=== PATIENT | male | born 1960 | race Caucasian/White ===

== ENCOUNTER 2017-09-04 23:30 | Inpatient (IN) | payer MEDICAID ==
[~2017-09-04] VITALS: Ht 188 cm; Wt 76.7 kg
[2017-09-04 23:30] VITALS: BP 141/107
[2017-09-04 23:45] VITALS: BP 133/82
[2017-09-05] VITALS (42 sets, daily range): BP systolic 100–154; BP diastolic 35–119
[2017-09-05] MEDS ORDERED: ACET-2178 PO (00:55)
[2017-09-05] MEDS ORDERED: PHENYTOIN SODIUM 500 MG in SODIUM CHLORIDE 0.9% 50 ML IV SCH (01:30)
[2017-09-05] MEDS ORDERED: LEVETIRACETAM 500MG PREMIX 100 ML IV SCH (02:00)
[2017-09-05] MEDS: DEXT 5%/LACTATED RINGERS 1,000 ML IV SCH ×2 (03:14→17:51)
[2017-09-05] MEDS: PHENYTOIN SODIUM 100MG/2ML VIAL IV SCH ×3 (06:28→22:14)
[2017-09-05] MEDS ORDERED: GABA400C PO (07:33)
[2017-09-05] MEDS ORDERED: CALC-823 PO (07:33)
[2017-09-05] MEDS ORDERED: DOCU-138 PO (07:33)
[2017-09-05] MEDS ORDERED: FERR324T4 PO (07:33)
[2017-09-05] MEDS ORDERED: OMEG-118 PO (07:33)
[2017-09-05] MEDS: LEVETIRACETAM 500MG PREMIX 100 ML IV SCH ×2 (11:12→20:41)
[2017-09-05] MEDS ORDERED: LORAZEPAM 2MG/ML CPJ IV PRN (13:15)
[2017-09-05] MEDS ORDERED: HYDROXYZINE 25MG TABLET PO PRN (13:15)
[2017-09-05] MEDS: OLANZAPINE 5MG TABLET ODT PO SCH ×2 (13:15→17:12)
[2017-09-05] MEDS: LORAZEPAM 2MG/ML CPJ IV PRN ×2 (13:27→20:54)
[2017-09-05] MEDS: QUETIAPINE FUMARATE 100MG TABLET PO SCH ×2 (14:01→17:12)
[2017-09-05 15:06] LABS: BASOPHILS % 0.6 % (0.0-2.0); EOSINOPHILS % 2.3 % (0.0-5.0); HEMATOCRIT. 43.1 % (42.0-52.0); HEMOGLOBIN. 14.6 g/dL (14.0-18.0); LYMPHOCYTES % 15.8 % (20.0-50.0); MEAN CORPUSCULAR HEMOGLOBIN 30.9 pg (28.0-32.0); MEAN CORPUSCULAR VOLUME 91.1 fL (80.0-94.0); MEAN PLATELET VOLUME 7.7 fl (7.4-10.4); MONOCYTES % 10.6 % (2.0-8.0); NEUTROPHILS % 70.7 % (40.0-76.0); PLATELET 258 x1000/uL (130-400); RED BLOOD CELL COUNT 4.73 mill/uL (4.7-6.1); RED CELL DISTRIBUTION WIDTH 14.7 % (11.6-14.6)
[2017-09-05 15:12] LABS: INR 1.1; PARTIAL THROMBOPLASTIN TIME 31.7 sec (23.4-31.0); PROTHROMBIN TIME 11.4 sec (9.4-11.6)
[2017-09-05 15:28] LABS: CHLORIDE 106 mEq/L (98-107)
[2017-09-05 15:36] LABS: CREATINE KINASE 296 IU/L (39-308)
[2017-09-06] VITALS (58 sets, daily range): BP systolic 101–166; BP diastolic 48–101
[2017-09-06] MEDS: DEXT 5%/LACTATED RINGERS 1,000 ML IV SCH (03:00)
[2017-09-06] MEDS: PHENYTOIN SODIUM 100MG/2ML VIAL IV SCH ×3 (06:24→21:43)
[2017-09-06] MEDS ORDERED: GELATIN SPONGE,ABSORBABLE SZ 100 ONE (06:40)
[2017-09-06] MEDS ORDERED: BACITRACIN 50,000 UNITS/VIAL ONE (06:41)
[2017-09-06] MEDS ORDERED: THROMBIN (BOVINE) 5000 UNITS/VIAL TOP ONE (06:41)
[2017-09-06] MEDS ORDERED: NORMAL SALINE 0.9% 10 ML SYR ONE (06:41)
[2017-09-06] MEDS ORDERED: BACITRACIN 15GM TUBE TOP ONE (06:42)
[2017-09-06] MEDS ORDERED: POVIDONE-IODINE OINT 28.4GM TOP ONE (06:42)
[2017-09-06] MEDS ORDERED: FENTANYL CITRATE/PF 50MCG/ML 5ML VIAL ONE (08:04)
[2017-09-06] MEDS ORDERED: ROCURONIUM BROMIDE 10MG/ML VIAL 5ML IV ONE ×2 (08:04→09:26)
[2017-09-06] MEDS ORDERED: PROPOFOL 200MG/20ML VIAL IV ONE (08:04)
[2017-09-06] MEDS: LEVETIRACETAM 500MG PREMIX 100 ML IV SCH ×2 (08:10→21:06)
[2017-09-06] MEDS ORDERED: ESMOLOL HCL 10MG/ML 10ML VIAL IV ONE (08:10)
[2017-09-06] MEDS ORDERED: PHENYLEPHRINE HCL 10 MG/ML 1ML (IV VIAL) IV ONE (08:11)
[2017-09-06] MEDS ORDERED: MIDAZOLAM HCL 2 MG/2 ML VIAL ONE (08:58)
[2017-09-06] MEDS ORDERED: NITROGLYCERIN 50MG PREMIX 0 ML IV ONE (08:58)
[2017-09-06] MEDS: QUETIAPINE FUMARATE 100MG TABLET PO SCH ×3 (09:00→17:00)
[2017-09-06] MEDS ORDERED: NICARDIPINE 100 MG in SODIUM CHLORIDE 0.9% 60 ML IV PRN (09:00)
[2017-09-06] MEDS ORDERED: HYDROCODONE/APAP 7.5/325MG 1 TAB TABLET PO PRN (09:00)
[2017-09-06] MEDS ORDERED: DEXT 5%/LACTATED RINGERS 1,000 ML IV SCH ×2 (09:00→19:30)
[2017-09-06] MEDS: OLANZAPINE 5MG TABLET ODT PO SCH ×3 (09:00→17:00)
[2017-09-06] MEDS ORDERED: NEOSTIGMINE METHYLSULFATE 1MG/ML 10 ML VIAL ONE (10:05)
[2017-09-06] MEDS ORDERED: GLYCOPYRROLATE 0.2 MG/ML 2ML VIAL ONE (10:05)
[2017-09-06] MEDS ORDERED: MEPERIDINE HCL/PF 100MG/ML CPJ ONE (10:29)
[2017-09-06] MEDS ORDERED: CEFAZOLIN SODIUM 1000MG/VIAL IV SCH (14:00)
[2017-09-06] MEDS: CEFAZOLIN 1000MG PREMIX 50 ML IV SCH (16:44)
[2017-09-06] MEDS: MORPHINE SULFATE 4 MG/ML CPJ (NOT FOR IM USE) IV PRN (16:54)
[2017-09-06] MEDS: LORAZEPAM 2MG/ML CPJ IV PRN (21:43)
[2017-09-07] VITALS (50 sets, daily range): BP systolic 98–152; BP diastolic 61–107
[2017-09-07] MEDS: CEFAZOLIN 1000MG PREMIX 50 ML IV SCH ×3 (02:11→16:46)
[2017-09-07] MEDS: LORAZEPAM 2MG/ML CPJ IV PRN (05:16)
[2017-09-07 05:19] LABS: HEMATOCRIT. 39.8 % (42.0-52.0); HEMOGLOBIN. 13.5 g/dL (14.0-18.0); MEAN CORPUSCULAR HEMOGLOBIN 30.7 pg (28.0-32.0); MEAN CORPUSCULAR VOLUME 90.6 fL (80.0-94.0); MEAN PLATELET VOLUME 8.1 fl (7.4-10.4); PLATELET 250 x1000/uL (130-400); RED BLOOD CELL COUNT 4.39 mill/uL (4.7-6.1); RED CELL DISTRIBUTION WIDTH 14.3 % (11.6-14.6)
[2017-09-07 05:30] LABS: CHLORIDE 105 mEq/L (98-107)
[2017-09-07] MEDS: PHENYTOIN SODIUM 100MG/2ML VIAL IV SCH ×3 (05:54→21:18)
[2017-09-07] MEDS: LEVETIRACETAM 500MG PREMIX 100 ML IV SCH ×2 (08:22→20:32)
[2017-09-07] MEDS ORDERED: PHENYTOIN SODIUM 500 MG in SODIUM CHLORIDE 0.9% 50 ML IV NR (11:00)
[2017-09-07] MEDS: QUETIAPINE FUMARATE 100MG TABLET PO SCH ×3 (11:04→16:50)
[2017-09-07] MEDS: OLANZAPINE 5MG TABLET ODT PO SCH ×3 (11:05→16:50)
[2017-09-07] MEDS: MORPHINE SULFATE 4 MG/ML CPJ (NOT FOR IM USE) IV PRN (12:31)
[2017-09-07 12:48] LABS: PLATELET ESTIMATE NORMAL
[2017-09-08] VITALS (51 sets, daily range): BP systolic 101–165; BP diastolic 27–154
[2017-09-08] MEDS: CEFAZOLIN 1000MG PREMIX 50 ML IV SCH ×2 (01:41→08:20)
[2017-09-08] MEDS: PHENYTOIN SODIUM 100MG/2ML VIAL IV SCH ×3 (05:46→21:35)
[2017-09-08] MEDS: OLANZAPINE 5MG TABLET ODT PO SCH ×3 (08:20→17:07)
[2017-09-08] MEDS: QUETIAPINE FUMARATE 100MG TABLET PO SCH ×3 (08:20→17:07)
[2017-09-08] MEDS: LEVETIRACETAM 500MG PREMIX 100 ML IV SCH ×2 (09:05→20:50)
[2017-09-08] MEDS: MORPHINE SULFATE 4 MG/ML CPJ (NOT FOR IM USE) IV PRN (15:14)
[2017-09-09] VITALS (48 sets, daily range): BP systolic 73–152; BP diastolic 26–124
[2017-09-09] MEDS: PHENYTOIN SODIUM 100MG/2ML VIAL IV SCH (05:23)
[2017-09-09] MEDS: LORAZEPAM 2MG/ML CPJ IV PRN ×2 (05:24→20:41)
[2017-09-09 05:45] LABS: BASOPHILS % 0.7 % (0.0-2.0); EOSINOPHILS % 1.5 % (0.0-5.0); HEMATOCRIT. 40.9 % (42.0-52.0); LYMPHOCYTES % 14.1 % (20.0-50.0); MEAN CORPUSCULAR HEMOGLOBIN 31.2 pg (28.0-32.0); MEAN CORPUSCULAR VOLUME 91.2 fL (80.0-94.0); MONOCYTES % 9.7 % (2.0-8.0); PLATELET 277 x1000/uL (130-400); RED BLOOD CELL COUNT 4.48 mill/uL (4.7-6.1); RED CELL DISTRIBUTION WIDTH 14.4 % (11.6-14.6)
[2017-09-09 06:20] LABS: CHLORIDE 105 mEq/L (98-107)
[2017-09-09] MEDS: OLANZAPINE 5MG TABLET ODT PO SCH ×3 (08:59→17:17)
[2017-09-09] MEDS: QUETIAPINE FUMARATE 100MG TABLET PO SCH ×3 (08:59→17:17)
[2017-09-09] MEDS: LEVETIRACETAM 500MG PREMIX 100 ML IV SCH (09:01)
[2017-09-09] MEDS: PHENYTOIN SODIUM EXTENDED 100MG CAPSULE PO SCH ×2 (14:51→22:25)
[2017-09-09] MEDS: LEVOFLOXACIN 500MG TABLET PO SCH (16:52)
[2017-09-09] MEDS: LEVETIRACETAM 500MG TABLET PO SCH (20:46)
[2017-09-10] VITALS (47 sets, daily range): BP systolic 96–149; BP diastolic 53–103
[2017-09-10] MEDS: PHENYTOIN SODIUM EXTENDED 100MG CAPSULE PO SCH ×3 (05:32→21:13)
[2017-09-10] MEDS: OLANZAPINE 5MG TABLET ODT PO SCH ×3 (09:55→16:55)
[2017-09-10] MEDS: QUETIAPINE FUMARATE 100MG TABLET PO SCH ×3 (09:55→16:55)
[2017-09-10] MEDS: LEVETIRACETAM 500MG TABLET PO SCH ×2 (09:55→21:13)
[2017-09-10] MEDS: LEVOFLOXACIN 500MG TABLET PO SCH (13:15)
[2017-09-11] VITALS (31 sets, daily range): BP systolic 104–151; BP diastolic 49–98
[2017-09-11] MEDS: HALOPERIDOL LACTATE 5MG/ML VIAL IM PRN ×3 (02:04→21:49)
[2017-09-11] MEDS: PHENYTOIN SODIUM EXTENDED 100MG CAPSULE PO SCH ×3 (05:17→21:51)
[2017-09-11] MEDS: OLANZAPINE 5MG TABLET ODT PO SCH ×3 (08:45→18:09)
[2017-09-11] MEDS: QUETIAPINE FUMARATE 100MG TABLET PO SCH ×3 (08:45→18:09)
[2017-09-11] MEDS: LEVETIRACETAM 500MG TABLET PO SCH ×2 (08:46→21:51)
[2017-09-11] MEDS: LEVOFLOXACIN 500MG TABLET PO SCH (13:43)
[2017-09-12] VITALS: BP 123/80
[2017-09-12 04:00] VITALS: BP 112/76
[2017-09-12] MEDS: PHENYTOIN SODIUM EXTENDED 100MG CAPSULE PO SCH ×3 (06:00→22:42)
[2017-09-12 08:00] VITALS: BP 121/65
[2017-09-12] MEDS: QUETIAPINE FUMARATE 100MG TABLET PO SCH ×3 (08:35→17:52)
[2017-09-12] MEDS: LEVETIRACETAM 500MG TABLET PO SCH ×2 (08:36→20:36)
[2017-09-12 12:00] VITALS: BP 111/76
[2017-09-12] MEDS: LEVOFLOXACIN 500MG TABLET PO SCH (12:07)
[2017-09-12] MEDS: OLANZAPINE 5MG TABLET ODT PO SCH ×3 (12:07→17:52)
[2017-09-12] MEDS: HALOPERIDOL LACTATE 5MG/ML VIAL IM PRN ×2 (15:47→23:50)
[2017-09-12 16:00] VITALS: BP 123/88
[2017-09-12 20:00] VITALS: BP 121/78
[2017-09-13] VITALS: BP 121/79
[2017-09-13 04:00] VITALS: BP 113/85
[2017-09-13] MEDS: PHENYTOIN SODIUM EXTENDED 100MG CAPSULE PO SCH ×3 (06:44→21:50)
[2017-09-13 08:00] VITALS: BP 117/82
[2017-09-13] MEDS: LEVETIRACETAM 500MG TABLET PO SCH ×2 (08:43→21:50)
[2017-09-13] MEDS: QUETIAPINE FUMARATE 100MG TABLET PO SCH ×3 (08:43→16:45)
[2017-09-13] MEDS: OLANZAPINE 5MG TABLET ODT PO SCH ×3 (08:46→16:45)
[2017-09-13] MEDS: LEVOFLOXACIN 500MG TABLET PO SCH (11:51)
[2017-09-13 12:00] VITALS: BP 118/86
[2017-09-13 16:00] VITALS: BP 124/82
[2017-09-13] MEDS: HALOPERIDOL LACTATE 5MG/ML VIAL IM PRN ×2 (16:45→20:32)
[2017-09-13 20:00] VITALS: BP 124/84
[2017-09-14] VITALS: BP 122/80
[2017-09-14 04:00] VITALS: BP 118/78
[2017-09-14] MEDS: HALOPERIDOL LACTATE 5MG/ML VIAL IM PRN (04:40)
[2017-09-14] MEDS: PHENYTOIN SODIUM EXTENDED 100MG CAPSULE PO SCH ×3 (07:17→21:13)
[2017-09-14 07:29] VITALS: BP 104/76
[2017-09-14] MEDS: QUETIAPINE FUMARATE 100MG TABLET PO SCH ×2 (08:12→19:14)
[2017-09-14] MEDS: OLANZAPINE 5MG TABLET ODT PO SCH ×2 (08:12→19:14)
[2017-09-14] MEDS: LEVETIRACETAM 500MG TABLET PO SCH ×2 (08:12→21:13)
[2017-09-14] MEDS: LEVOFLOXACIN 500MG TABLET PO SCH (10:02)
[2017-09-14 10:56] VITALS: BP 120/64
[2017-09-14] MEDS: LORAZEPAM 2MG/ML CPJ IV PRN ×2 (15:25→21:13)
[2017-09-14 15:51] VITALS: BP 109/66
[2017-09-14 20:00] VITALS: BP 128/77
[2017-09-15] VITALS: BP 145/88
[2017-09-15] MEDS: LORAZEPAM 2MG/ML CPJ IV PRN ×3 (02:47→16:22)
[2017-09-15] MEDS: HALOPERIDOL LACTATE 5MG/ML VIAL IM PRN ×2 (03:10→17:41)
[2017-09-15 04:00] VITALS: BP 136/77
[2017-09-15] MEDS: PHENYTOIN SODIUM EXTENDED 100MG CAPSULE PO SCH ×3 (06:45→21:09)
[2017-09-15 08:00] VITALS: BP 120/81
[2017-09-15] MEDS: QUETIAPINE FUMARATE 100MG TABLET PO SCH ×2 (10:09→16:26)
[2017-09-15] MEDS: LEVOFLOXACIN 500MG TABLET PO SCH (10:09)
[2017-09-15] MEDS: LEVETIRACETAM 500MG TABLET PO SCH ×2 (10:09→21:09)
[2017-09-15] MEDS: OLANZAPINE 5MG TABLET ODT PO SCH ×2 (10:11→16:26)
[2017-09-15 12:00] VITALS: BP 119/74
[2017-09-15 16:00] VITALS: BP 102/67
[2017-09-16] MEDS: HALOPERIDOL LACTATE 5MG/ML VIAL IM PRN ×3 (01:44→18:02)
[2017-09-16] MEDS: PHENYTOIN SODIUM EXTENDED 100MG CAPSULE PO SCH ×3 (05:33→21:07)
[2017-09-16 07:36] LABS: BASOPHILS % 1.3 % (0.0-2.0); EOSINOPHILS % 2.8 % (0.0-5.0); HEMATOCRIT. 42.3 % (42.0-52.0); HEMOGLOBIN. 14.4 g/dL (14.0-18.0); LYMPHOCYTES % 22.7 % (20.0-50.0); MEAN CORPUSCULAR VOLUME 90.8 fL (80.0-94.0); MEAN PLATELET VOLUME 7.2 fl (7.4-10.4); MONOCYTES % 8.7 % (2.0-8.0); NEUTROPHILS % 64.5 % (40.0-76.0); PLATELET 400 x1000/uL (130-400); RED BLOOD CELL COUNT 4.65 mill/uL (4.7-6.1); RED CELL DISTRIBUTION WIDTH 14.1 % (11.6-14.6)
[2017-09-16 08:00] VITALS: BP 124/85
[2017-09-16 08:07] LABS: CHLORIDE 105 mEq/L (98-107)
[2017-09-16] MEDS: LEVETIRACETAM 500MG TABLET PO SCH ×2 (09:02→21:07)
[2017-09-16] MEDS: QUETIAPINE FUMARATE 100MG TABLET PO SCH ×2 (09:03→18:02)
[2017-09-16] MEDS: OLANZAPINE 5MG TABLET ODT PO SCH ×2 (09:03→18:00)
[2017-09-16] MEDS: LEVOFLOXACIN 500MG TABLET PO SCH (10:08)
[2017-09-16 12:00] VITALS: BP 126/83
[2017-09-16] MEDS: LORAZEPAM 2MG/ML CPJ IV PRN ×2 (15:05→21:07)
[2017-09-16 16:00] VITALS: BP 124/80
[2017-09-16 20:00] VITALS: BP 113/74
[2017-09-17] MEDS: LORAZEPAM 2MG/ML CPJ IV PRN ×2 (01:12→06:39)
[2017-09-17 04:00] VITALS: BP 137/80
[2017-09-17] MEDS: PHENYTOIN SODIUM EXTENDED 100MG CAPSULE PO SCH ×3 (06:39→22:14)
[2017-09-17 08:00] VITALS: BP 121/81
[2017-09-17] MEDS: LEVETIRACETAM 500MG TABLET PO SCH ×2 (09:27→22:14)
[2017-09-17] MEDS: QUETIAPINE FUMARATE 100MG TABLET PO SCH ×2 (09:27→16:29)
[2017-09-17] MEDS: OLANZAPINE 5MG TABLET ODT PO SCH ×2 (09:27→16:29)
[2017-09-17 12:00] VITALS: BP 146/89
[2017-09-17] MEDS: HALOPERIDOL LACTATE 5MG/ML VIAL IM PRN ×2 (12:51→22:22)
[2017-09-17 16:00] VITALS: BP 121/77
[2017-09-17 20:00] VITALS: BP 121/75
[2017-09-18] VITALS: BP 133/79
[2017-09-18] MEDS: LORAZEPAM 2MG/ML CPJ IV PRN ×3 (03:55→21:14)
[2017-09-18 04:00] VITALS: BP 130/71
[2017-09-18] MEDS: PHENYTOIN SODIUM EXTENDED 100MG CAPSULE PO SCH ×3 (06:10→21:42)
[2017-09-18 07:55] VITALS: BP 121/66
[2017-09-18] MEDS: LEVETIRACETAM 500MG TABLET PO SCH ×2 (08:34→21:42)
[2017-09-18] MEDS: QUETIAPINE FUMARATE 100MG TABLET PO SCH ×2 (08:34→17:00)
[2017-09-18] MEDS: OLANZAPINE 5MG TABLET ODT PO SCH ×2 (08:34→17:00)
[2017-09-18] MEDS: LORAZEPAM 2MG/ML CPJ IV NR ×2 (10:55→16:41)
[2017-09-18 12:02] VITALS: BP 119/81
[2017-09-18 16:00] VITALS: BP 106/78
[2017-09-18] MEDS: HALOPERIDOL LACTATE 5MG/ML VIAL IM PRN (16:04)
[2017-09-18 20:00] VITALS: BP 119/72
[2017-09-19] VITALS: BP 121/78
[2017-09-19] MEDS: HALOPERIDOL LACTATE 5MG/ML VIAL IM PRN ×3 (00:32→17:19)
[2017-09-19] MEDS: LORAZEPAM 2MG/ML CPJ IV PRN (01:55)
[2017-09-19 04:00] VITALS: BP 132/82
[2017-09-19] MEDS: PHENYTOIN SODIUM EXTENDED 100MG CAPSULE PO SCH ×3 (07:30→21:41)
[2017-09-19 08:00] VITALS: BP 128/88
[2017-09-19] MEDS: QUETIAPINE FUMARATE 100MG TABLET PO SCH ×2 (09:03→17:18)
[2017-09-19] MEDS: OLANZAPINE 5MG TABLET ODT PO SCH ×2 (09:03→17:00)
[2017-09-19] MEDS: LEVETIRACETAM 500MG TABLET PO SCH ×2 (09:04→21:41)
[2017-09-19 12:00] VITALS: BP 107/73
[2017-09-19] MEDS: LORAZEPAM 2MG/ML CPJ IM PRN (13:07)
[2017-09-19 16:00] VITALS: BP 117/81
[2017-09-19 20:00] VITALS: BP 136/79
[2017-09-19] MEDS: CLONAZEPAM 1MG TABLET PO SCH (21:41)
[2017-09-19] MEDS: RISPERIDONE 1MG TABLET PO SCH (21:48)
[2017-09-20] VITALS: BP 130/90
[2017-09-20] MEDS: HALOPERIDOL LACTATE 5MG/ML VIAL IM PRN ×3 (00:54→18:25)
[2017-09-20 04:00] VITALS: BP 123/91
[2017-09-20 08:00] VITALS: BP 102/77
[2017-09-20] MEDS: OLANZAPINE 5MG TABLET ODT PO SCH ×2 (08:42→18:25)
[2017-09-20] MEDS: RISPERIDONE 1MG TABLET PO SCH ×2 (08:42→21:13)
[2017-09-20] MEDS: LEVETIRACETAM 500MG TABLET PO SCH ×2 (08:42→21:12)
[2017-09-20] MEDS: PHENYTOIN SODIUM EXTENDED 100MG CAPSULE PO SCH ×3 (09:32→21:12)
[2017-09-20] MEDS: CLONAZEPAM 1MG TABLET PO SCH ×3 (09:32→21:12)
[2017-09-20 12:00] VITALS: BP 104/72
[2017-09-20 16:00] VITALS: BP 111/73
[2017-09-20 20:00] VITALS: BP 115/78
[2017-09-21] VITALS: BP 101/71
[2017-09-21 04:00] VITALS: BP 121/84
[2017-09-21] MEDS: PHENYTOIN SODIUM EXTENDED 100MG CAPSULE PO SCH ×3 (06:18→21:44)
[2017-09-21] MEDS: CLONAZEPAM 1MG TABLET PO SCH ×3 (06:18→21:44)
[2017-09-21 07:51] VITALS: BP 111/77
[2017-09-21] MEDS: LEVETIRACETAM 500MG TABLET PO SCH ×2 (08:31→20:34)
[2017-09-21] MEDS: RISPERIDONE 1MG TABLET PO SCH ×2 (08:32→20:34)
[2017-09-21] MEDS: OLANZAPINE 5MG TABLET ODT PO SCH ×2 (08:32→17:17)
[2017-09-21 12:00] VITALS: BP 109/78
[2017-09-21 16:00] VITALS: BP 106/74
[2017-09-21 20:00] VITALS: BP 123/79
[2017-09-21] MEDS: LORAZEPAM 2MG/ML CPJ IM PRN (20:34)
[2017-09-22] VITALS: BP 124/87
[2017-09-22 04:00] VITALS: BP 139/74
[2017-09-22] MEDS: CLONAZEPAM 1MG TABLET PO SCH ×3 (06:56→22:15)
[2017-09-22] MEDS: PHENYTOIN SODIUM EXTENDED 100MG CAPSULE PO SCH ×3 (06:56→22:13)
[2017-09-22 08:11] VITALS: BP 122/83
[2017-09-22 12:04] VITALS: BP 114/78
[2017-09-22] MEDS: LEVETIRACETAM 500MG TABLET PO SCH ×2 (14:15→22:14)
[2017-09-22] MEDS: RISPERIDONE 1MG TABLET PO SCH ×2 (14:15→22:14)
[2017-09-22] MEDS: OLANZAPINE 5MG TABLET ODT PO SCH ×2 (14:17→22:14)
[2017-09-22 16:00] VITALS: BP 95/72
[2017-09-22 20:00] VITALS: BP 101/65
[2017-09-23] VITALS (7 sets, daily range): BP systolic 106–127; BP diastolic 69–84
[2017-09-23] MEDS: RISPERIDONE 1MG TABLET PO SCH ×2 (10:37→22:31)
[2017-09-23] MEDS: PHENYTOIN SODIUM EXTENDED 100MG CAPSULE PO SCH ×2 (10:37→22:31)
[2017-09-23] MEDS: OLANZAPINE 5MG TABLET ODT PO SCH ×2 (10:37→17:24)
[2017-09-23] MEDS: CLONAZEPAM 1MG TABLET PO SCH ×2 (10:37→22:32)
[2017-09-23] MEDS: LEVETIRACETAM 500MG TABLET PO SCH ×2 (10:37→22:32)
[2017-09-24] VITALS: BP 118/74
[2017-09-24 04:00] VITALS: BP 130/86
[2017-09-24] MEDS: PHENYTOIN SODIUM EXTENDED 100MG CAPSULE PO SCH ×3 (06:55→21:22)
[2017-09-24] MEDS: CLONAZEPAM 1MG TABLET PO SCH ×3 (06:55→21:22)
[2017-09-24 08:12] VITALS: BP 121/81
[2017-09-24] MEDS: LEVETIRACETAM 500MG TABLET PO SCH ×2 (08:27→21:22)
[2017-09-24] MEDS: RISPERIDONE 1MG TABLET PO SCH ×2 (08:27→21:22)
[2017-09-24] MEDS: OLANZAPINE 5MG TABLET ODT PO SCH ×2 (08:27→18:21)
[2017-09-24 12:00] VITALS: BP 110/82
[2017-09-24 16:00] VITALS: BP 116/70
[2017-09-24 20:00] VITALS: BP 107/77
[2017-09-24] MEDS: HALOPERIDOL LACTATE 5MG/ML VIAL IM PRN (21:22)
[2017-09-25] VITALS: BP 122/80
[2017-09-25 04:00] VITALS: BP 110/76
[2017-09-25] MEDS: PHENYTOIN SODIUM EXTENDED 100MG CAPSULE PO SCH ×3 (06:20→22:18)
[2017-09-25 08:00] VITALS: BP 125/80
[2017-09-25] MEDS: LEVETIRACETAM 500MG TABLET PO SCH ×2 (09:56→22:19)
[2017-09-25] MEDS: RISPERIDONE 1MG TABLET PO SCH ×2 (09:56→22:18)
[2017-09-25] MEDS: OLANZAPINE 5MG TABLET ODT PO SCH ×2 (09:59→18:26)
[2017-09-25 12:00] VITALS: BP 103/80
[2017-09-25 15:56] VITALS: BP 109/64
[2017-09-25] MEDS: HALOPERIDOL LACTATE 5MG/ML VIAL IM PRN (16:56)
[2017-09-25 20:00] VITALS: BP 118/76
[2017-09-26] MEDS: HALOPERIDOL LACTATE 5MG/ML VIAL IM PRN (00:53)
[2017-09-26 04:00] VITALS: BP 106/66
[2017-09-26] MEDS: PHENYTOIN SODIUM EXTENDED 100MG CAPSULE PO SCH ×3 (06:18→21:56)
[2017-09-26 07:32] VITALS: BP 101/74
[2017-09-26] MEDS: LEVETIRACETAM 500MG TABLET PO SCH ×2 (10:01→21:56)
[2017-09-26] MEDS: RISPERIDONE 1MG TABLET PO SCH ×2 (10:01→21:57)
[2017-09-26] MEDS: OLANZAPINE 5MG TABLET ODT PO SCH ×2 (10:02→16:57)
[2017-09-26 11:21] VITALS: BP 107/84
[2017-09-26 16:06] VITALS: BP 107/76
[2017-09-26 20:00] VITALS: BP 106/72
[2017-09-27] VITALS: BP 114/80
[2017-09-27 04:00] VITALS: BP 125/82
[2017-09-27] MEDS: PHENYTOIN SODIUM EXTENDED 100MG CAPSULE PO SCH ×2 (05:52→13:27)
[2017-09-27 07:52] VITALS: BP 109/72
[2017-09-27] MEDS: RISPERIDONE 1MG TABLET PO SCH ×2 (09:33→20:17)
[2017-09-27] MEDS: LEVETIRACETAM 500MG TABLET PO SCH ×2 (09:34→20:16)
[2017-09-27] MEDS: OLANZAPINE 5MG TABLET ODT PO SCH ×2 (09:34→16:42)
[2017-09-27 11:21] VITALS: BP 120/80
[2017-09-27 15:52] VITALS: BP 113/68
[2017-09-27 20:00] VITALS: BP 117/72
[2017-09-28] VITALS: BP 115/74
[2017-09-28] MEDS: PHENYTOIN SODIUM EXTENDED 100MG CAPSULE PO SCH ×4 (00:42→21:09)
[2017-09-28 04:00] VITALS: BP 124/78
[2017-09-28 08:00] VITALS: BP 105/75
[2017-09-28] MEDS: OLANZAPINE 5MG TABLET ODT PO SCH ×2 (09:13→17:15)
[2017-09-28] MEDS: LEVETIRACETAM 500MG TABLET PO SCH ×2 (09:14→21:09)
[2017-09-28] MEDS: RISPERIDONE 1MG TABLET PO SCH ×2 (09:14→21:09)
[2017-09-28 12:00] VITALS: BP 99/72
[2017-09-28 16:00] VITALS: BP 111/79
[2017-09-29] VITALS: BP 126/78
[2017-09-29 04:00] VITALS: BP 117/62
[2017-09-29] MEDS: PHENYTOIN SODIUM EXTENDED 100MG CAPSULE PO SCH ×3 (05:55→21:45)
[2017-09-29 08:00] VITALS: BP 101/67
[2017-09-29] MEDS: OLANZAPINE 5MG TABLET ODT PO SCH ×2 (09:29→17:35)
[2017-09-29] MEDS: LEVETIRACETAM 500MG TABLET PO SCH ×2 (09:29→21:45)
[2017-09-29] MEDS: RISPERIDONE 1MG TABLET PO SCH ×2 (09:30→21:45)
[2017-09-29 12:00] VITALS: BP 106/74
[2017-09-29 16:00] VITALS: BP 102/66
[2017-09-29] MEDS: HALOPERIDOL LACTATE 5MG/ML VIAL IM PRN (18:03)
[2017-09-30] VITALS (7 sets, daily range): BP systolic 102–126; BP diastolic 63–79
[2017-09-30] MEDS: HALOPERIDOL LACTATE 5MG/ML VIAL IM PRN ×3 (02:09→22:49)
[2017-09-30] MEDS: PHENYTOIN SODIUM EXTENDED 100MG CAPSULE PO SCH ×3 (05:54→21:00)
[2017-09-30 07:11] LABS: BASOPHILS % 1.3 % (0.0-2.0); HEMATOCRIT. 39.9 % (42.0-52.0); HEMOGLOBIN. 13.3 g/dL (14.0-18.0); LYMPHOCYTES % 36.7 % (20.0-50.0); MEAN CORPUSCULAR HEMOGLOBIN 29.9 pg (28.0-32.0); MEAN CORPUSCULAR VOLUME 89.5 fL (80.0-94.0); MONOCYTES % 10.2 % (2.0-8.0); NEUTROPHILS % 48.8 % (40.0-76.0); PLATELET 278 x1000/uL (130-400); RED BLOOD CELL COUNT 4.46 mill/uL (4.7-6.1); RED CELL DISTRIBUTION WIDTH 13.8 % (11.6-14.6)
[2017-09-30 07:31] LABS: CHLORIDE 109 mEq/L (98-107)
[2017-09-30] MEDS: LEVETIRACETAM 500MG TABLET PO SCH ×2 (09:39→20:53)
[2017-09-30] MEDS: RISPERIDONE 1MG TABLET PO SCH ×2 (09:39→20:53)
[2017-09-30] MEDS: OLANZAPINE 5MG TABLET ODT PO SCH ×2 (09:39→16:41)
[2017-10-01 04:00] VITALS: BP 112/72
[2017-10-01] MEDS: PHENYTOIN SODIUM EXTENDED 100MG CAPSULE PO SCH ×3 (05:32→21:11)
[2017-10-01 07:28] VITALS: BP 114/79
[2017-10-01] MEDS: LEVETIRACETAM 500MG TABLET PO SCH ×2 (08:44→21:12)
[2017-10-01] MEDS: OLANZAPINE 5MG TABLET ODT PO SCH ×2 (08:44→16:33)
[2017-10-01] MEDS: RISPERIDONE 1MG TABLET PO SCH ×2 (08:44→21:16)
[2017-10-01 12:10] VITALS: BP 98/72
[2017-10-01 16:19] VITALS: BP 109/73
[2017-10-01 20:00] VITALS: BP 95/59
[2017-10-02] VITALS: BP 127/69
[2017-10-02 04:00] VITALS: BP 113/75
[2017-10-02] MEDS: PHENYTOIN SODIUM EXTENDED 100MG CAPSULE PO SCH ×3 (06:10→21:56)
[2017-10-02] MEDS: LEVETIRACETAM 500MG TABLET PO SCH ×2 (08:47→21:56)
[2017-10-02] MEDS: HALOPERIDOL LACTATE 5MG/ML VIAL IM PRN ×2 (08:47→17:39)
[2017-10-02] MEDS: RISPERIDONE 1MG TABLET PO SCH ×2 (08:47→21:56)
[2017-10-02] MEDS: OLANZAPINE 5MG TABLET ODT PO SCH ×2 (08:48→17:39)
[2017-10-02 20:00] VITALS: BP 114/70
[2017-10-03] VITALS: BP_SYST 122; BP_SYST 129; BP_DIAS 84; BP_DIAS 88
[2017-10-03] MEDS: HALOPERIDOL LACTATE 5MG/ML VIAL IM PRN ×2 (02:14→22:38)
[2017-10-03 04:00] VITALS: BP 131/76
[2017-10-03] MEDS: CLONAZEPAM 0.5MG TABLET PO SCH ×3 (05:49→21:02)
[2017-10-03 08:00] VITALS: BP 113/75
[2017-10-03] MEDS: PHENYTOIN SODIUM EXTENDED 100MG CAPSULE PO SCH ×2 (08:17→17:17)
[2017-10-03] MEDS: LEVETIRACETAM 250MG TABLET PO SCH ×2 (08:18→21:02)
[2017-10-03] MEDS: RISPERIDONE 1MG TABLET PO SCH ×2 (08:18→21:02)
[2017-10-03] MEDS: OLANZAPINE 5MG TABLET ODT PO SCH (08:21)
[2017-10-03 12:00] VITALS: BP 110/76
[2017-10-03 16:00] VITALS: BP 110/70
[2017-10-03 20:00] VITALS: BP 114/76
[2017-10-04 04:00] VITALS: BP 113/72
[2017-10-04] MEDS: CLONAZEPAM 0.5MG TABLET PO SCH ×3 (05:50→21:21)
[2017-10-04 07:56] VITALS: BP 103/67
[2017-10-04] MEDS: RISPERIDONE 1MG TABLET PO SCH ×2 (08:46→21:21)
[2017-10-04] MEDS: PHENYTOIN SODIUM EXTENDED 100MG CAPSULE PO SCH ×3 (08:46→16:38)
[2017-10-04] MEDS: LEVETIRACETAM 250MG TABLET PO SCH ×2 (08:46→21:21)
[2017-10-04 12:00] VITALS: BP 108/68
[2017-10-04] MEDS: HALOPERIDOL LACTATE 5MG/ML VIAL IM PRN (14:04)
[2017-10-04 16:00] VITALS: BP 100/65
[2017-10-04 20:00] VITALS: BP 151/81
[2017-10-04] MEDS: OLANZAPINE 5MG TABLET PO SCH (21:21)
[2017-10-05] VITALS: BP 145/79
[2017-10-05 04:00] VITALS: BP 117/71
[2017-10-05] MEDS: CLONAZEPAM 0.5MG TABLET PO SCH ×4 (05:18→21:15)
[2017-10-05 08:00] VITALS: BP 97/72
[2017-10-05] MEDS: PHENYTOIN SODIUM EXTENDED 100MG CAPSULE PO SCH ×2 (08:06→16:06)
[2017-10-05] MEDS: LEVETIRACETAM 250MG TABLET PO SCH ×2 (08:06→21:15)
[2017-10-05] MEDS: OLANZAPINE 5MG TABLET PO SCH (08:06)
[2017-10-05] MEDS: RISPERIDONE 1MG TABLET PO SCH ×2 (08:06→21:15)
[2017-10-05 12:00] VITALS: BP 109/80
[2017-10-05 16:00] VITALS: BP 114/76
[2017-10-05 19:56] LABS: EOSINOPHILS % 2.4 % (0.0-5.0); HEMATOCRIT. 39.6 % (42.0-52.0); HEMOGLOBIN. 13.4 g/dL (14.0-18.0); LYMPHOCYTES % 21.7 % (20.0-50.0); MEAN CORPUSCULAR HEMOGLOBIN 30.1 pg (28.0-32.0); MEAN CORPUSCULAR VOLUME 88.7 fL (80.0-94.0); MEAN PLATELET VOLUME 8.1 fl (7.4-10.4); MONOCYTES % 8.3 % (2.0-8.0); NEUTROPHILS % 66.6 % (40.0-76.0); PLATELET 245 x1000/uL (130-400); RED BLOOD CELL COUNT 4.46 mill/uL (4.7-6.1); RED CELL DISTRIBUTION WIDTH 13.9 % (11.6-14.6)
[2017-10-05 20:00] VITALS: BP 117/77
[2017-10-05 20:00] LABS: CHLORIDE 106 mEq/L (98-107)
[2017-10-05] MEDS: HALOPERIDOL LACTATE 5MG/ML VIAL IM PRN (21:15)
[2017-10-06] VITALS: BP 146/82
[2017-10-06 04:00] VITALS: BP 100/57
[2017-10-06] MEDS: CLONAZEPAM 0.5MG TABLET PO SCH ×3 (05:53→21:53)
[2017-10-06 08:00] VITALS: BP 96/70
[2017-10-06] MEDS: PHENYTOIN SODIUM EXTENDED 100MG CAPSULE PO SCH ×2 (09:55→18:14)
[2017-10-06] MEDS: RISPERIDONE 1MG TABLET PO SCH ×2 (09:55→21:53)
[2017-10-06] MEDS: LEVETIRACETAM 250MG TABLET PO SCH ×2 (09:55→21:53)
[2017-10-06] MEDS: OLANZAPINE 5MG TABLET PO SCH (09:56)
[2017-10-06 12:00] VITALS: BP 113/69
[2017-10-06 16:00] VITALS: BP 105/72
[2017-10-06] MEDS: HALOPERIDOL LACTATE 5MG/ML VIAL IM PRN (16:50)
[2017-10-06 20:00] VITALS: BP 117/89
[2017-10-07] VITALS (7 sets, daily range): BP systolic 101–139; BP diastolic 74–96
[2017-10-07] MEDS: CLONAZEPAM 0.5MG TABLET PO SCH ×3 (05:45→21:37)
[2017-10-07] MEDS: LEVETIRACETAM 250MG TABLET PO SCH ×2 (09:18→21:37)
[2017-10-07] MEDS: PHENYTOIN SODIUM EXTENDED 100MG CAPSULE PO SCH (09:18)
[2017-10-07] MEDS: OLANZAPINE 5MG TABLET PO SCH ×2 (09:18→21:37)
[2017-10-07] MEDS: RISPERIDONE 1MG TABLET PO SCH ×2 (09:19→21:37)
[2017-10-07] MEDS: HALOPERIDOL LACTATE 5MG/ML VIAL IM PRN (16:30)
[2017-10-08] VITALS: BP 116/81
[2017-10-08 04:00] VITALS: BP 113/82
[2017-10-08] MEDS: CLONAZEPAM 0.5MG TABLET PO SCH (07:45)
[2017-10-08 08:25] VITALS: BP 118/79
[2017-10-08] MEDS: RISPERIDONE 1MG TABLET PO SCH ×2 (09:00→22:33)
[2017-10-08] MEDS: OLANZAPINE 5MG TABLET PO SCH ×2 (09:00→18:29)
[2017-10-08 12:00] VITALS: BP 112/82
[2017-10-08] MEDS ORDERED: DEXT 5%/0.45% NACL KCL 10MEQ/L 1,000 ML IV SCH (14:00)
[2017-10-08 15:06] LABS: BASOPHILS % 1.2 % (0.0-2.0); EOSINOPHILS % 3.4 % (0.0-5.0); HEMATOCRIT. 42.4 % (42.0-52.0); HEMOGLOBIN. 14.1 g/dL (14.0-18.0); LYMPHOCYTES % 43.8 % (20.0-50.0); MEAN CORPUSCULAR HEMOGLOBIN 29.8 pg (28.0-32.0); MEAN CORPUSCULAR VOLUME 89.4 fL (80.0-94.0); MEAN PLATELET VOLUME 7.5 fl (7.4-10.4); MONOCYTES % 9.9 % (2.0-8.0); NEUTROPHILS % 41.7 % (40.0-76.0); PLATELET 242 x1000/uL (130-400); RED BLOOD CELL COUNT 4.74 mill/uL (4.7-6.1); RED CELL DISTRIBUTION WIDTH 14.1 % (11.6-14.6)
[2017-10-08 15:17] LABS: CHLORIDE 107 mEq/L (98-107)
[2017-10-08 16:00] VITALS: BP 115/80
[2017-10-08 20:00] VITALS: BP 115/76
[2017-10-09] VITALS: BP 126/82
[2017-10-09 04:00] VITALS: BP 131/81
[2017-10-09 08:00] VITALS: BP 117/87
[2017-10-09] MEDS: RISPERIDONE 1MG TABLET PO SCH ×2 (09:09→20:33)
[2017-10-09] MEDS: OLANZAPINE 5MG TABLET PO SCH ×2 (09:09→18:59)
[2017-10-09 12:00] VITALS: BP 137/83
[2017-10-09 16:00] VITALS: BP 131/81
[2017-10-09 19:00] VITALS: BP 111/79
[2017-10-10] VITALS: BP 124/86
[2017-10-10 04:00] VITALS: BP 120/80
[2017-10-10] MEDS: HALOPERIDOL LACTATE 5MG/ML VIAL IM PRN (04:34)
[2017-10-10 08:00] VITALS: BP 116/81
[2017-10-10] MEDS: OLANZAPINE 5MG TABLET PO SCH ×2 (08:35→17:23)
[2017-10-10] MEDS: RISPERIDONE 1MG TABLET PO SCH ×2 (08:36→20:22)
[2017-10-10 12:28] VITALS: BP 121/81
[2017-10-10] MEDS: CARBAMAZEPINE 200MG TABLET PO SCH ×2 (13:19→20:22)
[2017-10-10 16:00] VITALS: BP 109/75
[2017-10-10 20:00] VITALS: BP 117/76
[2017-10-11] VITALS: BP 117/62
[2017-10-11 04:00] VITALS: BP 126/72
[2017-10-11 08:00] VITALS: BP 119/81
[2017-10-11] MEDS: OLANZAPINE 5MG TABLET PO SCH ×2 (08:50→18:08)
[2017-10-11] MEDS: CARBAMAZEPINE 200MG TABLET PO SCH ×2 (08:50→21:49)
[2017-10-11] MEDS: RISPERIDONE 1MG TABLET PO SCH ×2 (08:50→21:50)
[2017-10-11 12:00] VITALS: BP 100/66
[2017-10-11 16:00] VITALS: BP 104/77
[2017-10-11 20:00] VITALS: BP 117/88
[2017-10-12] VITALS: BP 120/72
[2017-10-12 04:00] VITALS: BP 123/88
[2017-10-12 08:00] VITALS: BP 106/73
[2017-10-12] MEDS: OLANZAPINE 5MG TABLET PO SCH ×2 (09:25→17:36)
[2017-10-12] MEDS: CARBAMAZEPINE 200MG TABLET PO SCH ×2 (09:25→22:54)
[2017-10-12] MEDS: RISPERIDONE 1MG TABLET PO SCH ×2 (09:26→22:54)
[2017-10-12 12:00] VITALS: BP 123/84
[2017-10-12 16:00] VITALS: BP 110/75
[2017-10-12 20:00] VITALS: BP 113/70
[2017-10-13] VITALS: BP 119/76
[2017-10-13 04:00] VITALS: BP 116/71
[2017-10-13 08:00] VITALS: BP 106/66
[2017-10-13] MEDS: RISPERIDONE 1MG TABLET PO SCH ×2 (09:40→20:19)
[2017-10-13] MEDS: CARBAMAZEPINE 200MG TABLET PO SCH ×2 (09:40→20:19)
[2017-10-13] MEDS: OLANZAPINE 5MG TABLET PO SCH ×2 (09:40→16:49)
[2017-10-13 12:00] VITALS: BP 93/65
[2017-10-13 15:35] VITALS: BP 105/72
[2017-10-13 20:00] VITALS: BP 101/68
[2017-10-14] VITALS: BP 107/72
[2017-10-14 04:00] VITALS: BP 99/64
[2017-10-14 08:00] VITALS: BP 92/62
[2017-10-14] MEDS: CARBAMAZEPINE 200MG TABLET PO SCH ×2 (08:22→20:33)
[2017-10-14] MEDS: RISPERIDONE 1MG TABLET PO SCH ×2 (08:22→20:33)
[2017-10-14] MEDS: OLANZAPINE 5MG TABLET PO SCH ×2 (08:22→16:32)
[2017-10-14 12:00] VITALS: BP 96/62
[2017-10-14 16:00] VITALS: BP 112/73
[2017-10-14] MEDS: OLANZAPINE 2.5MG TABLET PO SCH (17:00)
[2017-10-14 20:00] VITALS: BP_SYST 87; BP_SYST 92; BP_DIAS 58; BP_DIAS 66
[2017-10-15] VITALS: BP 95/70
[2017-10-15] MEDS: HALOPERIDOL LACTATE 5MG/ML VIAL IM PRN ×2 (02:05→19:14)
[2017-10-15 04:00] VITALS: BP 96/57
[2017-10-15 06:33] LABS: BASOPHILS % 0.5 % (0.0-2.0); EOSINOPHILS % 0.6 % (0.0-5.0); HEMATOCRIT. 40.3 % (42.0-52.0); HEMOGLOBIN. 13.6 g/dL (14.0-18.0); LYMPHOCYTES % 10.3 % (20.0-50.0); MEAN CORPUSCULAR VOLUME 88.8 fL (80.0-94.0); MEAN PLATELET VOLUME 7.8 fl (7.4-10.4); MONOCYTES % 6.5 % (2.0-8.0); NEUTROPHILS % 82.1 % (40.0-76.0); PLATELET 221 x1000/uL (130-400); RED BLOOD CELL COUNT 4.53 mill/uL (4.7-6.1); RED CELL DISTRIBUTION WIDTH 14.5 % (11.6-14.6)
[2017-10-15 06:57] LABS: CHLORIDE 104 mEq/L (98-107)
[2017-10-15 08:00] VITALS: BP 98/60
[2017-10-15] MEDS: CARBAMAZEPINE 200MG TABLET PO SCH ×2 (09:27→20:48)
[2017-10-15] MEDS: OLANZAPINE 2.5MG TABLET PO SCH ×2 (09:27→17:49)
[2017-10-15] MEDS: RISPERIDONE 1MG TABLET PO SCH ×2 (09:27→20:48)
[2017-10-15 12:00] VITALS: BP 98/70
[2017-10-15 16:00] VITALS: BP 96/61
[2017-10-15 20:00] VITALS: BP 123/74
[2017-10-16] VITALS: BP 132/80
[2017-10-16] MEDS: HALOPERIDOL LACTATE 5MG/ML VIAL IM PRN ×2 (03:26→16:28)
[2017-10-16 04:00] VITALS: BP 129/70
[2017-10-16 08:00] VITALS: BP 110/71
[2017-10-16] MEDS: RISPERIDONE 1MG TABLET PO SCH ×2 (09:06→21:08)
[2017-10-16] MEDS: CARBAMAZEPINE 200MG TABLET PO SCH ×2 (09:06→21:08)
[2017-10-16] MEDS: OLANZAPINE 2.5MG TABLET PO SCH ×2 (09:06→16:28)
[2017-10-16 12:00] VITALS: BP 116/71
[2017-10-16 20:00] VITALS: BP 103/73
[2017-10-17 04:00] VITALS: BP 126/72
[2017-10-17 08:00] VITALS: BP 91/58
[2017-10-17] MEDS: OLANZAPINE 2.5MG TABLET PO SCH ×2 (11:11→17:03)
[2017-10-17] MEDS: RISPERIDONE 1MG TABLET PO SCH ×2 (11:12→21:10)
[2017-10-17] MEDS: CARBAMAZEPINE 200MG TABLET PO SCH ×2 (11:12→21:10)
[2017-10-17 12:00] VITALS: BP 102/74
[2017-10-17 16:00] VITALS: BP 100/64
[2017-10-17 20:00] VITALS: BP 115/76
[2017-10-18 04:00] VITALS: BP 126/84
[2017-10-18 08:00] VITALS: BP 109/76
[2017-10-18] MEDS: CARBAMAZEPINE 200MG TABLET PO SCH ×2 (08:27→20:59)
[2017-10-18] MEDS: OLANZAPINE 2.5MG TABLET PO SCH ×2 (08:27→16:57)
[2017-10-18 12:00] VITALS: BP 107/77
[2017-10-18 16:08] VITALS: BP 98/66
[2017-10-18 20:00] VITALS: BP 90/58
[2017-10-18] MEDS: HALOPERIDOL LACTATE 5MG/ML VIAL IM PRN (23:55)
[2017-10-19] VITALS: BP 100/62
[2017-10-19 04:00] VITALS: BP 126/72
[2017-10-19 08:00] VITALS: BP 102/71
[2017-10-19] MEDS: OLANZAPINE 2.5MG TABLET PO SCH ×2 (10:05→18:18)
[2017-10-19] MEDS: CARBAMAZEPINE 200MG TABLET PO SCH (10:05)
[2017-10-19 12:00] VITALS: BP 105/68
[2017-10-19 16:00] VITALS: BP 105/68
[2017-10-19] MEDS: HALOPERIDOL LACTATE 5MG/ML VIAL IM PRN (19:56)
[2017-10-19 20:00] VITALS: BP 110/70
[2017-10-20 00:35] VITALS: BP 126/70
[2017-10-20 04:13] VITALS: BP 108/74
[2017-10-20 08:24] VITALS: BP 109/64
[2017-10-20 12:00] VITALS: BP 118/73
[2017-10-20] MEDS: OLANZAPINE 2.5MG TABLET PO SCH ×2 (12:19→17:00)
[2017-10-20] MEDS: CARBAMAZEPINE 200MG TABLET PO SCH ×3 (12:19→20:50)
[2017-10-20 16:00] VITALS: BP 106/64
[2017-10-20 20:00] VITALS: BP 116/74
[2017-10-20] MEDS: HALOPERIDOL LACTATE 5MG/ML VIAL IM PRN (21:02)
[2017-10-21] VITALS (7 sets, daily range): BP systolic 97–126; BP diastolic 62–88
[2017-10-21] MEDS: CARBAMAZEPINE 200MG TABLET PO SCH ×2 (09:50→21:53)
[2017-10-21] MEDS: OLANZAPINE 2.5MG TABLET PO SCH ×2 (09:52→17:38)
[2017-10-22 04:00] VITALS: BP 112/56
[2017-10-22 08:00] VITALS: BP 114/69
[2017-10-22] MEDS: OLANZAPINE 2.5MG TABLET PO SCH ×2 (08:37→18:49)
[2017-10-22] MEDS: CARBAMAZEPINE 200MG TABLET PO SCH ×2 (08:37→21:22)
[2017-10-22 12:00] VITALS: BP 95/64
[2017-10-22 16:00] VITALS: BP 94/60
[2017-10-22 20:00] VITALS: BP 143/89
[2017-10-22] MEDS: HALOPERIDOL LACTATE 5MG/ML VIAL IM PRN (21:22)
[2017-10-23 00:07] VITALS: BP 145/85
[2017-10-23 04:00] VITALS: BP 138/85
[2017-10-23 08:00] VITALS: BP 132/85
[2017-10-23] MEDS: OLANZAPINE 2.5MG TABLET PO SCH ×2 (10:19→17:32)
[2017-10-23] MEDS: CARBAMAZEPINE 200MG TABLET PO SCH ×2 (10:20→22:56)
[2017-10-23 12:01] VITALS: BP 139/82
[2017-10-23] MEDS: HALOPERIDOL LACTATE 5MG/ML VIAL IM PRN (14:11)
[2017-10-23 16:00] VITALS: BP 136/88
[2017-10-23 20:00] VITALS: BP 105/70
[2017-10-24] VITALS: BP 135/72
[2017-10-24] MEDS: HALOPERIDOL LACTATE 5MG/ML VIAL IM PRN (00:11)
[2017-10-24 04:00] VITALS: BP 115/69
[2017-10-24 08:06] VITALS: BP 120/73
[2017-10-24] MEDS: CARBAMAZEPINE 200MG TABLET PO SCH ×2 (09:08→21:05)
[2017-10-24] MEDS: OLANZAPINE 2.5MG TABLET PO SCH ×2 (09:09→17:29)
[2017-10-24 12:05] VITALS: BP 93/59
[2017-10-24] MEDS: ENOXAPARIN 40MG/0.4ML SYR SUBCUT SCH (12:41)
[2017-10-24 20:00] VITALS: BP 123/79
[2017-10-25] VITALS: BP 131/72
[2017-10-25 04:00] VITALS: BP 126/78
[2017-10-25 08:00] VITALS: BP 118/74
[2017-10-25] MEDS: CARBAMAZEPINE 200MG TABLET PO SCH ×2 (08:52→23:33)
[2017-10-25] MEDS: OLANZAPINE 2.5MG TABLET PO SCH ×2 (08:52→17:39)
[2017-10-25] MEDS: ENOXAPARIN 40MG/0.4ML SYR SUBCUT SCH (11:51)
[2017-10-25 12:00] VITALS: BP 94/66
[2017-10-25 16:00] VITALS: BP 103/67
[2017-10-25] MEDS: HALOPERIDOL LACTATE 5MG/ML VIAL IM PRN (18:46)
[2017-10-25 20:00] VITALS: BP 116/60
[2017-10-25] MEDS ORDERED: HALOPERIDOL LACTATE 5MG/ML VIAL IM NR (20:56)
[2017-10-26] VITALS: BP 110/64
[2017-10-26 04:00] VITALS: BP 118/74
[2017-10-26 07:51] VITALS: BP 98/62
[2017-10-26] MEDS: OLANZAPINE 2.5MG TABLET PO SCH ×2 (08:22→17:24)
[2017-10-26] MEDS: CARBAMAZEPINE 200MG TABLET PO SCH ×2 (08:22→22:14)
[2017-10-26 12:06] VITALS: BP 104/60
[2017-10-26] MEDS: ENOXAPARIN 40MG/0.4ML SYR SUBCUT SCH (12:17)
[2017-10-26 15:58] VITALS: BP 129/78
[2017-10-26 20:00] VITALS: BP 125/76
[2017-10-27] VITALS: BP 119/80
[2017-10-27 04:00] VITALS: BP 124/80
[2017-10-27 08:00] VITALS: BP 107/75
[2017-10-27] MEDS: CARBAMAZEPINE 200MG TABLET PO SCH ×2 (10:08→20:45)
[2017-10-27] MEDS: OLANZAPINE 2.5MG TABLET PO SCH ×2 (10:08→21:57)
[2017-10-27 12:00] VITALS: BP 110/73
[2017-10-27] MEDS: ENOXAPARIN 40MG/0.4ML SYR SUBCUT SCH (14:34)
[2017-10-27 16:00] VITALS: BP 135/87
[2017-10-27 20:00] VITALS: BP 120/76
[2017-10-28] VITALS: BP 127/78
[2017-10-28 04:00] VITALS: BP 123/87
[2017-10-28 08:00] VITALS: BP 104/66
[2017-10-28] MEDS: OLANZAPINE 2.5MG TABLET PO SCH ×2 (08:54→17:57)
[2017-10-28] MEDS: CARBAMAZEPINE 200MG TABLET PO SCH ×2 (08:54→22:12)
[2017-10-28 12:00] VITALS: BP 123/80
[2017-10-28] MEDS: HALOPERIDOL LACTATE 5MG/ML VIAL IM PRN ×2 (12:24→23:39)
[2017-10-28 16:00] VITALS: BP 126/78
[2017-10-28] MEDS: ENOXAPARIN 40MG/0.4ML SYR SUBCUT SCH (17:57)
[2017-10-28 20:00] VITALS: BP 109/73
[2017-10-29] VITALS: BP 115/71
[2017-10-29 04:00] VITALS: BP 122/79
[2017-10-29 08:00] VITALS: BP 90/54
[2017-10-29] MEDS: CARBAMAZEPINE 200MG TABLET PO SCH ×2 (09:42→21:26)
[2017-10-29] MEDS: OLANZAPINE 2.5MG TABLET PO SCH ×2 (09:42→17:54)
[2017-10-29 12:00] VITALS: BP 119/82
[2017-10-29 16:00] VITALS: BP 105/73
[2017-10-29] MEDS: ENOXAPARIN 40MG/0.4ML SYR SUBCUT SCH (17:56)
[2017-10-29] MEDS: HALOPERIDOL LACTATE 5MG/ML VIAL IM PRN (18:14)
[2017-10-29 20:00] VITALS: BP 108/78
[2017-10-30] VITALS: BP 114/72
[2017-10-30 04:00] VITALS: BP 145/88
[2017-10-30 08:00] VITALS: BP 121/85
[2017-10-30] MEDS: OLANZAPINE 2.5MG TABLET PO SCH ×2 (09:18→16:59)
[2017-10-30] MEDS: CARBAMAZEPINE 200MG TABLET PO SCH ×2 (09:18→21:23)
[2017-10-30 12:00] VITALS: BP 149/95
[2017-10-30] MEDS: ENOXAPARIN 40MG/0.4ML SYR SUBCUT SCH (12:13)
[2017-10-30 16:00] VITALS: BP 118/78
[2017-10-30 20:00] VITALS: BP 117/80
[2017-10-31] VITALS: BP 119/74
[2017-10-31 04:00] VITALS: BP 129/86
[2017-10-31 08:00] VITALS: BP 113/79
[2017-10-31] MEDS: CARBAMAZEPINE 200MG TABLET PO SCH (09:54)
[2017-10-31] MEDS: OLANZAPINE 2.5MG TABLET PO SCH ×2 (09:54→16:39)
[2017-10-31] MEDS: ENOXAPARIN 40MG/0.4ML SYR SUBCUT SCH (11:31)
[2017-10-31 11:59] VITALS: BP 99/65
[2017-10-31] MEDS: HALOPERIDOL LACTATE 5MG/ML VIAL IM PRN (15:18)
[2017-10-31 16:00] VITALS: BP 120/70
[2017-10-31 20:00] VITALS: BP 112/76
[2017-11-01] VITALS: BP 128/75
[2017-11-01] MEDS: CARBAMAZEPINE 200MG TABLET PO SCH ×3 (00:06→22:34)
[2017-11-01 04:00] VITALS: BP 115/77
[2017-11-01 08:00] VITALS: BP 119/80
[2017-11-01] MEDS: OLANZAPINE 2.5MG TABLET PO SCH ×2 (08:15→17:11)
[2017-11-01 12:00] VITALS: BP 92/52
[2017-11-01] MEDS: ENOXAPARIN 40MG/0.4ML SYR SUBCUT SCH (12:38)
[2017-11-01 16:00] VITALS: BP 114/78
[2017-11-01 20:00] VITALS: BP 109/79
[2017-11-02] VITALS: BP 114/73
[2017-11-02] MEDS: HALOPERIDOL LACTATE 5MG/ML VIAL IM PRN ×3 (00:46→21:36)
[2017-11-02 04:00] VITALS: BP 112/65
[2017-11-02 08:00] VITALS: BP 125/71
[2017-11-02] MEDS: CARBAMAZEPINE 200MG TABLET PO SCH ×2 (08:05→21:35)
[2017-11-02] MEDS: OLANZAPINE 2.5MG TABLET PO SCH ×2 (08:05→16:58)
[2017-11-02] MEDS: ENOXAPARIN 40MG/0.4ML SYR SUBCUT SCH (11:53)
[2017-11-02 12:00] VITALS: BP 116/72
[2017-11-02 16:05] VITALS: BP 118/67
[2017-11-02 20:00] VITALS: BP 104/81
[2017-11-03] VITALS (7 sets, daily range): BP systolic 102–135; BP diastolic 59–83
[2017-11-03] MEDS: CARBAMAZEPINE 200MG TABLET PO SCH ×2 (09:08→21:10)
[2017-11-03] MEDS: OLANZAPINE 2.5MG TABLET PO SCH ×2 (09:09→16:54)
[2017-11-03] MEDS: HALOPERIDOL LACTATE 5MG/ML VIAL IM PRN ×2 (12:21→22:54)
[2017-11-03] MEDS: ENOXAPARIN 40MG/0.4ML SYR SUBCUT SCH (12:21)
[2017-11-04 04:00] VITALS: BP 117/79
[2017-11-04 08:00] VITALS: BP 93/62
[2017-11-04] MEDS: CARBAMAZEPINE 200MG TABLET PO SCH ×2 (08:16→21:58)
[2017-11-04] MEDS: OLANZAPINE 2.5MG TABLET PO SCH ×2 (08:16→16:34)
[2017-11-04] MEDS: HALOPERIDOL LACTATE 5MG/ML VIAL IM PRN ×2 (08:17→19:40)
[2017-11-04 12:00] VITALS: BP 114/74
[2017-11-04] MEDS: ENOXAPARIN 40MG/0.4ML SYR SUBCUT SCH (12:12)
[2017-11-04 16:00] VITALS: BP 123/79
[2017-11-04 20:00] VITALS: BP 140/87
[2017-11-05 04:00] VITALS: BP 121/79
[2017-11-05 07:42] LABS: CHLORIDE 106 mEq/L (98-107)
[2017-11-05 07:45] LABS: HEMOGLOBIN 12.9 g/dL (14.0-18.0); MEAN CORPUSCULAR HEMOGLOBIN 29.8 pg (28.0-32.0); MEAN CORPUSCULAR VOLUME 88.2 fL (80.0-94.0); PLATELET 271 x1000/uL (130-400); RED BLOOD CELL COUNT 4.31 mill/uL (4.7-6.1)
[2017-11-05 08:00] VITALS: BP 90/62
[2017-11-05] MEDS: CARBAMAZEPINE 200MG TABLET PO SCH ×2 (08:35→20:53)
[2017-11-05] MEDS: OLANZAPINE 2.5MG TABLET PO SCH ×2 (08:35→16:59)
[2017-11-05] MEDS: HALOPERIDOL LACTATE 5MG/ML VIAL IM PRN ×2 (09:08→17:44)
[2017-11-05 11:00] VITALS: BP 126/76
[2017-11-05] MEDS: ENOXAPARIN 40MG/0.4ML SYR SUBCUT SCH (11:51)
[2017-11-05 16:00] VITALS: BP 122/61
[2017-11-05 20:00] VITALS: BP 121/76
[2017-11-06] VITALS: BP 136/72
[2017-11-06] MEDS: HALOPERIDOL LACTATE 5MG/ML VIAL IM PRN ×3 (01:55→16:20)
[2017-11-06 04:00] VITALS: BP 126/71
[2017-11-06 08:00] VITALS: BP 122/80
[2017-11-06] MEDS: OLANZAPINE 2.5MG TABLET PO SCH ×2 (08:18→16:05)
[2017-11-06] MEDS: CARBAMAZEPINE 200MG TABLET PO SCH ×2 (08:18→20:32)
[2017-11-06] MEDS: ENOXAPARIN 40MG/0.4ML SYR SUBCUT SCH (11:35)
[2017-11-06 12:00] VITALS: BP 112/79
[2017-11-06 16:00] VITALS: BP 113/72
[2017-11-06 20:00] VITALS: BP 110/78
[2017-11-07] VITALS: BP 138/90
[2017-11-07] MEDS: HALOPERIDOL LACTATE 5MG/ML VIAL IM PRN ×3 (00:23→19:06)
[2017-11-07 08:00] VITALS: BP 105/74
[2017-11-07] MEDS: CARBAMAZEPINE 200MG TABLET PO SCH (09:17)
[2017-11-07] MEDS: OLANZAPINE 2.5MG TABLET PO SCH ×2 (09:17→19:06)
[2017-11-07] MEDS: ENOXAPARIN 40MG/0.4ML SYR SUBCUT SCH (12:56)
[2017-11-07 20:00] VITALS: BP 134/76
[2017-11-08] VITALS: BP 138/84
[2017-11-08 04:00] VITALS: BP 126/76
[2017-11-08 08:00] VITALS: BP 105/77
[2017-11-08] MEDS: HALOPERIDOL LACTATE 5MG/ML VIAL IM PRN ×2 (08:34→17:09)
[2017-11-08] MEDS: OLANZAPINE 2.5MG TABLET PO SCH ×2 (08:34→17:09)
[2017-11-08 12:00] VITALS: BP 117/60
[2017-11-08] MEDS: CARBAMAZEPINE 200MG TABLET PO SCH ×2 (12:32→23:55)
[2017-11-08] MEDS: ENOXAPARIN 40MG/0.4ML SYR SUBCUT SCH (12:32)
[2017-11-08 16:00] VITALS: BP 118/70
[2017-11-08 20:00] VITALS: BP 121/73
[2017-11-09] VITALS: BP 126/81
[2017-11-09 04:00] VITALS: BP 126/62
[2017-11-09 08:00] VITALS: BP 119/82
[2017-11-09] MEDS: OLANZAPINE 2.5MG TABLET PO SCH ×2 (09:39→17:48)
[2017-11-09] MEDS: HALOPERIDOL LACTATE 5MG/ML VIAL IM PRN ×2 (09:39→17:48)
[2017-11-09] MEDS: CARBAMAZEPINE 200MG TABLET PO SCH ×2 (09:39→22:08)
[2017-11-09 12:00] VITALS: BP 102/64
[2017-11-09] MEDS: ENOXAPARIN 40MG/0.4ML SYR SUBCUT SCH (12:58)
[2017-11-09 16:00] VITALS: BP 115/73
[2017-11-09 20:00] VITALS: BP 113/80
[2017-11-10] VITALS: BP 118/77
[2017-11-10] MEDS: HALOPERIDOL LACTATE 5MG/ML VIAL IM PRN ×3 (02:29→21:56)
[2017-11-10 04:00] VITALS: BP 120/72
[2017-11-10 08:00] VITALS: BP 143/80
[2017-11-10] MEDS: CARBAMAZEPINE 200MG TABLET PO SCH ×2 (08:13→21:56)
[2017-11-10] MEDS: OLANZAPINE 2.5MG TABLET PO SCH ×2 (08:13→18:20)
[2017-11-10 12:00] VITALS: BP 109/62
[2017-11-10] MEDS: ENOXAPARIN 40MG/0.4ML SYR SUBCUT SCH (13:00)
[2017-11-10 16:00] VITALS: BP 135/85
[2017-11-10 20:00] VITALS: BP 123/91
[2017-11-11] VITALS: BP_SYST 121; BP_SYST 128; BP_DIAS 60; BP_DIAS 72
[2017-11-11 04:00] VITALS: BP 110/83
[2017-11-11] MEDS: HALOPERIDOL LACTATE 5MG/ML VIAL IM PRN ×2 (07:48→16:06)
[2017-11-11 08:00] VITALS: BP 130/82
[2017-11-11] MEDS: OLANZAPINE 2.5MG TABLET PO SCH ×2 (08:26→16:06)
[2017-11-11] MEDS: CARBAMAZEPINE 200MG TABLET PO SCH ×2 (08:26→20:29)
[2017-11-11 11:39] VITALS: BP 98/66
[2017-11-11] MEDS: ENOXAPARIN 40MG/0.4ML SYR SUBCUT SCH (12:01)
[2017-11-11 15:31] VITALS: BP 95/64
[2017-11-12] VITALS: BP 125/62
[2017-11-12 08:00] VITALS: BP 113/78
[2017-11-12] MEDS: CARBAMAZEPINE 200MG TABLET PO SCH ×2 (08:06→23:33)
[2017-11-12 11:23] VITALS: BP 110/79
[2017-11-12] MEDS: ENOXAPARIN 40MG/0.4ML SYR SUBCUT SCH (12:16)
[2017-11-12 20:00] VITALS: BP 126/79
[2017-11-13] VITALS: BP 111/88
[2017-11-13 08:00] VITALS: BP 110/68
[2017-11-13] MEDS: CARBAMAZEPINE 200MG TABLET PO SCH ×2 (10:17→22:07)
[2017-11-13] MEDS: HALOPERIDOL LACTATE 5MG/ML VIAL IM PRN (11:45)
[2017-11-13 12:00] VITALS: BP 128/83
[2017-11-13] MEDS: ENOXAPARIN 40MG/0.4ML SYR SUBCUT SCH (12:00)
[2017-11-13 16:00] VITALS: BP 127/79
[2017-11-13 16:03] LABS: HEMATOCRIT 38.3 % (42.0-52.0); HEMOGLOBIN 12.7 g/dL (14.0-18.0); MEAN CORPUSCULAR HEMOGLOBIN 29.7 pg (28.0-32.0); MEAN CORPUSCULAR VOLUME 89.7 fL (80.0-94.0); PLATELET 287 x1000/uL (130-400); RED BLOOD CELL COUNT 4.27 mill/uL (4.7-6.1); RED CELL DISTRIBUTION WIDTH 15.2 % (11.6-14.6)
[2017-11-13 16:20] LABS: CHLORIDE 105 mEq/L (98-107)
[2017-11-14 08:00] VITALS: BP_SYST 118; BP_SYST 148; BP_DIAS 80
[2017-11-14] MEDS: CARBAMAZEPINE 200MG TABLET PO SCH ×2 (10:33→22:27)
[2017-11-14 12:00] VITALS: BP 121/75
[2017-11-14] MEDS: HALOPERIDOL LACTATE 5MG/ML VIAL IM PRN (13:27)
[2017-11-14] MEDS: ENOXAPARIN 40MG/0.4ML SYR SUBCUT SCH (13:29)
[2017-11-14 16:00] VITALS: BP 116/60
[2017-11-14 19:00] VITALS: BP 121/79
[2017-11-15] VITALS: BP 118/77
[2017-11-15 08:00] VITALS: BP 96/60
[2017-11-15] MEDS: CARBAMAZEPINE 200MG TABLET PO SCH ×2 (08:28→20:05)
[2017-11-15] MEDS: HALOPERIDOL LACTATE 5MG/ML VIAL IM PRN ×2 (08:56→20:05)
[2017-11-15] MEDS: ENOXAPARIN 40MG/0.4ML SYR SUBCUT SCH (11:18)
[2017-11-15 12:00] VITALS: BP 120/86
[2017-11-15 16:00] VITALS: BP 105/74
[2017-11-15 20:00] VITALS: BP 117/71
[2017-11-16] VITALS: BP 135/86
[2017-11-16 04:00] VITALS: BP 138/83
[2017-11-16] MEDS: HALOPERIDOL LACTATE 5MG/ML VIAL IM PRN ×3 (06:04→23:25)
[2017-11-16 08:00] VITALS: BP 121/82
[2017-11-16] MEDS: CARBAMAZEPINE 200MG TABLET PO SCH ×2 (08:36→23:25)
[2017-11-16 12:00] VITALS: BP 123/64
[2017-11-16] MEDS: ENOXAPARIN 40MG/0.4ML SYR SUBCUT SCH (13:10)
[2017-11-16 16:00] VITALS: BP 131/87
[2017-11-16 20:00] VITALS: BP 123/78
[2017-11-17] VITALS: BP 111/77
[2017-11-17 04:00] VITALS: BP 109/64
[2017-11-17 08:00] VITALS: BP 121/82
[2017-11-17] MEDS: CARBAMAZEPINE 200MG TABLET PO SCH ×2 (09:22→20:34)
[2017-11-17] MEDS: HALOPERIDOL LACTATE 5MG/ML VIAL IM PRN ×2 (09:22→20:34)
[2017-11-17 12:00] VITALS: BP 140/89
[2017-11-17] MEDS: ENOXAPARIN 40MG/0.4ML SYR SUBCUT SCH (12:19)
[2017-11-17 16:00] VITALS: BP 131/83
[2017-11-17 20:00] VITALS: BP 129/79
[2017-11-18] VITALS: BP 135/77
[2017-11-18 04:00] VITALS: BP 117/70
[2017-11-18 08:00] VITALS: BP 134/74
[2017-11-18] MEDS: HALOPERIDOL LACTATE 5MG/ML VIAL IM PRN ×2 (08:20→18:46)
[2017-11-18] MEDS: CARBAMAZEPINE 200MG TABLET PO SCH ×2 (08:20→21:11)
[2017-11-18 12:00] VITALS: BP 127/82
[2017-11-18] MEDS: ENOXAPARIN 40MG/0.4ML SYR SUBCUT SCH (12:08)
[2017-11-18 16:00] VITALS: BP 128/88
[2017-11-18 20:00] VITALS: BP 129/80
[2017-11-19] VITALS: BP 141/73
[2017-11-19 04:00] VITALS: BP 133/74
[2017-11-19 08:00] VITALS: BP 132/58
[2017-11-19] MEDS: CARBAMAZEPINE 200MG TABLET PO SCH ×2 (09:04→21:16)
[2017-11-19 12:00] VITALS: BP 118/86
[2017-11-19] MEDS: ENOXAPARIN 40MG/0.4ML SYR SUBCUT SCH (13:09)
[2017-11-19 16:00] VITALS: BP 99/59
[2017-11-19 20:00] VITALS: BP 137/78
[2017-11-20] VITALS: BP 112/88
[2017-11-20 04:00] VITALS: BP 123/88
[2017-11-20 08:24] VITALS: BP 130/91
[2017-11-20] MEDS: CARBAMAZEPINE 200MG TABLET PO SCH ×2 (11:09→21:24)
[2017-11-20 12:00] VITALS: BP 137/86
[2017-11-20] MEDS: ENOXAPARIN 40MG/0.4ML SYR SUBCUT SCH (15:08)
[2017-11-20 16:00] VITALS: BP 138/78
[2017-11-20 20:00] VITALS: BP 126/89
[2017-11-21] VITALS: BP 116/73
[2017-11-21 04:00] VITALS: BP 111/62
[2017-11-21 08:00] VITALS: BP 108/75
[2017-11-21] MEDS: CARBAMAZEPINE 200MG TABLET PO SCH ×2 (09:02→23:25)
[2017-11-21 12:00] VITALS: BP 121/78
[2017-11-21] MEDS: ENOXAPARIN 40MG/0.4ML SYR SUBCUT SCH (13:01)
[2017-11-21] MEDS: HALOPERIDOL LACTATE 5MG/ML VIAL IM PRN (14:53)
[2017-11-21 16:00] VITALS: BP 97/61
[2017-11-21 20:00] VITALS: BP 107/61
[2017-11-22] VITALS: BP 126/61
[2017-11-22 04:00] VITALS: BP 111/65
[2017-11-22 08:00] VITALS: BP 119/81
[2017-11-22] MEDS: CARBAMAZEPINE 200MG TABLET PO SCH ×2 (08:39→21:42)
[2017-11-22] MEDS: ENOXAPARIN 40MG/0.4ML SYR SUBCUT SCH (11:34)
[2017-11-22 12:00] VITALS: BP 108/79
[2017-11-22 16:00] VITALS: BP 109/73
[2017-11-22 20:00] VITALS: BP 129/76
[2017-11-23] VITALS: BP_SYST 130; BP_SYST 135; BP_DIAS 72; BP_DIAS 80
[2017-11-23 04:00] VITALS: BP 118/71
[2017-11-23 08:00] VITALS: BP 130/89
[2017-11-23] MEDS: CARBAMAZEPINE 200MG TABLET PO SCH ×2 (08:14→21:07)
[2017-11-23] MEDS: ENOXAPARIN 40MG/0.4ML SYR SUBCUT SCH (11:42)
[2017-11-23 12:00] VITALS: BP 120/82
[2017-11-23] MEDS: HALOPERIDOL LACTATE 5MG/ML VIAL IM PRN (14:19)
[2017-11-23 16:00] VITALS: BP 107/62
[2017-11-23 20:00] VITALS: BP 111/74
[2017-11-24] VITALS: BP 126/79
[2017-11-24 04:00] VITALS: BP 136/75
[2017-11-24 08:00] VITALS: BP 122/84
[2017-11-24] MEDS: CARBAMAZEPINE 200MG TABLET PO SCH ×2 (08:31→20:50)
[2017-11-24 12:00] VITALS: BP 92/60
[2017-11-24] MEDS: ENOXAPARIN 40MG/0.4ML SYR SUBCUT SCH ×2 (12:00→12:34)
[2017-11-24] MEDS: HALOPERIDOL LACTATE 5MG/ML VIAL IM PRN (12:50)
[2017-11-24 16:00] VITALS: BP 104/76
[2017-11-24 20:00] VITALS: BP 124/76
[2017-11-25] VITALS: BP 116/82
[2017-11-25 04:00] VITALS: BP 132/72
[2017-11-25] MEDS: HALOPERIDOL LACTATE 5MG/ML VIAL IM PRN ×2 (04:40→12:31)
[2017-11-25] MEDS: CARBAMAZEPINE 200MG TABLET PO SCH ×2 (08:42→22:22)
[2017-11-25 12:00] VITALS: BP 116/88
[2017-11-25] MEDS: ENOXAPARIN 40MG/0.4ML SYR SUBCUT SCH (13:06)
[2017-11-25 16:49] VITALS: BP 114/95
[2017-11-25 20:21] VITALS: BP 126/84
[2017-11-26] VITALS: BP 107/67
[2017-11-26 04:00] VITALS: BP 121/71
[2017-11-26 08:00] VITALS: BP 124/88
[2017-11-26] MEDS: CARBAMAZEPINE 200MG TABLET PO SCH ×2 (09:36→22:18)
[2017-11-26] MEDS: HALOPERIDOL LACTATE 5MG/ML VIAL IM PRN (09:55)
[2017-11-26 12:00] VITALS: BP 134/89
[2017-11-26] MEDS: ENOXAPARIN 40MG/0.4ML SYR SUBCUT SCH (13:22)
[2017-11-26 16:00] VITALS: BP 119/63
[2017-11-26 20:00] VITALS: BP 129/85
[2017-11-27] VITALS: BP 129/77
[2017-11-27 04:00] VITALS: BP_SYST 118; BP_SYST 130; BP_DIAS 71; BP_DIAS 80
[2017-11-27 06:39] LABS: BASOPHILS % 1.1 % (0.0-2.0); EOSINOPHILS % 1.4 % (0.0-5.0); HEMATOCRIT. 37.9 % (42.0-52.0); HEMOGLOBIN. 12.9 g/dL (14.0-18.0); LYMPHOCYTES % 33.6 % (20.0-50.0); MEAN CORPUSCULAR HEMOGLOBIN 30.2 pg (28.0-32.0); MEAN CORPUSCULAR VOLUME 88.7 fL (80.0-94.0); MEAN PLATELET VOLUME 7.5 fl (7.4-10.4); MONOCYTES % 8.7 % (2.0-8.0); NEUTROPHILS % 55.2 % (40.0-76.0); PLATELET 331 x1000/uL (130-400); RED BLOOD CELL COUNT 4.28 mill/uL (4.7-6.1); RED CELL DISTRIBUTION WIDTH 15.6 % (11.6-14.6)
[2017-11-27 07:13] LABS: CHLORIDE 103 mEq/L (98-107)
[2017-11-27 08:23] VITALS: BP 121/67
[2017-11-27] MEDS: CARBAMAZEPINE 200MG TABLET PO SCH ×2 (09:42→22:12)
[2017-11-27] MEDS: HALOPERIDOL LACTATE 5MG/ML VIAL IM PRN ×2 (09:42→18:00)
[2017-11-27 12:00] VITALS: BP 123/79
[2017-11-27] MEDS: ENOXAPARIN 40MG/0.4ML SYR SUBCUT SCH (13:21)
[2017-11-27 16:00] VITALS: BP 130/76
[2017-11-27 20:00] VITALS: BP 115/77
[2017-11-28 04:00] VITALS: BP 128/69
[2017-11-28 06:39] VITALS: BP 120/80
[2017-11-28 08:00] VITALS: BP 118/78
[2017-11-28] MEDS: CARBAMAZEPINE 200MG TABLET PO SCH ×2 (08:35→20:25)
[2017-11-28] MEDS: HALOPERIDOL LACTATE 5MG/ML VIAL IM PRN ×2 (10:11→19:00)
[2017-11-28 12:00] VITALS: BP 117/82
[2017-11-28] MEDS: ENOXAPARIN 40MG/0.4ML SYR SUBCUT SCH (12:37)
[2017-11-28 16:00] VITALS: BP 128/89
[2017-11-28 20:00] VITALS: BP 116/72
[2017-11-29] VITALS: BP 121/68
[2017-11-29 04:00] VITALS: BP 126/76
[2017-11-29 08:00] VITALS: BP 129/83
[2017-11-29] MEDS: CARBAMAZEPINE 200MG TABLET PO SCH ×2 (08:00→20:14)
[2017-11-29] MEDS: HALOPERIDOL LACTATE 5MG/ML VIAL IM PRN ×2 (08:00→20:13)
[2017-11-29] MEDS: ENOXAPARIN 40MG/0.4ML SYR SUBCUT SCH (11:21)
[2017-11-29 12:00] VITALS: BP 127/81
[2017-11-29 16:00] VITALS: BP 102/70
[2017-11-29 20:00] VITALS: BP 134/72
[2017-11-30] VITALS: BP 126/62
[2017-11-30 04:00] VITALS: BP 118/74
[2017-11-30 08:00] VITALS: BP 95/69
[2017-11-30] MEDS: CARBAMAZEPINE 200MG TABLET PO SCH ×2 (08:22→20:45)
[2017-11-30] MEDS: ENOXAPARIN 40MG/0.4ML SYR SUBCUT SCH (11:55)
[2017-11-30 12:00] VITALS: BP 99/60
[2017-11-30] MEDS: HALOPERIDOL LACTATE 5MG/ML VIAL IM PRN (19:31)
[2017-11-30 20:00] VITALS: BP 104/70
[2017-12-01] VITALS: BP 111/68
[2017-12-01 04:00] VITALS: BP 119/85
[2017-12-01] MEDS: HALOPERIDOL LACTATE 5MG/ML VIAL IM PRN ×2 (04:23→13:28)
[2017-12-01 08:00] VITALS: BP 94/50
[2017-12-01] MEDS: CARBAMAZEPINE 200MG TABLET PO SCH ×2 (10:46→21:39)
[2017-12-01 12:00] VITALS: BP 97/74
[2017-12-01] MEDS: ENOXAPARIN 40MG/0.4ML SYR SUBCUT SCH (13:28)
[2017-12-01 16:00] VITALS: BP 92/65
[2017-12-01 20:00] VITALS: BP 104/62
[2017-12-02] VITALS: BP 112/66
[2017-12-02 04:00] VITALS: BP 98/64
[2017-12-02 08:00] VITALS: BP 133/89
[2017-12-02] MEDS: HALOPERIDOL LACTATE 5MG/ML VIAL IM PRN ×2 (09:34→17:02)
[2017-12-02] MEDS: CARBAMAZEPINE 200MG TABLET PO SCH ×2 (09:34→20:46)
[2017-12-02 12:00] VITALS: BP 97/59
[2017-12-02] MEDS: ENOXAPARIN 40MG/0.4ML SYR SUBCUT SCH (12:55)
[2017-12-02 16:00] VITALS: BP 116/68
[2017-12-02 20:00] VITALS: BP 123/80
[2017-12-03] VITALS: BP 118/72
[2017-12-03 04:00] VITALS: BP 130/72
[2017-12-03 08:00] VITALS: BP 133/89
[2017-12-03] MEDS: CARBAMAZEPINE 200MG TABLET PO SCH ×2 (08:36→20:17)
[2017-12-03 12:00] VITALS: BP 103/78
[2017-12-03] MEDS: ENOXAPARIN 40MG/0.4ML SYR SUBCUT SCH (12:02)
[2017-12-03 16:00] VITALS: BP 109/69
[2017-12-03 20:00] VITALS: BP 116/74
[2017-12-03] MEDS: HALOPERIDOL LACTATE 5MG/ML VIAL IM PRN (20:17)
[2017-12-04] VITALS: BP 136/76
[2017-12-04 04:00] VITALS: BP 118/76
[2017-12-04] MEDS: HALOPERIDOL LACTATE 5MG/ML VIAL IM PRN ×2 (07:31→16:56)
[2017-12-04 08:00] VITALS: BP 121/83
[2017-12-04 12:00] VITALS: BP 122/79
[2017-12-04] MEDS: ENOXAPARIN 40MG/0.4ML SYR SUBCUT SCH (12:35)
[2017-12-04] MEDS: CARBAMAZEPINE 200MG TABLET PO SCH ×2 (12:36→21:53)
[2017-12-04 16:00] VITALS: BP 118/77
[2017-12-04 20:00] VITALS: BP 117/75
[2017-12-05] VITALS: BP 113/76
[2017-12-05 04:00] VITALS: BP 131/93
[2017-12-05 08:00] VITALS: BP 118/79
[2017-12-05] MEDS: CARBAMAZEPINE 200MG TABLET PO SCH ×2 (10:02→21:20)
[2017-12-05] MEDS: HALOPERIDOL LACTATE 5MG/ML VIAL IM PRN ×2 (10:02→18:59)
[2017-12-05 12:00] VITALS: BP 111/72
[2017-12-05] MEDS: ENOXAPARIN 40MG/0.4ML SYR SUBCUT SCH (12:43)
[2017-12-05 16:00] VITALS: BP 128/90
[2017-12-05 20:00] VITALS: BP 128/62
[2017-12-06] VITALS: BP 131/78
[2017-12-06 04:00] VITALS: BP 116/65
[2017-12-06 08:00] VITALS: BP 110/62
[2017-12-06 08:10] LABS: BASOPHILS % 1.2 % (0.0-2.0); EOSINOPHILS % 2.4 % (0.0-5.0); HEMATOCRIT. 39.3 % (42.0-52.0); HEMOGLOBIN. 13.2 g/dL (14.0-18.0); MEAN CORPUSCULAR HEMOGLOBIN 30.6 pg (28.0-32.0); MEAN CORPUSCULAR VOLUME 90.8 fL (80.0-94.0); MEAN PLATELET VOLUME 7.5 fl (7.4-10.4); MONOCYTES % 10.1 % (2.0-8.0); NEUTROPHILS % 51.3 % (40.0-76.0); PLATELET 266 x1000/uL (130-400); RED BLOOD CELL COUNT 4.33 mill/uL (4.7-6.1); RED CELL DISTRIBUTION WIDTH 16.4 % (11.6-14.6)
[2017-12-06] MEDS: CARBAMAZEPINE 200MG TABLET PO SCH (08:47)
[2017-12-06] MEDS: HALOPERIDOL LACTATE 5MG/ML VIAL IM PRN (10:56)
[2017-12-06 11:26] LABS: CHLORIDE 105 mEq/L (98-107)
[2017-12-06] MEDS: ENOXAPARIN 40MG/0.4ML SYR SUBCUT SCH (12:00)
[2017-12-06 16:00] VITALS: BP 91/57
[2017-12-06 20:00] VITALS: BP 136/75
[2017-12-07] VITALS: BP 130/72
[2017-12-07 04:00] VITALS: BP 118/78
[2017-12-07 08:00] VITALS: BP 129/85
[2017-12-07 12:00] VITALS: BP 99/64
[2017-12-07] MEDS: ENOXAPARIN 40MG/0.4ML SYR SUBCUT SCH (12:10)
[2017-12-07 16:00] VITALS: BP 114/75
[2017-12-07 20:00] VITALS: BP 129/77
[2017-12-08] VITALS: BP 117/70
[2017-12-08 04:00] VITALS: BP 125/80
[2017-12-08 08:00] VITALS: BP 104/71
[2017-12-08] MEDS: CARBAMAZEPINE 200MG TABLET PO SCH ×2 (10:39→21:08)
[2017-12-08 12:00] VITALS: BP 107/71
[2017-12-08] MEDS: ENOXAPARIN 40MG/0.4ML SYR SUBCUT SCH (12:16)
[2017-12-08 16:00] VITALS: BP 99/60
[2017-12-08 20:00] VITALS: BP_SYST 121
[2017-12-09] VITALS: BP 137/91
[2017-12-09 04:00] VITALS: BP 121/67
[2017-12-09 08:00] VITALS: BP 120/73
[2017-12-09] MEDS: CARBAMAZEPINE 200MG TABLET PO SCH ×2 (08:02→21:39)
[2017-12-09] MEDS: HALOPERIDOL LACTATE 5MG/ML VIAL IM PRN ×2 (08:02→22:02)
[2017-12-09 12:00] VITALS: BP 122/79
[2017-12-09] MEDS: ENOXAPARIN 40MG/0.4ML SYR SUBCUT SCH (12:08)
[2017-12-09 16:00] VITALS: BP 119/72
[2017-12-09 20:00] VITALS: BP 121/80
[2017-12-10] VITALS: BP 128/76
[2017-12-10 04:00] VITALS: BP 121/72
[2017-12-10 08:00] VITALS: BP 106/61
[2017-12-10] MEDS: CARBAMAZEPINE 200MG TABLET PO SCH ×2 (09:33→20:30)
[2017-12-10 12:00] VITALS: BP 110/69
[2017-12-10] MEDS: ENOXAPARIN 40MG/0.4ML SYR SUBCUT SCH (12:21)
[2017-12-10 16:00] VITALS: BP 115/75
[2017-12-10] MEDS: HALOPERIDOL LACTATE 5MG/ML VIAL IM PRN ×2 (16:11→21:59)
[2017-12-10 20:00] VITALS: BP 129/80
[2017-12-11] VITALS: BP 125/77
[2017-12-11 04:00] VITALS: BP 117/80
[2017-12-11] MEDS: HALOPERIDOL LACTATE 5MG/ML VIAL IM PRN (05:01)
[2017-12-11 08:00] VITALS: BP 125/98
[2017-12-11] MEDS: CARBAMAZEPINE 200MG TABLET PO SCH ×2 (09:54→20:45)
[2017-12-11 12:00] VITALS: BP 110/90
[2017-12-11 16:00] VITALS: BP 113/79
[2017-12-11 20:00] VITALS: BP 119/74
[2017-12-12] VITALS: BP 132/80
[2017-12-12 04:00] VITALS: BP 129/70
[2017-12-12 08:00] VITALS: BP 122/86
[2017-12-12] MEDS: CARBAMAZEPINE 200MG TABLET PO SCH ×2 (08:46→21:30)
[2017-12-12 12:00] VITALS: BP 122/71
[2017-12-12 16:00] VITALS: BP 104/71
[2017-12-13 08:00] VITALS: BP 115/82
[2017-12-13] MEDS: CARBAMAZEPINE 200MG TABLET PO SCH ×2 (08:15→20:46)
[2017-12-13 12:00] VITALS: BP 115/85
[2017-12-13 16:00] VITALS: BP 106/74
[2017-12-13 20:00] VITALS: BP 106/76
[2017-12-13] MEDS: HALOPERIDOL LACTATE 5MG/ML VIAL IM PRN (20:47)
[2017-12-14] VITALS: BP 118/68
[2017-12-14 04:00] VITALS: BP 127/78
[2017-12-14] MEDS: CARBAMAZEPINE 200MG TABLET PO SCH ×2 (08:01→22:27)
[2017-12-14 16:00] VITALS: BP 112/84
[2017-12-14 20:00] VITALS: BP 114/84
[2017-12-14] MEDS: HALOPERIDOL LACTATE 5MG/ML VIAL IM PRN (22:27)
[2017-12-15] VITALS: BP 117/82
[2017-12-15 04:00] VITALS: BP 136/94
[2017-12-15 08:00] VITALS: BP 115/85
[2017-12-15] MEDS: CARBAMAZEPINE 200MG TABLET PO SCH ×2 (10:36→20:41)
[2017-12-15 12:00] VITALS: BP 104/61
[2017-12-15 16:00] VITALS: BP 110/72
[2017-12-15 20:00] VITALS: BP 120/76
[2017-12-15] MEDS: HALOPERIDOL LACTATE 5MG/ML VIAL IM PRN (20:41)
[2017-12-16] VITALS: BP 122/75
[2017-12-16 04:00] VITALS: BP 122/74
[2017-12-16 08:00] VITALS: BP 106/80
[2017-12-16] MEDS: CARBAMAZEPINE 200MG TABLET PO SCH ×2 (10:14→22:05)
[2017-12-16 12:00] VITALS: BP 112/74
[2017-12-16 16:00] VITALS: BP 103/67
[2017-12-16 20:00] VITALS: BP 131/79
[2017-12-17] VITALS: BP 111/72
[2017-12-17 04:00] VITALS: BP 123/72
[2017-12-17 08:00] VITALS: BP 127/73
[2017-12-17] MEDS: CARBAMAZEPINE 200MG TABLET PO SCH ×2 (08:25→20:32)
[2017-12-17] MEDS: HALOPERIDOL LACTATE 5MG/ML VIAL IM PRN ×2 (11:06→19:34)
[2017-12-17 12:00] VITALS: BP 109/72
[2017-12-17 16:00] VITALS: BP 116/76
[2017-12-17 20:00] VITALS: BP 118/87
[2017-12-18] VITALS: BP 117/80
[2017-12-18 04:00] VITALS: BP 121/85
[2017-12-18 08:00] VITALS: BP 128/89
[2017-12-18] MEDS: CARBAMAZEPINE 200MG TABLET PO SCH ×2 (09:06→23:32)
[2017-12-18] MEDS: HALOPERIDOL LACTATE 5MG/ML VIAL IM PRN ×2 (10:29→23:37)
[2017-12-18 12:00] VITALS: BP 103/74
[2017-12-18 16:00] VITALS: BP 111/78
[2017-12-18 20:00] VITALS: BP 105/65
[2017-12-19] VITALS: BP 110/77
[2017-12-19 04:00] VITALS: BP 125/81
[2017-12-19 08:00] VITALS: BP 125/84
[2017-12-19 12:00] VITALS: BP 105/68
[2017-12-19] MEDS: HALOPERIDOL LACTATE 5MG/ML VIAL IM PRN ×2 (12:12→22:06)
[2017-12-19] MEDS: CARBAMAZEPINE 200MG TABLET PO SCH ×2 (12:13→22:06)
[2017-12-19 16:00] VITALS: BP 110/73
[2017-12-19 20:00] VITALS: BP 112/81
[2017-12-20] VITALS: BP 107/72
[2017-12-20 04:00] VITALS: BP 100/69
[2017-12-20 08:00] VITALS: BP 129/85
[2017-12-20] MEDS: CARBAMAZEPINE 200MG TABLET PO SCH ×2 (09:05→21:39)
[2017-12-20] MEDS: HALOPERIDOL LACTATE 5MG/ML VIAL IM PRN ×2 (09:06→16:11)
[2017-12-20 12:00] VITALS: BP 110/66
[2017-12-20 16:00] VITALS: BP 112/76
[2017-12-20 20:00] VITALS: BP 102/63
[2017-12-21] VITALS: BP 145/109
[2017-12-21 04:00] VITALS: BP 119/85
[2017-12-21 08:00] VITALS: BP 138/86
[2017-12-21] MEDS: CARBAMAZEPINE 200MG TABLET PO SCH ×2 (08:09→21:46)
[2017-12-21 12:00] VITALS: BP 119/69
[2017-12-21 16:00] VITALS: BP 120/79
[2017-12-21 20:00] VITALS: BP 103/76
[2017-12-22] VITALS: BP 117/88
[2017-12-22 04:00] VITALS: BP 131/80
[2017-12-22 08:00] VITALS: BP 130/65
[2017-12-22] MEDS: CARBAMAZEPINE 200MG TABLET PO SCH ×2 (08:18→20:25)
[2017-12-22 12:00] VITALS: BP 111/80
[2017-12-22] MEDS: HALOPERIDOL LACTATE 5MG/ML VIAL IM PRN ×2 (13:42→20:24)
[2017-12-22 16:00] VITALS: BP 108/72
[2017-12-23] VITALS: BP 126/74
[2017-12-23 05:10] VITALS: BP 118/87
[2017-12-23 08:00] VITALS: BP 138/84
[2017-12-23] MEDS: CARBAMAZEPINE 200MG TABLET PO SCH ×2 (09:08→21:27)
[2017-12-23 12:00] VITALS: BP 123/74
[2017-12-23] MEDS: HALOPERIDOL LACTATE 5MG/ML VIAL IM PRN ×2 (15:45→22:20)
[2017-12-23 16:00] VITALS: BP 116/77
[2017-12-23 20:00] VITALS: BP 121/79
[2017-12-24] VITALS: BP 113/76
[2017-12-24 04:00] VITALS: BP 138/84
[2017-12-24 08:00] VITALS: BP 121/89
[2017-12-24] MEDS: CARBAMAZEPINE 200MG TABLET PO SCH ×2 (08:37→22:32)
[2017-12-24 12:20] VITALS: BP 132/85
[2017-12-24 16:00] VITALS: BP 125/58
[2017-12-24 20:00] VITALS: BP 128/79
[2017-12-25] VITALS: BP 131/79
[2017-12-25 04:00] VITALS: BP 125/70
[2017-12-25 08:00] VITALS: BP 124/92
[2017-12-25] MEDS: CARBAMAZEPINE 200MG TABLET PO SCH ×2 (09:06→21:41)
[2017-12-25 12:00] VITALS: BP 108/80
[2017-12-25] MEDS: HALOPERIDOL LACTATE 5MG/ML VIAL IM PRN (14:43)
[2017-12-25 16:00] VITALS: BP 105/76
[2017-12-25 20:00] VITALS: BP 126/72
[2017-12-26] VITALS: BP 131/73
[2017-12-26 04:00] VITALS: BP 118/62
[2017-12-26 08:00] VITALS: BP 119/81
[2017-12-26] MEDS: CARBAMAZEPINE 200MG TABLET PO SCH ×2 (08:01→21:36)
[2017-12-26 12:00] VITALS: BP 108/67
[2017-12-26] MEDS: HALOPERIDOL LACTATE 5MG/ML VIAL IM PRN ×2 (15:42→21:51)
[2017-12-26 16:00] VITALS: BP 99/64
[2017-12-26 20:00] VITALS: BP 118/72
[2017-12-27] VITALS: BP 126/68
[2017-12-27 04:00] VITALS: BP 120/68
[2017-12-27] MEDS: HALOPERIDOL LACTATE 5MG/ML VIAL IM PRN ×3 (06:30→22:20)
[2017-12-27 08:00] VITALS: BP 112/73
[2017-12-27] MEDS: CARBAMAZEPINE 200MG TABLET PO SCH ×2 (08:20→22:23)
[2017-12-27 11:32] VITALS: BP 131/82
[2017-12-27 16:00] VITALS: BP 117/57
[2017-12-27 20:00] VITALS: BP 130/67
[2017-12-28] VITALS: BP 121/55
[2017-12-28 04:00] VITALS: BP 148/58
[2017-12-28 08:00] VITALS: BP 132/86
[2017-12-28] MEDS: CARBAMAZEPINE 200MG TABLET PO SCH ×2 (09:00→23:05)
[2017-12-28 12:00] VITALS: BP 102/73
[2017-12-28 16:00] VITALS: BP 120/84
[2017-12-28 20:00] VITALS: BP 121/81
[2017-12-29] VITALS: BP 128/88
[2017-12-29 04:00] VITALS: BP 108/82
[2017-12-29] MEDS: HALOPERIDOL LACTATE 5MG/ML VIAL IM PRN ×2 (06:00→13:20)
[2017-12-29 08:00] VITALS: BP 123/89
[2017-12-29] MEDS: CARBAMAZEPINE 200MG TABLET PO SCH ×2 (10:11→21:14)
[2017-12-29 12:00] VITALS: BP 106/68
[2017-12-29 16:00] VITALS: BP 101/72
[2017-12-29 20:00] VITALS: BP 129/78
[2017-12-30] VITALS: BP_SYST 110; BP_SYST 117; BP_DIAS 49; BP_DIAS 70
[2017-12-30 04:00] VITALS: BP 128/69
[2017-12-30] MEDS: CARBAMAZEPINE 200MG TABLET PO SCH ×2 (08:06→22:00)
[2017-12-30] MEDS: HALOPERIDOL LACTATE 5MG/ML VIAL IM PRN ×3 (08:07→22:00)
[2017-12-30 12:00] VITALS: BP 102/66
[2017-12-30 15:42] LABS: BASOPHILS % 1.4 % (0.0-2.0); EOSINOPHILS % 2.5 % (0.0-5.0); HEMATOCRIT. 36.6 % (42.0-52.0); HEMOGLOBIN. 12.4 g/dL (14.0-18.0); MEAN CORPUSCULAR HEMOGLOBIN 31.1 pg (28.0-32.0); MEAN PLATELET VOLUME 7.7 fl (7.4-10.4); MONOCYTES % 11.3 % (2.0-8.0); NEUTROPHILS % 53.8 % (40.0-76.0); PLATELET 247 x1000/uL (130-400); RED BLOOD CELL COUNT 3.98 mill/uL (4.7-6.1)
[2017-12-30 16:25] LABS: CHLORIDE 107 mEq/L (98-107)
[2017-12-30 20:00] VITALS: BP 119/51
[2017-12-31] VITALS: BP 110/47
[2017-12-31 04:00] VITALS: BP 120/58
[2017-12-31] MEDS: HALOPERIDOL LACTATE 5MG/ML VIAL IM PRN ×2 (06:43→20:41)
[2017-12-31 08:00] VITALS: BP 136/88
[2017-12-31] MEDS: CARBAMAZEPINE 200MG TABLET PO SCH ×2 (09:13→20:41)
[2017-12-31 12:00] VITALS: BP 107/67
[2017-12-31 16:00] VITALS: BP 106/81
[2017-12-31 20:00] VITALS: BP 128/72
[2018-01-01] VITALS: BP 118/76
[2018-01-01 04:00] VITALS: BP 127/72
[2018-01-01] MEDS: HALOPERIDOL LACTATE 5MG/ML VIAL IM PRN ×3 (07:59→21:49)
[2018-01-01 08:00] VITALS: BP 120/76
[2018-01-01] MEDS: CARBAMAZEPINE 200MG TABLET PO SCH ×2 (08:01→21:49)
[2018-01-01 12:28] VITALS: BP 97/69
[2018-01-01 16:09] VITALS: BP 100/59
[2018-01-01 20:00] VITALS: BP 128/72
[2018-01-02] VITALS: BP 110/68
[2018-01-02 04:00] VITALS: BP 121/76
[2018-01-02] MEDS: HALOPERIDOL LACTATE 5MG/ML VIAL IM PRN ×3 (07:57→23:18)
[2018-01-02 08:00] VITALS: BP 103/68
[2018-01-02] MEDS: CARBAMAZEPINE 200MG TABLET PO SCH ×2 (08:14→23:16)
[2018-01-02 12:00] VITALS: BP 117/79
[2018-01-02] MEDS: DIVALPROEX SODIUM 250MG DR TABLET PO SCH ×2 (12:54→23:16)
[2018-01-02 16:00] VITALS: BP 105/72
[2018-01-02 20:00] VITALS: BP 102/66
[2018-01-03] VITALS: BP 120/77
[2018-01-03 04:00] VITALS: BP 126/88
[2018-01-03] MEDS: HALOPERIDOL LACTATE 5MG/ML VIAL IM PRN ×2 (07:25→18:04)
[2018-01-03 08:00] VITALS: BP 120/71
[2018-01-03] MEDS: CARBAMAZEPINE 200MG TABLET PO SCH ×2 (08:56→22:05)
[2018-01-03] MEDS: DIVALPROEX SODIUM 250MG DR TABLET PO SCH ×2 (08:56→22:05)
[2018-01-03 12:00] VITALS: BP 106/68
[2018-01-03 16:00] VITALS: BP 112/73
[2018-01-03 20:00] VITALS: BP 103/79
[2018-01-04] VITALS: BP 138/54
[2018-01-04] MEDS: HALOPERIDOL LACTATE 5MG/ML VIAL IM PRN ×3 (02:07→14:59)
[2018-01-04 04:00] VITALS: BP 134/59
[2018-01-04 08:00] VITALS: BP 101/69
[2018-01-04] MEDS: DIVALPROEX SODIUM 250MG DR TABLET PO SCH (08:44)
[2018-01-04] MEDS: CARBAMAZEPINE 200MG TABLET PO SCH ×2 (08:44→21:27)
[2018-01-04 12:00] VITALS: BP 122/79
[2018-01-04 16:00] VITALS: BP 101/60
[2018-01-04 20:00] VITALS: BP 117/74
[2018-01-04] MEDS: DIVALPROEX SODIUM 500MG DR TABLET PO SCH (21:27)
[2018-01-05] VITALS: BP 125/69
[2018-01-05 04:00] VITALS: BP 130/77
[2018-01-05] MEDS: HALOPERIDOL LACTATE 5MG/ML VIAL IM PRN ×2 (06:18→20:38)
[2018-01-05 08:00] VITALS: BP 129/73
[2018-01-05] MEDS: DIVALPROEX SODIUM 500MG DR TABLET PO SCH ×2 (08:17→20:38)
[2018-01-05] MEDS: CARBAMAZEPINE 200MG TABLET PO SCH (08:17)
[2018-01-05 12:00] VITALS: BP 118/73
[2018-01-05 16:00] VITALS: BP 107/69
[2018-01-05 20:00] VITALS: BP 143/59
[2018-01-06] VITALS: BP 135/74
[2018-01-06 04:00] VITALS: BP 138/63
[2018-01-06] MEDS: HALOPERIDOL LACTATE 5MG/ML VIAL IM PRN ×2 (05:16→15:10)
[2018-01-06 08:00] VITALS: BP 107/69
[2018-01-06] MEDS: DIVALPROEX SODIUM 500MG DR TABLET PO SCH ×2 (11:47→22:07)
[2018-01-06 12:00] VITALS: BP 104/73
[2018-01-06 16:00] VITALS: BP 101/71
[2018-01-06 20:00] VITALS: BP 110/76
[2018-01-07] VITALS: BP 128/76
[2018-01-07 04:00] VITALS: BP 116/74
[2018-01-07 08:00] VITALS: BP 123/80
[2018-01-07] MEDS: DIVALPROEX SODIUM 500MG DR TABLET PO SCH ×2 (09:29→21:21)
[2018-01-07 12:00] VITALS: BP 123/74
[2018-01-07 16:00] VITALS: BP 129/76
[2018-01-07 20:00] VITALS: BP 117/80
[2018-01-08] VITALS: BP 111/66
[2018-01-08 04:00] VITALS: BP 123/71
[2018-01-08] MEDS: HALOPERIDOL LACTATE 5MG/ML VIAL IM PRN ×2 (07:32→18:39)
[2018-01-08 08:00] VITALS: BP 131/100
[2018-01-08] MEDS: DIVALPROEX SODIUM 500MG DR TABLET PO SCH ×2 (08:36→22:28)
[2018-01-08 12:00] VITALS: BP 111/76
[2018-01-08 16:00] VITALS: BP 120/80
[2018-01-08 20:00] VITALS: BP 118/77
[2018-01-09] VITALS: BP 120/71
[2018-01-09 04:00] VITALS: BP 120/69
[2018-01-09] MEDS: HALOPERIDOL LACTATE 5MG/ML VIAL IM PRN ×2 (06:58→17:19)
[2018-01-09 08:00] VITALS: BP 111/69
[2018-01-09] MEDS: DIVALPROEX SODIUM 500MG DR TABLET PO SCH ×2 (09:00→20:58)
[2018-01-09 12:00] VITALS: BP 92/56
[2018-01-09 16:00] VITALS: BP 104/74
[2018-01-09 20:00] VITALS: BP 120/64
[2018-01-10 01:00] VITALS: BP 143/51
[2018-01-10] MEDS: HALOPERIDOL LACTATE 5MG/ML VIAL IM PRN ×2 (07:07→20:32)
[2018-01-10 08:00] VITALS: BP 106/78
[2018-01-10] MEDS: DIVALPROEX SODIUM 500MG DR TABLET PO SCH ×2 (08:12→20:32)
[2018-01-10 12:00] VITALS: BP 115/66
[2018-01-10 16:00] VITALS: BP 113/85
[2018-01-10 20:00] VITALS: BP 113/78
[2018-01-11] VITALS: BP 127/90
[2018-01-11 04:00] VITALS: BP 128/87
[2018-01-11] MEDS: HALOPERIDOL LACTATE 5MG/ML VIAL IM PRN ×3 (06:45→22:22)
[2018-01-11 08:00] VITALS: BP 124/92
[2018-01-11] MEDS: DIVALPROEX SODIUM 500MG DR TABLET PO SCH ×2 (09:29→22:22)
[2018-01-11 12:00] VITALS: BP 125/74
[2018-01-11 16:00] VITALS: BP 128/83
[2018-01-11 20:00] VITALS: BP 117/56
[2018-01-12] VITALS: BP 124/59
[2018-01-12 04:00] VITALS: BP 118/55
[2018-01-12] MEDS: HALOPERIDOL LACTATE 5MG/ML VIAL IM PRN (07:09)
[2018-01-12 08:00] VITALS: BP 107/74
[2018-01-12] MEDS: DIVALPROEX SODIUM 500MG DR TABLET PO SCH ×2 (09:05→21:55)
[2018-01-12 12:00] VITALS: BP 131/92
[2018-01-12 16:00] VITALS: BP 130/88
[2018-01-12 20:00] VITALS: BP 136/74
[2018-01-13] VITALS: BP_SYST 111; BP_SYST 129; BP_DIAS 69; BP_DIAS 71
[2018-01-13 04:00] VITALS: BP 117/70
[2018-01-13 08:00] VITALS: BP 109/67
[2018-01-13] MEDS: DIVALPROEX SODIUM 500MG DR TABLET PO SCH ×2 (08:34→21:31)
[2018-01-13] MEDS: HALOPERIDOL LACTATE 5MG/ML VIAL IM PRN (11:11)
[2018-01-13 12:00] VITALS: BP 106/69
[2018-01-13 16:00] VITALS: BP 93/68
[2018-01-13 20:00] VITALS: BP 124/82
[2018-01-14] VITALS: BP 122/75
[2018-01-14 04:00] VITALS: BP 119/77
[2018-01-14 08:00] VITALS: BP 116/79
[2018-01-14] MEDS: DIVALPROEX SODIUM 500MG DR TABLET PO SCH ×2 (08:28→20:51)
[2018-01-14 12:00] VITALS: BP 113/71
[2018-01-14 16:00] VITALS: BP 115/75
[2018-01-14 20:00] VITALS: BP 126/70
[2018-01-15] VITALS: BP 132/78
[2018-01-15 04:00] VITALS: BP 139/86
[2018-01-15 08:00] VITALS: BP 94/55
[2018-01-15] MEDS: DIVALPROEX SODIUM 500MG DR TABLET PO SCH ×2 (09:02→21:30)
[2018-01-15 12:00] VITALS: BP 100/60
[2018-01-15 16:00] VITALS: BP 114/84
[2018-01-15 20:00] VITALS: BP 121/85
[2018-01-15] MEDS: HALOPERIDOL LACTATE 5MG/ML VIAL IM PRN (21:08)
[2018-01-16] VITALS: BP 121/72
[2018-01-16 04:00] VITALS: BP 118/66
[2018-01-16 08:00] VITALS: BP 126/70
[2018-01-16] MEDS: DIVALPROEX SODIUM 500MG DR TABLET PO SCH ×2 (08:12→21:54)
[2018-01-16 12:00] VITALS: BP 115/85
[2018-01-16] MEDS: HALOPERIDOL LACTATE 5MG/ML VIAL IM PRN ×2 (15:41→21:54)
[2018-01-16 16:00] VITALS: BP 120/81
[2018-01-16 20:00] VITALS: BP 143/51
[2018-01-17] VITALS: BP 136/54
[2018-01-17 04:00] VITALS: BP 142/51
[2018-01-17 08:00] VITALS: BP 117/81
[2018-01-17] MEDS: HALOPERIDOL LACTATE 5MG/ML VIAL IM PRN ×2 (09:16→21:44)
[2018-01-17] MEDS: DIVALPROEX SODIUM 500MG DR TABLET PO SCH ×2 (09:26→21:44)
[2018-01-17 12:00] VITALS: BP 122/85
[2018-01-17 16:00] VITALS: BP 147/63
[2018-01-17 20:00] VITALS: BP 84/39
[2018-01-18] VITALS: BP 117/36
[2018-01-18 04:00] VITALS: BP 123/85
[2018-01-18] MEDS: HALOPERIDOL LACTATE 5MG/ML VIAL IM PRN ×2 (06:44→21:59)
[2018-01-18 08:00] VITALS: BP 118/87
[2018-01-18] MEDS: DIVALPROEX SODIUM 500MG DR TABLET PO SCH ×2 (08:45→21:59)
[2018-01-18 12:00] VITALS: BP 118/88
[2018-01-18 16:00] VITALS: BP 124/79
[2018-01-18 20:00] VITALS: BP 114/85
[2018-01-19 04:00] VITALS: BP 116/79
[2018-01-19 04:55] VITALS: BP 116/83
[2018-01-19] MEDS: HALOPERIDOL LACTATE 5MG/ML VIAL IM PRN ×3 (06:59→21:29)
[2018-01-19 08:00] VITALS: BP 115/83
[2018-01-19] MEDS: DIVALPROEX SODIUM 500MG DR TABLET PO SCH (08:25)
[2018-01-19 12:00] VITALS: BP 120/80
[2018-01-19] MEDS: OLANZAPINE 5MG TABLET PO SCH (14:58)
[2018-01-19 20:00] VITALS: BP 127/79
[2018-01-19] MEDS: DIVALPROEX SODIUM 250MG DR TABLET PO SCH (21:29)
[2018-01-20] VITALS: BP 139/87
[2018-01-20 04:20] VITALS: BP 122/82
[2018-01-20] MEDS: HALOPERIDOL LACTATE 5MG/ML VIAL IM PRN ×3 (05:32→21:30)
[2018-01-20] MEDS: OLANZAPINE 5MG TABLET PO SCH (08:25)
[2018-01-20] MEDS: DIVALPROEX SODIUM 250MG DR TABLET PO SCH ×2 (08:25→21:30)
[2018-01-20 12:00] VITALS: BP 102/58
[2018-01-20 20:00] VITALS: BP 127/82
[2018-01-21] VITALS: BP 119/77
[2018-01-21 04:00] VITALS: BP 133/76
[2018-01-21] MEDS: HALOPERIDOL LACTATE 5MG/ML VIAL IM PRN ×2 (06:10→21:23)
[2018-01-21 08:00] VITALS: BP 88/52
[2018-01-21] MEDS: OLANZAPINE 5MG TABLET PO SCH (09:16)
[2018-01-21] MEDS: DIVALPROEX SODIUM 250MG DR TABLET PO SCH ×2 (09:16→21:23)
[2018-01-21 12:00] VITALS: BP 135/90
[2018-01-21 16:00] VITALS: BP 127/83
[2018-01-21 20:00] VITALS: BP 132/85
[2018-01-22] VITALS: BP 125/76
[2018-01-22 04:00] VITALS: BP 144/79
[2018-01-22] MEDS: HALOPERIDOL LACTATE 5MG/ML VIAL IM PRN ×2 (07:16→18:23)
[2018-01-22 08:00] VITALS: BP 117/76
[2018-01-22] MEDS: DIVALPROEX SODIUM 250MG DR TABLET PO SCH ×2 (08:31→21:57)
[2018-01-22] MEDS: OLANZAPINE 5MG TABLET PO SCH (08:31)
[2018-01-22 20:00] VITALS: BP 136/51
[2018-01-23] VITALS: BP 128/58
[2018-01-23 04:00] VITALS: BP 128/56
[2018-01-23] MEDS: HALOPERIDOL LACTATE 5MG/ML VIAL IM PRN ×3 (06:51→22:01)
[2018-01-23 08:00] VITALS: BP 94/67
[2018-01-23] MEDS: OLANZAPINE 5MG TABLET PO SCH (09:03)
[2018-01-23] MEDS: DIVALPROEX SODIUM 250MG DR TABLET PO SCH ×2 (09:03→22:01)
[2018-01-23 12:00] VITALS: BP 95/70
[2018-01-23 16:00] VITALS: BP 97/68
[2018-01-23 20:00] VITALS: BP 121/74
[2018-01-24] VITALS: BP 122/64
[2018-01-24 04:00] VITALS: BP 131/72
[2018-01-24] MEDS: HALOPERIDOL LACTATE 5MG/ML VIAL IM PRN (04:38)
[2018-01-24 08:00] VITALS: BP 130/86
[2018-01-24] MEDS: OLANZAPINE 5MG TABLET PO SCH (09:17)
[2018-01-24] MEDS: DIVALPROEX SODIUM 250MG DR TABLET PO SCH ×2 (09:17→21:11)
[2018-01-24 12:00] VITALS: BP 113/70
[2018-01-24 16:00] VITALS: BP 111/76
[2018-01-24 20:00] VITALS: BP 122/78
[2018-01-25] VITALS: BP 119/64
[2018-01-25] MEDS: HALOPERIDOL LACTATE 5MG/ML VIAL IM PRN ×2 (01:19→09:18)
[2018-01-25 04:00] VITALS: BP 131/73
[2018-01-25 08:00] VITALS: BP 129/82
[2018-01-25] MEDS: OLANZAPINE 5MG TABLET PO SCH (08:02)
[2018-01-25] MEDS: DIVALPROEX SODIUM 250MG DR TABLET PO SCH ×2 (08:02→22:39)
[2018-01-25 20:00] VITALS: BP 138/56
[2018-01-26] VITALS: BP 132/54
[2018-01-26 04:00] VITALS: BP 143/56
[2018-01-26] MEDS: HALOPERIDOL LACTATE 5MG/ML VIAL IM PRN ×2 (08:16→14:02)
[2018-01-26] MEDS: DIVALPROEX SODIUM 250MG DR TABLET PO SCH ×2 (10:50→21:48)
[2018-01-26] MEDS: OLANZAPINE 5MG TABLET PO SCH (10:50)
[2018-01-26 12:00] VITALS: BP 134/80
[2018-01-26 16:00] VITALS: BP 132/56
[2018-01-26 20:00] VITALS: BP 135/76
[2018-01-27] VITALS: BP 115/73
[2018-01-27] MEDS: HALOPERIDOL LACTATE 5MG/ML VIAL IM PRN ×2 (01:18→16:03)
[2018-01-27 04:00] VITALS: BP 125/75
[2018-01-27] MEDS: OLANZAPINE 5MG TABLET PO SCH (08:21)
[2018-01-27] MEDS: DIVALPROEX SODIUM 250MG DR TABLET PO SCH ×2 (08:21→21:44)
[2018-01-27 08:38] VITALS: BP 99/62
[2018-01-27 12:00] VITALS: BP 119/80
[2018-01-27 16:00] VITALS: BP 119/80
[2018-01-27] MEDS ORDERED: OLANZAPINE 10 MG/VIAL IM NR (17:00)
[2018-01-27 20:00] VITALS: BP 120/68
[2018-01-28] VITALS: BP 112/81
[2018-01-28 04:00] VITALS: BP 119/67
[2018-01-28] MEDS: HALOPERIDOL LACTATE 5MG/ML VIAL IM PRN ×3 (04:20→19:04)
[2018-01-28 08:00] VITALS: BP 91/61
[2018-01-28] MEDS: DIVALPROEX SODIUM 250MG DR TABLET PO SCH ×2 (08:30→21:47)
[2018-01-28] MEDS: OLANZAPINE 10MG TABLET PO SCH (08:31)
[2018-01-28 12:00] VITALS: BP 92/65
[2018-01-28 16:00] VITALS: BP 95/68
[2018-01-28 20:00] VITALS: BP 116/76
[2018-01-29] VITALS: BP 126/66
[2018-01-29 04:00] VITALS: BP 122/70
[2018-01-29] MEDS: HALOPERIDOL LACTATE 5MG/ML VIAL IM PRN ×2 (04:27→11:22)
[2018-01-29 08:00] VITALS: BP 105/69
[2018-01-29] MEDS: OLANZAPINE 10MG TABLET PO SCH (08:32)
[2018-01-29] MEDS: DIVALPROEX SODIUM 250MG DR TABLET PO SCH ×2 (08:33→20:54)
[2018-01-29 12:00] VITALS: BP 98/65
[2018-01-29 16:00] VITALS: BP 121/69
[2018-01-30 04:00] VITALS: BP 117/84
[2018-01-30] MEDS: HALOPERIDOL LACTATE 5MG/ML VIAL IM PRN ×3 (06:11→22:02)
[2018-01-30 08:00] VITALS: BP 121/70
[2018-01-30] MEDS: DIVALPROEX SODIUM 250MG DR TABLET PO SCH ×2 (08:36→22:02)
[2018-01-30] MEDS: OLANZAPINE 10MG TABLET PO SCH (08:36)
[2018-01-30 10:19] VITALS: BP 121/70
[2018-01-30] MEDS ORDERED: OLANZAPINE 10 MG/VIAL IM NR (15:00)
[2018-01-30 20:00] VITALS: BP 122/75
[2018-01-31] VITALS: BP 118/76
[2018-01-31 04:00] VITALS: BP 131/77
[2018-01-31] MEDS: HALOPERIDOL LACTATE 5MG/ML VIAL IM PRN ×3 (05:01→22:05)
[2018-01-31 08:00] VITALS: BP 124/96
[2018-01-31] MEDS: DIVALPROEX SODIUM 250MG DR TABLET PO SCH ×2 (09:19→22:05)
[2018-01-31] MEDS: OLANZAPINE 10MG TABLET PO SCH (09:19)
[2018-01-31 12:00] VITALS: BP 119/86
[2018-01-31 16:00] VITALS: BP 98/57
[2018-01-31 20:00] VITALS: BP 135/76
[2018-02-01] VITALS: BP 123/80
[2018-02-01 04:00] VITALS: BP 130/86
[2018-02-01] MEDS: HALOPERIDOL LACTATE 5MG/ML VIAL IM PRN ×3 (05:27→21:55)
[2018-02-01 08:00] VITALS: BP 106/88
[2018-02-01] MEDS: DIVALPROEX SODIUM 250MG DR TABLET PO SCH ×2 (08:04→21:55)
[2018-02-01] MEDS: OLANZAPINE 10MG TABLET PO SCH (08:04)
[2018-02-01 12:00] VITALS: BP 106/67
[2018-02-01 16:00] VITALS: BP 128/78
[2018-02-01 20:00] VITALS: BP 96/60
[2018-02-02] VITALS: BP 124/72
[2018-02-02 04:00] VITALS: BP 120/72
[2018-02-02] MEDS: HALOPERIDOL LACTATE 5MG/ML VIAL IM PRN ×2 (05:52→11:56)
[2018-02-02 08:00] VITALS: BP 142/86
[2018-02-02] MEDS: OLANZAPINE 10MG TABLET PO SCH (08:20)
[2018-02-02] MEDS: DIVALPROEX SODIUM 250MG DR TABLET PO SCH ×2 (08:20→20:40)
[2018-02-02 20:00] VITALS: BP 116/82
[2018-02-03] VITALS: BP 123/78
[2018-02-03 04:00] VITALS: BP 103/71
[2018-02-03] MEDS: OLANZAPINE 10MG TABLET PO SCH (09:50)
[2018-02-03] MEDS: DIVALPROEX SODIUM 250MG DR TABLET PO SCH ×2 (09:50→20:46)
[2018-02-03 16:00] VITALS: BP 114/82
[2018-02-03 20:00] VITALS: BP 118/71
[2018-02-04] VITALS: BP 121/77
[2018-02-04 04:00] VITALS: BP 123/69
[2018-02-04 08:00] VITALS: BP 102/72
[2018-02-04] MEDS: OLANZAPINE 10MG TABLET PO SCH (08:25)
[2018-02-04] MEDS: DIVALPROEX SODIUM 250MG DR TABLET PO SCH ×2 (08:25→21:59)
[2018-02-04 12:00] VITALS: BP 118/70
[2018-02-04 16:00] VITALS: BP 107/71
[2018-02-05] VITALS: BP 122/75
[2018-02-05 04:00] VITALS: BP 117/70
[2018-02-05 08:00] VITALS: BP 127/74
[2018-02-05] MEDS: DIVALPROEX SODIUM 250MG DR TABLET PO SCH ×2 (08:39→21:42)
[2018-02-05] MEDS: OLANZAPINE 10MG TABLET PO SCH (08:40)
[2018-02-05 20:00] VITALS: BP 129/74
[2018-02-06] VITALS: BP 117/72
[2018-02-06] MEDS: HALOPERIDOL LACTATE 5MG/ML VIAL IM PRN ×2 (00:26→21:54)
[2018-02-06 04:00] VITALS: BP 117/71
[2018-02-06 08:00] VITALS: BP 107/72
[2018-02-06] MEDS: OLANZAPINE 10MG TABLET PO SCH (08:37)
[2018-02-06] MEDS: DIVALPROEX SODIUM 250MG DR TABLET PO SCH ×2 (08:37→21:49)
[2018-02-06 20:00] VITALS: BP 102/60
[2018-02-07] VITALS: BP 119/84
[2018-02-07 04:00] VITALS: BP 128/89
[2018-02-07 08:00] VITALS: BP 98/65
[2018-02-07] MEDS: DIVALPROEX SODIUM 250MG DR TABLET PO SCH ×2 (08:37→22:44)
[2018-02-07] MEDS: OLANZAPINE 10MG TABLET PO SCH (08:37)
[2018-02-07] MEDS: HALOPERIDOL LACTATE 5MG/ML VIAL IM PRN (08:52)
[2018-02-07 12:00] VITALS: BP 102/68
[2018-02-07 16:00] VITALS: BP 123/80
[2018-02-08] VITALS: BP 144/85
[2018-02-08 04:00] VITALS: BP 127/84
[2018-02-08 08:00] VITALS: BP 83/49
[2018-02-08] MEDS: DIVALPROEX SODIUM 250MG DR TABLET PO SCH ×2 (09:04→21:07)
[2018-02-08] MEDS: OLANZAPINE 10MG TABLET PO SCH (09:04)
[2018-02-08] MEDS: HALOPERIDOL LACTATE 5MG/ML VIAL IM PRN (10:58)
[2018-02-08] MEDS: DIPHENHYDRAMINE 50MG/ML VIAL IM PRN (15:39)
[2018-02-08] MEDS: LORAZEPAM 2MG/ML CPJ IM PRN (17:22)
[2018-02-08 19:30] VITALS: BP 142/71
[2018-02-09 00:02] VITALS: BP 120/76
[2018-02-09 05:16] VITALS: BP 127/69
[2018-02-09] MEDS: DIPHENHYDRAMINE 50MG/ML VIAL IM PRN (07:45)
[2018-02-09] MEDS: LORAZEPAM 2MG/ML CPJ IM PRN (07:45)
[2018-02-09] MEDS: DIVALPROEX SODIUM 250MG DR TABLET PO SCH ×2 (08:12→20:30)
[2018-02-09 08:21] VITALS: BP 124/82
[2018-02-09 12:00] VITALS: BP 116/76
[2018-02-09] MEDS: HALOPERIDOL LACTATE 5MG/ML VIAL IM PRN ×2 (12:26→20:30)
[2018-02-09] MEDS: OLANZAPINE 10MG TABLET PO SCH (12:31)
[2018-02-09 16:00] VITALS: BP 118/70
[2018-02-09 20:00] VITALS: BP 132/77
[2018-02-10] VITALS: BP 128/69
[2018-02-10 04:00] VITALS: BP 119/72
[2018-02-10 08:00] VITALS: BP 113/85
[2018-02-10] MEDS: OLANZAPINE 10MG TABLET PO SCH (08:24)
[2018-02-10] MEDS: DIVALPROEX SODIUM 250MG DR TABLET PO SCH ×2 (08:24→21:43)
[2018-02-10 12:00] VITALS: BP 113/88
[2018-02-10 16:00] VITALS: BP 112/87
[2018-02-10] MEDS: HALOPERIDOL LACTATE 5MG/ML VIAL IM PRN (16:11)
[2018-02-10 20:00] VITALS: BP 125/76
[2018-02-11] VITALS: BP 130/69
[2018-02-11] MEDS: HALOPERIDOL LACTATE 5MG/ML VIAL IM PRN ×3 (01:00→22:21)
[2018-02-11 04:00] VITALS: BP 130/72
[2018-02-11 08:00] VITALS: BP 123/81
[2018-02-11] MEDS: DIVALPROEX SODIUM 250MG DR TABLET PO SCH ×2 (08:36→22:20)
[2018-02-11] MEDS: OLANZAPINE 10MG TABLET PO SCH (08:36)
[2018-02-11 12:00] VITALS: BP 125/86
[2018-02-11 16:00] VITALS: BP 119/88
[2018-02-11 20:00] VITALS: BP 134/98
[2018-02-12] VITALS: BP 139/85
[2018-02-12 04:00] VITALS: BP 140/89
[2018-02-12 08:30] VITALS: BP 119/75
[2018-02-12] MEDS: OLANZAPINE 10MG TABLET PO SCH (08:41)
[2018-02-12] MEDS: DIVALPROEX SODIUM 250MG DR TABLET PO SCH ×2 (08:41→22:25)
[2018-02-12] MEDS: HALOPERIDOL LACTATE 5MG/ML VIAL IM PRN ×3 (09:32→22:25)
[2018-02-12 12:00] VITALS: BP 115/78
[2018-02-12 16:00] VITALS: BP 113/79
[2018-02-12 20:00] VITALS: BP 112/80
[2018-02-13] VITALS: BP 102/77
[2018-02-13 04:00] VITALS: BP 127/85
[2018-02-13 07:28] VITALS: BP 125/82
[2018-02-13] MEDS: OLANZAPINE 10MG TABLET PO SCH (08:37)
[2018-02-13] MEDS: DIVALPROEX SODIUM 250MG DR TABLET PO SCH ×2 (08:37→21:16)
[2018-02-13 11:36] VITALS: BP 121/69
[2018-02-13] MEDS: LORAZEPAM 2MG/ML CPJ IM PRN (14:18)
[2018-02-13 15:32] VITALS: BP 127/79
[2018-02-13 20:00] VITALS: BP 139/80
[2018-02-13] MEDS: HALOPERIDOL LACTATE 5MG/ML VIAL IM PRN (21:17)
[2018-02-14] VITALS: BP 135/81
[2018-02-14 04:00] VITALS: BP 117/73
[2018-02-14] MEDS: HALOPERIDOL LACTATE 5MG/ML VIAL IM PRN ×3 (06:32→20:51)
[2018-02-14 08:00] VITALS: BP 101/66
[2018-02-14] MEDS: DIVALPROEX SODIUM 250MG DR TABLET PO SCH ×2 (09:46→20:51)
[2018-02-14] MEDS: OLANZAPINE 10MG TABLET PO SCH (09:46)
[2018-02-14 12:00] VITALS: BP 108/80
[2018-02-14 16:00] VITALS: BP 98/61
[2018-02-14 20:00] VITALS: BP 129/77
[2018-02-15] VITALS: BP 130/75
[2018-02-15 04:00] VITALS: BP 129/80
[2018-02-15] MEDS: HALOPERIDOL LACTATE 5MG/ML VIAL IM PRN ×4 (07:11→22:07)
[2018-02-15 08:00] VITALS: BP 118/95
[2018-02-15] MEDS: OLANZAPINE 10MG TABLET PO SCH (09:05)
[2018-02-15] MEDS: DIVALPROEX SODIUM 250MG DR TABLET PO SCH ×2 (09:05→22:07)
[2018-02-15 12:00] VITALS: BP 97/54
[2018-02-15 16:00] VITALS: BP 98/66
[2018-02-15 20:00] VITALS: BP 136/80
[2018-02-16] VITALS: BP 125/69
[2018-02-16 04:00] VITALS: BP 129/70
[2018-02-16] MEDS: HALOPERIDOL LACTATE 5MG/ML VIAL IM PRN ×2 (06:41→20:41)
[2018-02-16] MEDS: OLANZAPINE 10MG TABLET PO SCH (08:28)
[2018-02-16] MEDS: DIVALPROEX SODIUM 250MG DR TABLET PO SCH (08:28)
[2018-02-16 20:00] VITALS: BP 125/68
[2018-02-16] MEDS ORDERED: DIVALPROEX SODIUM 250MG DR TABLET PO SCH (21:00)
[2018-02-16] MEDS: DIPHENHYDRAMINE 50MG/ML VIAL IM PRN (21:30)
[2018-02-17] VITALS: BP 133/72
[2018-02-17 04:00] VITALS: BP 118/76
[2018-02-17] MEDS: HALOPERIDOL LACTATE 5MG/ML VIAL IM PRN (09:37)
[2018-02-17] MEDS: OLANZAPINE 10MG TABLET PO SCH (09:53)
[2018-02-17 15:30] VITALS: BP 110/75
[2018-02-17 20:00] VITALS: BP 109/62
[2018-02-18] VITALS: BP 95/62
[2018-02-18 04:00] VITALS: BP 102/77
[2018-02-18 09:00] VITALS: BP 126/87
[2018-02-18] MEDS: OLANZAPINE 10MG TABLET PO SCH (09:56)
[2018-02-18 12:00] VITALS: BP 106/70
[2018-02-18 16:00] VITALS: BP 110/72
[2018-02-18 20:00] VITALS: BP 119/78
[2018-02-19 00:06] VITALS: BP 122/81
[2018-02-19 04:00] VITALS: BP 124/77
[2018-02-19 08:10] VITALS: BP 112/77
[2018-02-19] MEDS: OLANZAPINE 10MG TABLET PO SCH (08:19)
[2018-02-19 12:00] VITALS: BP 100/67
[2018-02-19 16:00] VITALS: BP 108/61
[2018-02-19 20:00] VITALS: BP 129/75
[2018-02-20] VITALS (24 sets, daily range): BP systolic 96–224; BP diastolic 31–96
[2018-02-20] MEDS: OLANZAPINE 10MG TABLET PO SCH (08:28)
[2018-02-20] MEDS ORDERED: SUCCINYLCHOLINE CHLORIDE 200MG/10ML IV ONE (14:01)
[2018-02-20] MEDS ORDERED: ETOMIDATE 2MG/ML 10ML VIAL IV ONE (14:01)
[2018-02-20] MEDS ORDERED: PROPOFOL 10MG/ML 100ML 100 ML IV PRN (14:15)
[2018-02-20 14:33] LABS: BG BASE EXCESS -5.1 mmol/L (-2.0-2.0); BG CARBOXYHEMOGLOBIN 0.4 % (0.5-1.5); BG DEOXYHEMOGLOBIN 0.9 % (0.0-5.0); BG HCO3 ACT 21.2 mmol/L (22.0-26.0); BG METHEMOGLOBIN 0.3 % (0.0-1.5); BG OXYGEN SATURATION 99.1 % (92.0-98.5); BG OXYHEMOGLOBIN 98.4 % (94.0-97.0); BG PCO2 43.9 mmHg (35.0-45.0); BG PH 7.301 (7.350-7.450); BG SAMPLE SITE RIGHT BRACHIAL; BG TIDAL VOLUME(mL) 500 mL; BG TOTAL HEMOGLOBIN 13.4 g/dL (12.0-18.0); BG VENT MODE VENT - A/C; BG VENT RATE 14 set
[2018-02-20] MEDS: HALOPERIDOL LACTATE 5MG/ML VIAL IM PRN ×2 (15:29→23:18)
[2018-02-20 16:31] LABS: BASOPHILS % 0.4 % (0.0-2.0); EOSINOPHILS % 0.6 % (0.0-5.0); HEMATOCRIT. 37.6 % (42.0-52.0); HEMOGLOBIN. 12.6 g/dL (14.0-18.0); LYMPHOCYTES % 9.6 % (20.0-50.0); MEAN CORPUSCULAR HEMOGLOBIN 31.5 pg (28.0-32.0); MEAN CORPUSCULAR VOLUME 93.7 fL (80.0-94.0); MONOCYTES % 6.7 % (2.0-8.0); NEUTROPHILS % 82.7 % (40.0-76.0); PLATELET 179 x1000/uL (130-400); RED BLOOD CELL COUNT 4.01 mill/uL (4.7-6.1); RED CELL DISTRIBUTION WIDTH 13.4 % (11.6-14.6)
[2018-02-20 16:34] LABS: CHLORIDE 108 mEq/L (98-107); INR 1.1
[2018-02-20] MEDS: DIVALPROEX SODIUM 250MG DR TABLET PO SCH (20:22)
[2018-02-21] VITALS (10 sets, daily range): BP systolic 100–147; BP diastolic 60–124
[2018-02-21] MEDS: DIPHENHYDRAMINE 50MG/ML VIAL IM PRN ×3 (01:48→18:33)
[2018-02-21] MEDS: DIVALPROEX SODIUM 250MG DR TABLET PO SCH ×2 (08:01→20:31)
[2018-02-21] MEDS: OLANZAPINE 10MG TABLET PO SCH (08:02)
[2018-02-21] MEDS ORDERED: PANTOPRAZOLE SODIUM 40 MG/VIAL IV SCH (09:00)
[2018-02-21] MEDS: HALOPERIDOL LACTATE 5MG/ML VIAL IM PRN ×2 (09:11→18:32)
[2018-02-21 16:59] LABS: EOSINOPHILS % 2.3 % (0.0-5.0); HEMATOCRIT. 37.7 % (42.0-52.0); HEMOGLOBIN. 12.7 g/dL (14.0-18.0); LYMPHOCYTES % 28.3 % (20.0-50.0); MEAN CORPUSCULAR HEMOGLOBIN 31.4 pg (28.0-32.0); MEAN CORPUSCULAR VOLUME 93.2 fL (80.0-94.0); MEAN PLATELET VOLUME 8.9 fl (7.4-10.4); NEUTROPHILS % 57.4 % (40.0-76.0); PLATELET 187 x1000/uL (130-400); RED BLOOD CELL COUNT 4.05 mill/uL (4.7-6.1); RED CELL DISTRIBUTION WIDTH 13.6 % (11.6-14.6)
[2018-02-21 17:14] LABS: CHLORIDE 111 mEq/L (98-107)
[2018-02-22] VITALS: BP 98/67
[2018-02-22 04:00] VITALS: BP 108/64
[2018-02-22 05:35] LABS: BASOPHILS % 0.9 % (0.0-2.0); EOSINOPHILS % 2.2 % (0.0-5.0); HEMATOCRIT. 40.4 % (42.0-52.0); HEMOGLOBIN. 13.7 g/dL (14.0-18.0); LYMPHOCYTES % 26.5 % (20.0-50.0); MEAN CORPUSCULAR HEMOGLOBIN 31.7 pg (28.0-32.0); MEAN PLATELET VOLUME 8.7 fl (7.4-10.4); MONOCYTES % 9.4 % (2.0-8.0); PLATELET 211 x1000/uL (130-400); RED BLOOD CELL COUNT 4.34 mill/uL (4.7-6.1); RED CELL DISTRIBUTION WIDTH 13.3 % (11.6-14.6)
[2018-02-22 05:48] LABS: CHLORIDE 108 mEq/L (98-107)
[2018-02-22] MEDS: PANTOPRAZOLE 40MG DR TABLET PO SCH (06:20)
[2018-02-22] MEDS: DIVALPROEX SODIUM 250MG DR TABLET PO SCH ×2 (08:42→20:14)
[2018-02-22] MEDS: OLANZAPINE 10MG TABLET PO SCH (08:43)
[2018-02-22 20:00] VITALS: BP 104/70
[2018-02-22] MEDS: DIPHENHYDRAMINE 50MG/ML VIAL IM PRN (20:14)
[2018-02-23] VITALS (24 sets, daily range): BP systolic 100–173; BP diastolic 28–111
[2018-02-23] MEDS: PANTOPRAZOLE 40MG DR TABLET PO SCH (06:57)
[2018-02-23 09:41] LABS: BG BASE EXCESS 1.9 mmol/L (-2.0-2.0); BG CARBOXYHEMOGLOBIN 0.6 % (0.5-1.5); BG DEOXYHEMOGLOBIN 2.3 % (0.0-5.0); BG FRACTION INSPIRED OXYGEN 28; BG HCO3 ACT 28.8 mmol/L (22.0-26.0); BG METHEMOGLOBIN 0.3 % (0.0-1.5); BG OXYGEN SATURATION 97.7 % (92.0-98.5); BG OXYHEMOGLOBIN 96.8 % (94.0-97.0); BG PCO2 54.6 mmHg (35.0-45.0); BG PO2 114.7 mmHg (75.0-100.0); BG SAMPLE SITE RIGHT RADIAL; BG TOTAL HEMOGLOBIN 13.5 g/dL (12.0-18.0); BG VENT MODE NASAL CANNULA
[2018-02-23 12:13] LABS: BASOPHILS % 1.1 % (0.0-2.0); EOSINOPHILS % 3.5 % (0.0-5.0); HEMOGLOBIN. 13.8 g/dL (14.0-18.0); LYMPHOCYTES % 38.2 % (20.0-50.0); MEAN CORPUSCULAR HEMOGLOBIN 30.9 pg (28.0-32.0); MEAN CORPUSCULAR VOLUME 94.2 fL (80.0-94.0); MEAN PLATELET VOLUME 8.9 fl (7.4-10.4); MONOCYTES % 7.9 % (2.0-8.0); NEUTROPHILS % 49.3 % (40.0-76.0); PLATELET 211 x1000/uL (130-400); RED BLOOD CELL COUNT 4.45 mill/uL (4.7-6.1); RED CELL DISTRIBUTION WIDTH 13.5 % (11.6-14.6)
[2018-02-23 12:17] LABS: CHLORIDE 108 mEq/L (98-107)
[2018-02-23] MEDS: OLANZAPINE 10MG TABLET PO SCH (13:54)
[2018-02-23] MEDS: DIVALPROEX SODIUM 250MG DR TABLET PO SCH ×2 (13:54→22:01)
[2018-02-23] MEDS: HALOPERIDOL LACTATE 5MG/ML VIAL IM PRN ×2 (15:26→17:20)
[2018-02-23] MEDS: LORAZEPAM 2MG/ML CPJ IM PRN ×2 (17:20→22:10)
[2018-02-24] VITALS: BP 131/92
[2018-02-24 04:00] VITALS: BP 128/89
[2018-02-24] MEDS: PANTOPRAZOLE 40MG DR TABLET PO SCH (06:41)
[2018-02-24 08:00] VITALS: BP 131/83
[2018-02-24] MEDS: DIVALPROEX SODIUM 250MG DR TABLET PO SCH ×2 (09:00→20:05)
[2018-02-24] MEDS: OLANZAPINE 10MG TABLET PO SCH (09:00)
[2018-02-24] MEDS: HALOPERIDOL LACTATE 5MG/ML VIAL IM PRN ×2 (10:11→17:14)
[2018-02-24 12:00] VITALS: BP 129/84
[2018-02-24] MEDS: LORAZEPAM 2MG/ML CPJ IM PRN (14:39)
[2018-02-24 16:10] VITALS: BP 130/87
[2018-02-24 20:00] VITALS: BP 141/75
[2018-02-25 04:00] VITALS: BP 106/69
[2018-02-25] MEDS: PANTOPRAZOLE 40MG DR TABLET PO SCH (07:19)
[2018-02-25 08:00] VITALS: BP 98/62
[2018-02-25] MEDS: DIVALPROEX SODIUM 250MG DR TABLET PO SCH ×2 (08:04→20:16)
[2018-02-25] MEDS: OLANZAPINE 10MG TABLET PO SCH (08:05)
[2018-02-25 12:00] VITALS: BP 117/70
[2018-02-25 16:00] VITALS: BP 106/86
[2018-02-25 20:00] VITALS: BP 98/60
[2018-02-25] MEDS: LORAZEPAM 2MG/ML CPJ IM PRN (23:19)
[2018-02-26] VITALS: BP 102/61
[2018-02-26 04:00] VITALS: BP 94/69
[2018-02-26] MEDS: PANTOPRAZOLE 40MG DR TABLET PO SCH (06:11)
[2018-02-26 07:52] VITALS: BP 97/49
[2018-02-26] MEDS: OLANZAPINE 10MG TABLET PO SCH (09:12)
[2018-02-26] MEDS: DIVALPROEX SODIUM 250MG DR TABLET PO SCH ×2 (09:12→21:00)
[2018-02-26 12:00] VITALS: BP 105/60
[2018-02-26] MEDS: LORAZEPAM 2MG/ML CPJ IM PRN ×2 (14:06→19:14)
[2018-02-26 16:00] VITALS: BP 100/56
[2018-02-26] MEDS: DIPHENHYDRAMINE 50MG/ML VIAL IM PRN (19:53)
[2018-02-26 20:00] VITALS: BP 104/74
[2018-02-27] VITALS: BP 115/72
[2018-02-27] MEDS: LORAZEPAM 2MG/ML CPJ IM PRN ×4 (01:05→21:19)
[2018-02-27] MEDS: DIPHENHYDRAMINE 50MG/ML VIAL IM PRN ×2 (02:55→20:06)
[2018-02-27 04:00] VITALS: BP 106/69
[2018-02-27] MEDS: PANTOPRAZOLE 40MG DR TABLET PO SCH (06:10)
[2018-02-27 08:00] VITALS: BP 97/62
[2018-02-27] MEDS: DIVALPROEX SODIUM 250MG DR TABLET PO SCH ×2 (10:21→20:21)
[2018-02-27 12:00] VITALS: BP 115/70
[2018-02-27 16:00] VITALS: BP 120/70
[2018-02-27 20:00] VITALS: BP 110/75
[2018-02-28] VITALS: BP 106/66
[2018-02-28 04:00] VITALS: BP 120/77
[2018-02-28] MEDS: LORAZEPAM 2MG/ML CPJ IM PRN ×4 (04:20→22:27)
[2018-02-28 08:00] VITALS: BP 114/70
[2018-02-28] MEDS: DIPHENHYDRAMINE 50MG/ML VIAL IM PRN ×3 (09:49→23:19)
[2018-02-28] MEDS: PANTOPRAZOLE 40MG DR TABLET PO SCH (09:49)
[2018-02-28] MEDS: DIVALPROEX SODIUM 250MG DR TABLET PO SCH ×2 (09:49→21:17)
[2018-02-28 12:00] VITALS: BP 120/70
[2018-02-28 16:00] VITALS: BP 124/81
[2018-02-28 20:00] VITALS: BP 120/72
[2018-03-01] VITALS: BP 125/82
[2018-03-01] MEDS: LORAZEPAM 2MG/ML CPJ IM PRN ×3 (03:28→22:30)
[2018-03-01 04:00] VITALS: BP 125/78
[2018-03-01] MEDS: DIPHENHYDRAMINE 50MG/ML VIAL IM PRN ×2 (06:59→21:52)
[2018-03-01 08:00] VITALS: BP 112/80
[2018-03-01] MEDS: PANTOPRAZOLE 40MG DR TABLET PO SCH (08:02)
[2018-03-01] MEDS: DIVALPROEX SODIUM 250MG DR TABLET PO SCH ×2 (08:03→21:03)
[2018-03-01 12:00] VITALS: BP 116/74
[2018-03-01 16:00] VITALS: BP 124/70
[2018-03-01 20:00] VITALS: BP 116/76
[2018-03-02] VITALS (7 sets, daily range): BP systolic 103–131; BP diastolic 72–88
[2018-03-02] MEDS: PANTOPRAZOLE 40MG DR TABLET PO SCH (06:32)
[2018-03-02] MEDS: DIVALPROEX SODIUM 250MG DR TABLET PO SCH ×2 (13:58→21:12)
[2018-03-02] MEDS: LORAZEPAM 2MG/ML CPJ IM PRN ×2 (17:16→21:39)
[2018-03-02] MEDS: NEOMY SULF/BACITRAC ZN/POLY OINT 28GM TOP SCH (21:12)
[2018-03-02] MEDS: DIPHENHYDRAMINE 50MG/ML VIAL IM PRN (21:12)
[2018-03-03] VITALS: BP 115/76
[2018-03-03 04:00] VITALS: BP 113/68
[2018-03-03] MEDS: PANTOPRAZOLE 40MG DR TABLET PO SCH (06:34)
[2018-03-03] MEDS: NEOMY SULF/BACITRAC ZN/POLY OINT 28GM TOP SCH ×2 (08:00→22:11)
[2018-03-03] MEDS: DIVALPROEX SODIUM 250MG DR TABLET PO SCH ×2 (08:00→22:11)
[2018-03-03] MEDS: LORAZEPAM 2MG/ML CPJ IM PRN ×2 (08:00→14:31)
[2018-03-03] MEDS: DIPHENHYDRAMINE 50MG/ML VIAL IM PRN ×2 (09:04→15:34)
[2018-03-03 10:48] VITALS: BP 115/68
[2018-03-03 12:00] VITALS: BP 111/65
[2018-03-03 16:00] VITALS: BP 104/63
[2018-03-03 20:00] VITALS: BP 115/97
[2018-03-03] MEDS: LORAZEPAM 2MG/ML CPJ IV PRN (21:35)
[2018-03-04] VITALS (7 sets, daily range): BP systolic 101–113; BP diastolic 53–68
[2018-03-04] MEDS: DIPHENHYDRAMINE 50MG/ML VIAL IM PRN ×3 (00:11→21:56)
[2018-03-04] MEDS: PANTOPRAZOLE 40MG DR TABLET PO SCH (06:26)
[2018-03-04] MEDS: NEOMY SULF/BACITRAC ZN/POLY OINT 28GM TOP SCH ×2 (09:22→20:07)
[2018-03-04] MEDS: DIVALPROEX SODIUM 250MG DR TABLET PO SCH ×2 (11:10→20:07)
[2018-03-04] MEDS: LORAZEPAM 2MG/ML CPJ IV PRN ×2 (15:04→20:07)
[2018-03-05 04:00] VITALS: BP 112/80
[2018-03-05] MEDS: LORAZEPAM 2MG/ML CPJ IV PRN ×3 (05:05→21:00)
[2018-03-05] MEDS: DIPHENHYDRAMINE 50MG/ML VIAL IM PRN ×4 (05:54→23:28)
[2018-03-05] MEDS: PANTOPRAZOLE 40MG DR TABLET PO SCH (06:09)
[2018-03-05 08:30] VITALS: BP 116/59
[2018-03-05] MEDS: DIVALPROEX SODIUM 250MG DR TABLET PO SCH ×2 (09:46→20:04)
[2018-03-05] MEDS: OLANZAPINE 10MG TABLET PO SCH (09:46)
[2018-03-05] MEDS: NEOMY SULF/BACITRAC ZN/POLY OINT 28GM TOP SCH ×2 (09:49→20:04)
[2018-03-05] MEDS ORDERED: LORAZEPAM 2MG/ML CPJ IM SCH (10:45)
[2018-03-05 12:00] VITALS: BP 109/63
[2018-03-05 16:00] VITALS: BP 117/70
[2018-03-05 20:00] VITALS: BP 114/57
[2018-03-06] VITALS: BP 104/52
[2018-03-06 04:00] VITALS: BP 110/59
[2018-03-06] MEDS: PANTOPRAZOLE 40MG DR TABLET PO SCH ×2 (06:14→11:40)
[2018-03-06 08:00] VITALS: BP 134/92
[2018-03-06] MEDS: DIVALPROEX SODIUM 250MG DR TABLET PO SCH ×2 (11:40→20:49)
[2018-03-06] MEDS: NEOMY SULF/BACITRAC ZN/POLY OINT 28GM TOP SCH ×2 (11:41→21:00)
[2018-03-06] MEDS: OLANZAPINE 10MG TABLET PO SCH (11:41)
[2018-03-06] MEDS: DIPHENHYDRAMINE 50MG/ML VIAL IM PRN ×2 (11:43→20:48)
[2018-03-06 12:00] VITALS: BP 105/76
[2018-03-06 16:00] VITALS: BP 104/84
[2018-03-06 20:00] VITALS: BP 124/103
[2018-03-06] MEDS: LORAZEPAM 2MG/ML CPJ IV PRN (20:48)
[2018-03-07] VITALS: BP 130/91
[2018-03-07 04:00] VITALS: BP 109/73
[2018-03-07 08:00] VITALS: BP 116/81
[2018-03-07] MEDS: OLANZAPINE 10MG TABLET PO SCH (10:00)
[2018-03-07] MEDS: DIVALPROEX SODIUM 250MG DR TABLET PO SCH ×2 (10:00→22:43)
[2018-03-07 12:00] VITALS: BP 93/66
[2018-03-07] MEDS: NEOMY SULF/BACITRAC ZN/POLY OINT 28GM TOP SCH ×2 (12:32→22:41)
[2018-03-07] MEDS: LORAZEPAM 2MG/ML CPJ IV PRN ×2 (14:36→22:01)
[2018-03-07] MEDS: DIPHENHYDRAMINE 50MG/ML VIAL IM PRN ×2 (16:22→22:05)
[2018-03-07 20:00] VITALS: BP 115/74
[2018-03-08] VITALS: BP 99/66
[2018-03-08 04:00] VITALS: BP 115/59
[2018-03-08] MEDS: PANTOPRAZOLE 40MG DR TABLET PO SCH (05:18)
[2018-03-08 08:00] VITALS: BP 112/67
[2018-03-08] MEDS: OLANZAPINE 10MG TABLET PO SCH (08:30)
[2018-03-08] MEDS: DIPHENHYDRAMINE 50MG/ML VIAL IM PRN (08:30)
[2018-03-08] MEDS: DIVALPROEX SODIUM 250MG DR TABLET PO SCH ×2 (08:31→20:20)
[2018-03-08] MEDS ORDERED: LORAZEPAM 2MG/ML CPJ IM PRN (09:15)
[2018-03-08] MEDS ORDERED: HALOPERIDOL LACTATE 5MG/ML VIAL IM NR (18:30)
[2018-03-08] MEDS: NEOMY SULF/BACITRAC ZN/POLY OINT 28GM TOP SCH ×2 (20:21→20:22)
[2018-03-09] MEDS: PANTOPRAZOLE 40MG DR TABLET PO SCH (06:07)
[2018-03-09 10:35] VITALS: BP 126/87
[2018-03-09] MEDS: OLANZAPINE 10MG TABLET PO SCH ×2 (10:54→20:27)
[2018-03-09] MEDS: DIVALPROEX SODIUM 250MG DR TABLET PO SCH ×2 (10:57→20:27)
[2018-03-09] MEDS: NEOMY SULF/BACITRAC ZN/POLY OINT 28GM TOP SCH ×2 (10:57→20:28)
[2018-03-09] MEDS: LORAZEPAM 2MG/ML CPJ IM PRN ×2 (10:57→21:03)
[2018-03-09 12:30] VITALS: BP 126/72
[2018-03-09 15:52] VITALS: BP 129/87
[2018-03-09 20:00] VITALS: BP 122/80
[2018-03-09] MEDS ORDERED: HALOPERIDOL LACTATE 5MG/ML VIAL IM NR (22:45)
[2018-03-10] VITALS: BP 115/77
[2018-03-10 04:00] VITALS: BP 105/75
[2018-03-10] MEDS: OLANZAPINE 10MG TABLET PO SCH ×2 (08:26→17:41)
[2018-03-10] MEDS: DIVALPROEX SODIUM 250MG DR TABLET PO SCH ×2 (08:26→20:04)
[2018-03-10] MEDS: PANTOPRAZOLE 40MG DR TABLET PO SCH (08:26)
[2018-03-10] MEDS: NEOMY SULF/BACITRAC ZN/POLY OINT 28GM TOP SCH ×2 (08:27→20:04)
[2018-03-10 20:00] VITALS: BP 101/81
[2018-03-10] MEDS: LORAZEPAM 2MG/ML CPJ IM PRN (22:02)
[2018-03-11] VITALS: BP 111/88
[2018-03-11 04:00] VITALS: BP 105/78
[2018-03-11] MEDS: PANTOPRAZOLE 40MG DR TABLET PO SCH (06:56)
[2018-03-11 07:39] VITALS: BP 106/82
[2018-03-11] MEDS: DIVALPROEX SODIUM 250MG DR TABLET PO SCH ×2 (08:53→20:29)
[2018-03-11] MEDS: OLANZAPINE 10MG TABLET PO SCH ×2 (08:54→18:01)
[2018-03-11] MEDS: NEOMY SULF/BACITRAC ZN/POLY OINT 28GM TOP SCH ×2 (08:55→20:29)
[2018-03-11] MEDS: LORAZEPAM 2MG/ML CPJ IM PRN ×2 (08:55→20:29)
[2018-03-11 12:10] VITALS: BP 107/84
[2018-03-11 16:00] VITALS: BP 139/82
[2018-03-11 20:00] VITALS: BP 112/79
[2018-03-11] MEDS ORDERED: HALOPERIDOL 5MG TABLET PO PRN (22:00)
[2018-03-11] MEDS: HALOPERIDOL LACTATE 5MG/ML VIAL IM PRN (23:10)
[2018-03-12] VITALS: BP 109/82
[2018-03-12 04:00] VITALS: BP 122/80
[2018-03-12] MEDS: PANTOPRAZOLE 40MG DR TABLET PO SCH (06:30)
[2018-03-12] MEDS: DIVALPROEX SODIUM 250MG DR TABLET PO SCH ×2 (09:00→20:48)
[2018-03-12] MEDS: OLANZAPINE 10MG TABLET PO SCH ×2 (09:00→17:37)
[2018-03-12] MEDS: NEOMY SULF/BACITRAC ZN/POLY OINT 28GM TOP SCH ×3 (11:20→21:04)
[2018-03-12] MEDS: TRIAMCINOLONE ACETONIDE 0.1% CREAM 15GM TOP SCH ×2 (11:22→20:54)
[2018-03-12 13:30] VITALS: BP 123/67
[2018-03-12] MEDS: PREDNISONE 20MG TABLET PO SCH (14:24)
[2018-03-12 16:00] VITALS: BP 128/77
[2018-03-12 20:00] VITALS: BP 128/75
[2018-03-13] VITALS: BP 122/74
[2018-03-13 04:00] VITALS: BP 133/82
[2018-03-13] MEDS: PANTOPRAZOLE 40MG DR TABLET PO SCH (06:17)
[2018-03-13 08:00] VITALS: BP 113/82
[2018-03-13] MEDS: HALOPERIDOL LACTATE 5MG/ML VIAL IM PRN ×2 (08:27→20:36)
[2018-03-13] MEDS: OLANZAPINE 10MG TABLET PO SCH ×2 (09:49→16:26)
[2018-03-13] MEDS: TRIAMCINOLONE ACETONIDE 0.1% CREAM 15GM TOP SCH ×2 (09:49→20:38)
[2018-03-13] MEDS: NEOMY SULF/BACITRAC ZN/POLY OINT 28GM TOP SCH ×2 (09:49→20:39)
[2018-03-13] MEDS: DIVALPROEX SODIUM 250MG DR TABLET PO SCH ×2 (09:50→20:36)
[2018-03-13] MEDS: PREDNISONE 20MG TABLET PO SCH (09:50)
[2018-03-13 11:36] VITALS: BP 95/63
[2018-03-13 16:00] VITALS: BP 93/55
[2018-03-13 20:00] VITALS: BP 102/81
[2018-03-14] VITALS: BP 98/76
[2018-03-14 04:00] VITALS: BP 116/80
[2018-03-14] MEDS: PANTOPRAZOLE 40MG DR TABLET PO SCH ×2 (07:08→09:54)
[2018-03-14] MEDS: NEOMY SULF/BACITRAC ZN/POLY OINT 28GM TOP SCH ×2 (09:00→20:21)
[2018-03-14] MEDS: TRIAMCINOLONE ACETONIDE 0.1% CREAM 15GM TOP SCH ×2 (09:00→20:21)
[2018-03-14] MEDS: DIVALPROEX SODIUM 250MG DR TABLET PO SCH ×2 (09:53→20:20)
[2018-03-14] MEDS: PREDNISONE 20MG TABLET PO SCH (09:54)
[2018-03-14] MEDS: OLANZAPINE 10MG TABLET PO SCH ×2 (09:54→18:38)
[2018-03-14 19:57] VITALS: BP 120/80
[2018-03-14 23:54] VITALS: BP 118/60
[2018-03-15 04:00] VITALS: BP 110/88
[2018-03-15] MEDS: PANTOPRAZOLE 40MG DR TABLET PO SCH (06:12)
[2018-03-15] MEDS: NEOMY SULF/BACITRAC ZN/POLY OINT 28GM TOP SCH ×2 (08:30→20:29)
[2018-03-15] MEDS: DIVALPROEX SODIUM 250MG DR TABLET PO SCH ×2 (08:30→20:22)
[2018-03-15] MEDS: OLANZAPINE 10MG TABLET PO SCH ×2 (08:30→17:31)
[2018-03-15] MEDS: TRIAMCINOLONE ACETONIDE 0.1% CREAM 15GM TOP SCH ×2 (08:31→20:30)
[2018-03-15 16:00] VITALS: BP 101/67
[2018-03-15 20:00] VITALS: BP 144/86
[2018-03-16] VITALS (7 sets, daily range): BP systolic 96–147; BP diastolic 63–88
[2018-03-16] MEDS: PANTOPRAZOLE 40MG DR TABLET PO SCH (07:10)
[2018-03-16] MEDS: OLANZAPINE 10MG TABLET PO SCH ×2 (09:00→17:23)
[2018-03-16] MEDS: DIVALPROEX SODIUM 250MG DR TABLET PO SCH ×2 (09:00→20:18)
[2018-03-16] MEDS: NEOMY SULF/BACITRAC ZN/POLY OINT 28GM TOP SCH ×2 (09:00→20:21)
[2018-03-16] MEDS: TRIAMCINOLONE ACETONIDE 0.1% CREAM 15GM TOP SCH ×2 (09:00→20:19)
[2018-03-17 04:00] VITALS: BP 119/80
[2018-03-17] MEDS: PANTOPRAZOLE 40MG DR TABLET PO SCH (06:10)
[2018-03-17 08:00] VITALS: BP 112/72
[2018-03-17] MEDS: DIVALPROEX SODIUM 250MG DR TABLET PO SCH ×2 (08:57→21:00)
[2018-03-17] MEDS: NEOMY SULF/BACITRAC ZN/POLY OINT 28GM TOP SCH ×2 (08:57→21:00)
[2018-03-17] MEDS: OLANZAPINE 10MG TABLET PO SCH ×2 (08:57→17:00)
[2018-03-17] MEDS: TRIAMCINOLONE ACETONIDE 0.1% CREAM 15GM TOP SCH ×2 (08:59→21:00)
[2018-03-17 12:00] VITALS: BP 110/66
[2018-03-17 16:00] VITALS: BP 116/70
[2018-03-17 20:00] VITALS: BP 112/85
[2018-03-17] MEDS: LORAZEPAM 2MG/ML CPJ IM PRN (21:28)
[2018-03-17] MEDS: HALOPERIDOL LACTATE 5MG/ML VIAL IM PRN (22:40)
[2018-03-18] VITALS: BP 101/79
[2018-03-18 04:00] VITALS: BP 107/72
[2018-03-18 08:00] VITALS: BP 104/63
[2018-03-18] MEDS: FAMOTIDINE 20MG TABLET PO SCH ×2 (10:17→20:32)
[2018-03-18] MEDS: OLANZAPINE 10MG TABLET PO SCH ×2 (10:17→17:00)
[2018-03-18] MEDS: DIVALPROEX SODIUM 250MG DR TABLET PO SCH ×2 (10:17→20:32)
[2018-03-18] MEDS: LORAZEPAM 2MG/ML CPJ IM PRN ×2 (10:19→20:56)
[2018-03-18] MEDS: NEOMY SULF/BACITRAC ZN/POLY OINT 28GM TOP SCH ×2 (10:33→20:36)
[2018-03-18 12:00] VITALS: BP 133/76
[2018-03-18] MEDS: TRIAMCINOLONE ACETONIDE 0.1% CREAM 15GM TOP SCH ×2 (12:00→20:36)
[2018-03-18 16:12] VITALS: BP 129/86
[2018-03-18 20:00] VITALS: BP 110/65
[2018-03-19] VITALS: BP 108/63
[2018-03-19] MEDS: HALOPERIDOL LACTATE 5MG/ML VIAL IM PRN ×3 (01:47→23:50)
[2018-03-19 04:00] VITALS: BP 115/70
[2018-03-19 08:00] VITALS: BP 133/83
[2018-03-19] MEDS: DIVALPROEX SODIUM 250MG DR TABLET PO SCH ×3 (09:00→20:03)
[2018-03-19] MEDS: FAMOTIDINE 20MG TABLET PO SCH ×3 (09:00→20:03)
[2018-03-19] MEDS: TRIAMCINOLONE ACETONIDE 0.1% CREAM 15GM TOP SCH ×2 (09:00→20:03)
[2018-03-19] MEDS: NEOMY SULF/BACITRAC ZN/POLY OINT 28GM TOP SCH ×2 (09:00→20:05)
[2018-03-19] MEDS: OLANZAPINE 10MG TABLET PO SCH ×3 (09:00→16:43)
[2018-03-19 12:00] VITALS: BP 104/68
[2018-03-19 16:00] VITALS: BP 128/75
[2018-03-19] MEDS ORDERED: LORAZEPAM 2MG/ML CPJ IM PRN (19:30)
[2018-03-19 19:50] VITALS: BP 114/77
[2018-03-20] VITALS: BP 109/79
[2018-03-20 04:00] VITALS: BP 129/93
[2018-03-20 08:00] VITALS: BP 100/70
[2018-03-20] MEDS: DIVALPROEX SODIUM 250MG DR TABLET PO SCH ×2 (11:39→20:25)
[2018-03-20] MEDS: OLANZAPINE 10MG TABLET PO SCH ×2 (11:39→17:00)
[2018-03-20] MEDS: FAMOTIDINE 20MG TABLET PO SCH ×2 (11:39→20:25)
[2018-03-20] MEDS: NEOMY SULF/BACITRAC ZN/POLY OINT 28GM TOP SCH ×2 (11:40→20:52)
[2018-03-20] MEDS: TRIAMCINOLONE ACETONIDE 0.1% CREAM 15GM TOP SCH ×2 (11:40→20:25)
[2018-03-20 12:00] VITALS: BP 116/74
[2018-03-20 16:00] VITALS: BP 125/89
[2018-03-20 19:43] VITALS: BP 115/88
[2018-03-21] MEDS: HALOPERIDOL LACTATE 5MG/ML VIAL IM PRN ×2 (00:03→18:02)
[2018-03-21 00:08] VITALS: BP 119/77
[2018-03-21 04:00] VITALS: BP 110/80
[2018-03-21 08:00] VITALS: BP 99/60
[2018-03-21] MEDS: FAMOTIDINE 20MG TABLET PO SCH ×2 (08:45→21:45)
[2018-03-21] MEDS: OLANZAPINE 10MG TABLET PO SCH ×2 (08:45→18:05)
[2018-03-21] MEDS: NEOMY SULF/BACITRAC ZN/POLY OINT 28GM TOP SCH ×2 (09:00→21:46)
[2018-03-21] MEDS: TRIAMCINOLONE ACETONIDE 0.1% CREAM 15GM TOP SCH ×2 (09:00→21:45)
[2018-03-21 12:00] VITALS: BP 104/56
[2018-03-21 16:00] VITALS: BP 126/80
[2018-03-21 20:00] VITALS: BP 118/78
[2018-03-22] VITALS: BP 112/80
[2018-03-22] MEDS: HALOPERIDOL LACTATE 5MG/ML VIAL IM PRN ×2 (00:06→20:00)
[2018-03-22 04:00] VITALS: BP 108/72
[2018-03-22 08:00] VITALS: BP 99/58
[2018-03-22] MEDS: TRIAMCINOLONE ACETONIDE 0.1% CREAM 15GM TOP SCH ×2 (10:21→20:01)
[2018-03-22] MEDS: FAMOTIDINE 20MG TABLET PO SCH ×2 (10:21→20:00)
[2018-03-22] MEDS: OLANZAPINE 10MG TABLET PO SCH ×2 (10:21→18:00)
[2018-03-22] MEDS: NEOMY SULF/BACITRAC ZN/POLY OINT 28GM TOP SCH ×2 (10:21→20:00)
[2018-03-22 16:00] VITALS: BP 92/67
[2018-03-22 20:00] VITALS: BP 103/79
[2018-03-23] VITALS: BP 102/62
[2018-03-23 04:00] VITALS: BP 121/82
[2018-03-23 08:00] VITALS: BP 107/67
[2018-03-23] MEDS: NEOMY SULF/BACITRAC ZN/POLY OINT 28GM TOP SCH ×2 (09:15→20:28)
[2018-03-23] MEDS: FAMOTIDINE 20MG TABLET PO SCH ×2 (09:15→20:28)
[2018-03-23] MEDS: OLANZAPINE 10MG TABLET PO SCH ×2 (09:15→17:05)
[2018-03-23] MEDS: TRIAMCINOLONE ACETONIDE 0.1% CREAM 15GM TOP SCH ×2 (09:17→20:26)
[2018-03-23 12:00] VITALS: BP 121/68
[2018-03-23 16:00] VITALS: BP 126/75
[2018-03-23 20:00] VITALS: BP 103/74
[2018-03-23] MEDS: HALOPERIDOL LACTATE 5MG/ML VIAL IM PRN (20:26)
[2018-03-24] VITALS (7 sets, daily range): BP systolic 93–132; BP diastolic 59–86
[2018-03-24] MEDS: FAMOTIDINE 20MG TABLET PO SCH ×2 (09:22→21:21)
[2018-03-24] MEDS: OLANZAPINE 10MG TABLET PO SCH ×2 (09:22→16:29)
[2018-03-24] MEDS: NEOMY SULF/BACITRAC ZN/POLY OINT 28GM TOP SCH ×2 (09:23→21:22)
[2018-03-24] MEDS: TRIAMCINOLONE ACETONIDE 0.1% CREAM 15GM TOP SCH ×2 (09:23→21:22)
[2018-03-24] MEDS: HALOPERIDOL LACTATE 5MG/ML VIAL IM PRN (21:21)
[2018-03-25 04:00] VITALS: BP 105/66
[2018-03-25 07:46] VITALS: BP 138/82
[2018-03-25] MEDS: OLANZAPINE 10MG TABLET PO SCH ×2 (09:00→17:02)
[2018-03-25] MEDS: FAMOTIDINE 20MG TABLET PO SCH ×2 (09:00→20:06)
[2018-03-25] MEDS: HALOPERIDOL LACTATE 5MG/ML VIAL IM PRN ×2 (10:24→20:06)
[2018-03-25 11:45] VITALS: BP 105/65
[2018-03-25 16:00] VITALS: BP 140/83
[2018-03-25 20:00] VITALS: BP 120/68
[2018-03-25] MEDS: NEOMY SULF/BACITRAC ZN/POLY OINT 28GM TOP SCH ×2 (20:07→20:19)
[2018-03-25] MEDS: TRIAMCINOLONE ACETONIDE 0.1% CREAM 15GM TOP SCH ×2 (20:08→20:19)
[2018-03-26] VITALS: BP_SYST 102; BP_SYST 114; BP_DIAS 65; BP_DIAS 71
[2018-03-26] MEDS: HALOPERIDOL LACTATE 5MG/ML VIAL IM PRN ×2 (02:39→22:33)
[2018-03-26 04:00] VITALS: BP 107/70
[2018-03-26 08:30] VITALS: BP 111/57
[2018-03-26] MEDS: FAMOTIDINE 20MG TABLET PO SCH ×2 (11:10→22:14)
[2018-03-26] MEDS: OLANZAPINE 10MG TABLET PO SCH ×3 (11:10→22:14)
[2018-03-26] MEDS: TRIAMCINOLONE ACETONIDE 0.1% CREAM 15GM TOP SCH ×2 (11:11→21:00)
[2018-03-26] MEDS: NEOMY SULF/BACITRAC ZN/POLY OINT 28GM TOP SCH ×2 (11:11→21:00)
[2018-03-26 12:00] VITALS: BP 106/56
[2018-03-26 16:00] VITALS: BP 109/68
[2018-03-26 20:00] VITALS: BP 115/76
[2018-03-27] VITALS: BP 102/65
[2018-03-27] MEDS: FAMOTIDINE 20MG TABLET PO SCH ×2 (09:02→21:33)
[2018-03-27] MEDS: TRIAMCINOLONE ACETONIDE 0.1% CREAM 15GM TOP SCH ×2 (11:05→21:34)
[2018-03-27] MEDS: NEOMY SULF/BACITRAC ZN/POLY OINT 28GM TOP SCH ×2 (11:05→21:34)
[2018-03-27 12:00] VITALS: BP 80/48
[2018-03-27] MEDS: HALOPERIDOL LACTATE 5MG/ML VIAL IM PRN ×2 (13:57→22:53)
[2018-03-27] MEDS ORDERED: LEVETIRACETAM 500 MG in SODIUM CHLORIDE 0.9% 100 ML IV SCH (14:00)
[2018-03-27] MEDS ORDERED: LORAZEPAM 2MG/ML CPJ IM SCH (14:30)
[2018-03-27 16:00] VITALS: BP 103/68
[2018-03-27] MEDS: OLANZAPINE 10MG TABLET PO SCH (18:43)
[2018-03-27 20:00] VITALS: BP 109/74
[2018-03-28] VITALS: BP 118/59
[2018-03-28 04:00] VITALS: BP 124/91
[2018-03-28 08:00] VITALS: BP 101/72
[2018-03-28] MEDS: TRIAMCINOLONE ACETONIDE 0.1% CREAM 15GM TOP SCH ×2 (08:54→21:16)
[2018-03-28] MEDS: LEVETIRACETAM 500 MG in SODIUM CHLORIDE 0.9% 100 ML IV SCH ×2 (08:54→21:16)
[2018-03-28] MEDS: FAMOTIDINE 20MG TABLET PO SCH ×2 (08:55→21:16)
[2018-03-28] MEDS: NEOMY SULF/BACITRAC ZN/POLY OINT 28GM TOP SCH ×2 (08:55→21:16)
[2018-03-28] MEDS: OLANZAPINE 10MG TABLET PO SCH ×2 (08:55→16:38)
[2018-03-28] MEDS ORDERED: INFLUENZA VIRUS VACCINE(AFLURIA) 0.5ML SYR IM ONE (09:00)
[2018-03-28] MEDS ORDERED: PNEUMOCOCCAL 23-VAL P-SAC VAC 0.5 ML IM ONE (09:00)
[2018-03-28 12:00] VITALS: BP 90/55
[2018-03-28 16:00] VITALS: BP 106/67
[2018-03-28 20:00] VITALS: BP 107/68
[2018-03-28] MEDS: HALOPERIDOL LACTATE 5MG/ML VIAL IM PRN (23:14)
[2018-03-29 00:08] VITALS: BP 103/84
[2018-03-29 04:00] VITALS: BP 100/68
[2018-03-29] MEDS: FAMOTIDINE 20MG TABLET PO SCH ×2 (08:01→21:08)
[2018-03-29] MEDS: OLANZAPINE 10MG TABLET PO SCH ×2 (08:01→17:28)
[2018-03-29] MEDS: LEVETIRACETAM 500 MG in SODIUM CHLORIDE 0.9% 100 ML IV SCH (08:02)
[2018-03-29] MEDS: NEOMY SULF/BACITRAC ZN/POLY OINT 28GM TOP SCH ×2 (08:03→21:11)
[2018-03-29] MEDS: TRIAMCINOLONE ACETONIDE 0.1% CREAM 15GM TOP SCH ×2 (08:03→21:09)
[2018-03-29 12:00] VITALS: BP 110/70
[2018-03-29 16:00] VITALS: BP 120/70
[2018-03-29 20:00] VITALS: BP 101/66
[2018-03-29] MEDS: LEVETIRACETAM 500MG/5ML CUP PO SCH (21:08)
[2018-03-30] VITALS: BP 100/77
[2018-03-30 04:00] VITALS: BP 108/66
[2018-03-30] MEDS: FAMOTIDINE 20MG TABLET PO SCH ×2 (08:14→21:42)
[2018-03-30] MEDS: LEVETIRACETAM 500MG/5ML CUP PO SCH ×2 (08:14→21:42)
[2018-03-30] MEDS: OLANZAPINE 10MG TABLET PO SCH ×2 (08:14→17:23)
[2018-03-30] MEDS: NEOMY SULF/BACITRAC ZN/POLY OINT 28GM TOP SCH ×2 (08:17→21:43)
[2018-03-30] MEDS: TRIAMCINOLONE ACETONIDE 0.1% CREAM 15GM TOP SCH ×2 (08:18→21:44)
[2018-03-30 08:30] VITALS: BP 106/56
[2018-03-30 12:56] VITALS: BP 101/56
[2018-03-30 16:00] VITALS: BP 106/55
[2018-03-30 20:00] VITALS: BP 103/60
[2018-03-31] VITALS (7 sets, daily range): BP systolic 113–126; BP diastolic 60–95
[2018-03-31 07:11] LABS: BASOPHILS % 1.4 % (0.0-2.0); EOSINOPHILS % 2.8 % (0.0-5.0); HEMATOCRIT. 39.1 % (42.0-52.0); HEMOGLOBIN. 13.4 g/dL (14.0-18.0); LYMPHOCYTES % 33.4 % (20.0-50.0); MEAN CORPUSCULAR HEMOGLOBIN 31.3 pg (28.0-32.0); MEAN CORPUSCULAR VOLUME 91.7 fL (80.0-94.0); MEAN PLATELET VOLUME 8.6 fl (7.4-10.4); MONOCYTES % 7.4 % (2.0-8.0); PLATELET 234 x1000/uL (130-400); RED BLOOD CELL COUNT 4.27 mill/uL (4.7-6.1); RED CELL DISTRIBUTION WIDTH 13.5 % (11.6-14.6)
[2018-03-31 07:41] LABS: CHLORIDE 106 mEq/L (98-107)
[2018-03-31] MEDS: OLANZAPINE 10MG TABLET PO SCH ×2 (08:10→17:54)
[2018-03-31] MEDS: FAMOTIDINE 20MG TABLET PO SCH ×2 (08:10→20:09)
[2018-03-31] MEDS: TRIAMCINOLONE ACETONIDE 0.1% CREAM 15GM TOP SCH ×2 (08:11→20:10)
[2018-03-31] MEDS: LEVETIRACETAM 500MG/5ML CUP PO SCH ×2 (08:12→20:09)
[2018-03-31] MEDS: HALOPERIDOL LACTATE 5MG/ML VIAL IM PRN ×2 (22:50)
[2018-04-01] VITALS: BP 120/79
[2018-04-01 04:00] VITALS: BP 123/68
[2018-04-01 08:00] VITALS: BP 101/56
[2018-04-01] MEDS: OLANZAPINE 10MG TABLET PO SCH ×2 (08:52→18:57)
[2018-04-01] MEDS: LEVETIRACETAM 500MG/5ML CUP PO SCH ×2 (08:52→20:14)
[2018-04-01] MEDS: TRIAMCINOLONE ACETONIDE 0.1% CREAM 15GM TOP SCH ×2 (08:52→20:13)
[2018-04-01] MEDS: FAMOTIDINE 20MG TABLET PO SCH ×2 (08:52→20:14)
[2018-04-01 12:24] VITALS: BP 98/70
[2018-04-01 16:36] VITALS: BP 94/64
[2018-04-01 20:00] VITALS: BP 100/66
[2018-04-02] MEDS: HALOPERIDOL LACTATE 5MG/ML VIAL IM PRN (01:05)
[2018-04-02 04:00] VITALS: BP 113/58
[2018-04-02 08:00] VITALS: BP 108/56
[2018-04-02] MEDS: OLANZAPINE 10MG TABLET PO SCH (09:34)
[2018-04-02] MEDS: FAMOTIDINE 20MG TABLET PO SCH ×2 (09:34→20:01)
[2018-04-02] MEDS: LEVETIRACETAM 500MG/5ML CUP PO SCH ×2 (09:34→20:01)
[2018-04-02] MEDS: TRIAMCINOLONE ACETONIDE 0.1% CREAM 15GM TOP SCH ×2 (09:34→20:01)
[2018-04-02 16:00] VITALS: BP 136/45
[2018-04-02 20:00] VITALS: BP 123/81
[2018-04-03] VITALS: BP 134/110
[2018-04-03 04:00] VITALS: BP 127/79
[2018-04-03 08:00] VITALS: BP 111/78
[2018-04-03] MEDS: LEVETIRACETAM 500MG/5ML CUP PO SCH ×2 (08:09→21:22)
[2018-04-03] MEDS: FAMOTIDINE 20MG TABLET PO SCH ×2 (08:09→21:22)
[2018-04-03] MEDS: TRIAMCINOLONE ACETONIDE 0.1% CREAM 15GM TOP SCH ×2 (08:10→21:23)
[2018-04-03 12:00] VITALS: BP 120/74
[2018-04-03 16:00] VITALS: BP 127/78
[2018-04-03 20:00] VITALS: BP 116/73
[2018-04-04] VITALS: BP 135/75
[2018-04-04] MEDS: HALOPERIDOL LACTATE 5MG/ML VIAL IM PRN (03:05)
[2018-04-04 04:00] VITALS: BP 128/77
[2018-04-04 08:00] VITALS: BP 118/70
[2018-04-04] MEDS: LEVETIRACETAM 500MG/5ML CUP PO SCH ×2 (09:06→22:05)
[2018-04-04] MEDS: FAMOTIDINE 20MG TABLET PO SCH ×2 (09:06→22:05)
[2018-04-04] MEDS: TRIAMCINOLONE ACETONIDE 0.1% CREAM 15GM TOP SCH ×2 (17:49→22:06)
[2018-04-04 17:52] VITALS: BP 125/73
[2018-04-04 20:00] VITALS: BP 91/62
[2018-04-05] VITALS: BP 130/81
[2018-04-05 04:00] VITALS: BP 114/80
[2018-04-05 08:00] VITALS: BP 130/91
[2018-04-05] MEDS: LEVETIRACETAM 500MG/5ML CUP PO SCH ×2 (10:13→20:48)
[2018-04-05] MEDS: FAMOTIDINE 20MG TABLET PO SCH ×2 (10:13→20:48)
[2018-04-05] MEDS: TRIAMCINOLONE ACETONIDE 0.1% CREAM 15GM TOP SCH ×2 (10:14→20:51)
[2018-04-05 12:00] VITALS: BP 100/60
[2018-04-05 16:00] VITALS: BP 100/60
[2018-04-05 20:00] VITALS: BP 94/65
[2018-04-05] MEDS: HALOPERIDOL LACTATE 5MG/ML VIAL IM PRN (23:56)
[2018-04-06] VITALS: BP 107/69
[2018-04-06 04:00] VITALS: BP 97/76
[2018-04-06 08:00] VITALS: BP 110/73
[2018-04-06] MEDS: FAMOTIDINE 20MG TABLET PO SCH ×2 (09:10→21:35)
[2018-04-06] MEDS: LEVETIRACETAM 500MG/5ML CUP PO SCH ×2 (09:10→21:35)
[2018-04-06] MEDS: TRIAMCINOLONE ACETONIDE 0.1% CREAM 15GM TOP SCH ×2 (09:11→21:35)
[2018-04-06 12:00] VITALS: BP 116/70
[2018-04-06 16:00] VITALS: BP 112/66
[2018-04-06 20:00] VITALS: BP 106/71
[2018-04-07] VITALS: BP 110/80
[2018-04-07 04:00] VITALS: BP 123/84
[2018-04-07 08:00] VITALS: BP 116/70
[2018-04-07] MEDS: LEVETIRACETAM 500MG/5ML CUP PO SCH ×2 (11:07→20:36)
[2018-04-07] MEDS: FAMOTIDINE 20MG TABLET PO SCH ×2 (11:08→20:36)
[2018-04-07 16:00] VITALS: BP 113/46
[2018-04-07 20:00] VITALS: BP 108/73
[2018-04-07] MEDS: TRIAMCINOLONE ACETONIDE 0.1% CREAM 15GM TOP SCH (20:36)
[2018-04-08] VITALS: BP 115/78
[2018-04-08 04:00] VITALS: BP 113/73
[2018-04-08 08:04] VITALS: BP 114/76
[2018-04-08] MEDS: FAMOTIDINE 20MG TABLET PO SCH ×2 (08:31→21:30)
[2018-04-08] MEDS: LEVETIRACETAM 500MG/5ML CUP PO SCH ×2 (08:31→21:30)
[2018-04-08] MEDS: TRIAMCINOLONE ACETONIDE 0.1% CREAM 15GM TOP SCH ×2 (08:33→21:32)
[2018-04-08 12:00] VITALS: BP 116/76
[2018-04-08 16:59] VITALS: BP 120/72
[2018-04-08 20:00] VITALS: BP 102/76
[2018-04-09] VITALS: BP 109/83
[2018-04-09 04:00] VITALS: BP 103/63
[2018-04-09 08:00] VITALS: BP 106/56
[2018-04-09] MEDS: FAMOTIDINE 20MG TABLET PO SCH ×2 (09:52→21:10)
[2018-04-09] MEDS: LEVETIRACETAM 500MG/5ML CUP PO SCH ×2 (09:52→21:10)
[2018-04-09] MEDS: TRIAMCINOLONE ACETONIDE 0.1% CREAM 15GM TOP SCH (09:54)
[2018-04-09 12:00] VITALS: BP 101/51
[2018-04-09 16:00] VITALS: BP 115/65
[2018-04-09 20:00] VITALS: BP 117/78
[2018-04-10] VITALS (7 sets, daily range): BP systolic 106–130; BP diastolic 63–87
[2018-04-10] MEDS: FAMOTIDINE 20MG TABLET PO SCH ×2 (08:16→20:12)
[2018-04-10] MEDS: LEVETIRACETAM 500MG/5ML CUP PO SCH ×2 (08:16→20:12)
[2018-04-10] MEDS: FUROSEMIDE 40MG TABLET PO SCH (15:13)
[2018-04-10] MEDS: POTASSIUM CHLORIDE 20MEQ TABLET SR PO SCH (15:13)
[2018-04-11] VITALS: BP 110/60
[2018-04-11 04:00] VITALS: BP 111/85
[2018-04-11 08:00] VITALS: BP 102/64
[2018-04-11] MEDS: FUROSEMIDE 40MG TABLET PO SCH (09:45)
[2018-04-11] MEDS: POTASSIUM CHLORIDE 20MEQ TABLET SR PO SCH (09:45)
[2018-04-11] MEDS: FAMOTIDINE 20MG TABLET PO SCH ×2 (09:45→21:06)
[2018-04-11] MEDS: LEVETIRACETAM 500MG/5ML CUP PO SCH ×2 (09:45→21:06)
[2018-04-11 12:00] VITALS: BP 126/83
[2018-04-11 17:17] VITALS: BP 103/71
[2018-04-11 20:00] VITALS: BP 96/63
[2018-04-12] VITALS: BP 100/66
[2018-04-12 04:00] VITALS: BP 126/75
[2018-04-12 08:00] VITALS: BP 99/51
[2018-04-12] MEDS: POTASSIUM CHLORIDE 20MEQ TABLET SR PO SCH (09:52)
[2018-04-12] MEDS: FAMOTIDINE 20MG TABLET PO SCH ×2 (09:52→21:32)
[2018-04-12] MEDS: FUROSEMIDE 40MG TABLET PO SCH (09:52)
[2018-04-12] MEDS: LEVETIRACETAM 500MG/5ML CUP PO SCH ×2 (09:52→21:37)
[2018-04-12 12:00] VITALS: BP 101/63
[2018-04-12 16:00] VITALS: BP 108/76
[2018-04-12 20:00] VITALS: BP 110/78
[2018-04-13] VITALS: BP 115/80
[2018-04-13 04:00] VITALS: BP 117/86
[2018-04-13 08:00] VITALS: BP 110/60
[2018-04-13 08:16] LABS: CHLORIDE 103 mEq/L (98-107)
[2018-04-13] MEDS: LEVETIRACETAM 500MG/5ML CUP PO SCH ×2 (08:28→21:26)
[2018-04-13] MEDS: FAMOTIDINE 20MG TABLET PO SCH ×2 (08:29→21:26)
[2018-04-13] MEDS: POTASSIUM CHLORIDE 10MEQ TABLET SR PO SCH (08:29)
[2018-04-13] MEDS: FUROSEMIDE 40MG TABLET PO SCH (08:29)
[2018-04-13 12:00] VITALS: BP 112/70
[2018-04-13 16:00] VITALS: BP 110/60
[2018-04-13 20:00] VITALS: BP 120/84
[2018-04-14] VITALS: BP 131/84
[2018-04-14 04:00] VITALS: BP 139/88
[2018-04-14 08:00] VITALS: BP 112/75
[2018-04-14] MEDS: POTASSIUM CHLORIDE 10MEQ TABLET SR PO SCH (08:22)
[2018-04-14] MEDS: FUROSEMIDE 40MG TABLET PO SCH (08:22)
[2018-04-14] MEDS: FAMOTIDINE 20MG TABLET PO SCH ×2 (08:22→21:20)
[2018-04-14] MEDS: LEVETIRACETAM 500MG/5ML CUP PO SCH ×2 (08:23→21:20)
[2018-04-14 12:00] VITALS: BP 110/83
[2018-04-14 16:00] VITALS: BP 100/63
[2018-04-14 20:00] VITALS: BP 96/66
[2018-04-15] VITALS: BP 129/85
[2018-04-15 04:00] VITALS: BP 116/79
[2018-04-15 08:00] VITALS: BP 112/82
[2018-04-15] MEDS: POTASSIUM CHLORIDE 10MEQ TABLET SR PO SCH (08:24)
[2018-04-15] MEDS: FAMOTIDINE 20MG TABLET PO SCH (08:24)
[2018-04-15] MEDS: FUROSEMIDE 40MG TABLET PO SCH (08:24)
[2018-04-15] MEDS: LEVETIRACETAM 500MG/5ML CUP PO SCH ×2 (08:24→20:47)
[2018-04-15 12:00] VITALS: BP 108/79
[2018-04-15 16:00] VITALS: BP 95/69
[2018-04-15 20:00] VITALS: BP 97/73
[2018-04-16] VITALS: BP 136/95
[2018-04-16 04:00] VITALS: BP 106/63
[2018-04-16 07:50] VITALS: BP 106/65
[2018-04-16] MEDS: FUROSEMIDE 40MG TABLET PO SCH (08:24)
[2018-04-16] MEDS: LEVETIRACETAM 500MG/5ML CUP PO SCH ×2 (08:24→20:16)
[2018-04-16] MEDS: POTASSIUM CHLORIDE 10MEQ TABLET SR PO SCH (08:24)
[2018-04-16 16:00] VITALS: BP 93/55
[2018-04-16 20:00] VITALS: BP 121/71
[2018-04-17] VITALS: BP 150/92
[2018-04-17 04:00] VITALS: BP 148/89
[2018-04-17 08:52] VITALS: BP 131/94
[2018-04-17] MEDS: POTASSIUM CHLORIDE 10MEQ TABLET SR PO SCH (09:28)
[2018-04-17] MEDS: LEVETIRACETAM 500MG/5ML CUP PO SCH ×2 (09:28→20:52)
[2018-04-17] MEDS: FUROSEMIDE 40MG TABLET PO SCH (09:28)
[2018-04-17 16:36] VITALS: BP 91/60
[2018-04-17 20:00] VITALS: BP 109/79
[2018-04-18] VITALS: BP 124/83
[2018-04-18 04:00] VITALS: BP 110/74
[2018-04-18 08:00] VITALS: BP 109/73
[2018-04-18 08:46] LABS: CHLORIDE 104 mEq/L (98-107)
[2018-04-18] MEDS: LEVETIRACETAM 500MG/5ML CUP PO SCH ×2 (09:19→21:22)
[2018-04-18] MEDS: POTASSIUM CHLORIDE 10MEQ TABLET SR PO SCH (09:20)
[2018-04-18] MEDS: FUROSEMIDE 40MG TABLET PO SCH (09:20)
[2018-04-18 12:00] VITALS: BP 112/71
[2018-04-18 16:00] VITALS: BP 107/77
[2018-04-18 20:00] VITALS: BP 103/75
[2018-04-19] VITALS: BP 126/93
[2018-04-19 04:00] VITALS: BP 130/70
[2018-04-19 08:00] VITALS: BP 109/72
[2018-04-19] MEDS: POTASSIUM CHLORIDE 10MEQ TABLET SR PO SCH (08:58)
[2018-04-19] MEDS: FUROSEMIDE 40MG TABLET PO SCH (08:59)
[2018-04-19] MEDS: LEVETIRACETAM 500MG/5ML CUP PO SCH ×2 (08:59→21:15)
[2018-04-19 12:00] VITALS: BP 112/76
[2018-04-19 16:30] VITALS: BP 118/78
[2018-04-19 20:00] VITALS: BP 95/70
[2018-04-20] VITALS: BP 127/78
[2018-04-20 04:00] VITALS: BP 115/70
[2018-04-20 08:00] VITALS: BP 126/79
[2018-04-20] MEDS: POTASSIUM CHLORIDE 10MEQ TABLET SR PO SCH (08:31)
[2018-04-20] MEDS: LEVETIRACETAM 500MG/5ML CUP PO SCH ×2 (08:31→21:27)
[2018-04-20] MEDS: FUROSEMIDE 40MG TABLET PO SCH (08:31)
[2018-04-20 12:00] VITALS: BP 91/51
[2018-04-20 16:00] VITALS: BP 98/67
[2018-04-20 20:00] VITALS: BP 121/86
[2018-04-21] VITALS: BP 118/80
[2018-04-21 04:00] VITALS: BP 110/80
[2018-04-21 08:00] VITALS: BP 124/72
[2018-04-21] MEDS: FUROSEMIDE 40MG TABLET PO SCH (09:17)
[2018-04-21] MEDS: LEVETIRACETAM 500MG/5ML CUP PO SCH ×2 (09:17→20:39)
[2018-04-21] MEDS: POTASSIUM CHLORIDE 10MEQ TABLET SR PO SCH (09:17)
[2018-04-21 12:00] VITALS: BP 100/65
[2018-04-21 16:00] VITALS: BP 112/70
[2018-04-21 20:00] VITALS: BP 108/83
[2018-04-22] VITALS: BP 110/81
[2018-04-22 04:00] VITALS: BP 128/85
[2018-04-22 08:00] VITALS: BP 132/76
[2018-04-22] MEDS: FUROSEMIDE 40MG TABLET PO SCH (09:06)
[2018-04-22] MEDS: POTASSIUM CHLORIDE 10MEQ TABLET SR PO SCH (09:06)
[2018-04-22] MEDS: LEVETIRACETAM 500MG/5ML CUP PO SCH ×2 (09:06→20:52)
[2018-04-22 12:46] VITALS: BP 121/86
[2018-04-22 16:47] VITALS: BP 99/67
[2018-04-22 20:00] VITALS: BP 100/62
[2018-04-23] VITALS (7 sets, daily range): BP systolic 97–137; BP diastolic 51–85
[2018-04-23] MEDS: POTASSIUM CHLORIDE 10MEQ TABLET SR PO SCH (09:11)
[2018-04-23] MEDS: FUROSEMIDE 40MG TABLET PO SCH (09:11)
[2018-04-23] MEDS: LEVETIRACETAM 500MG/5ML CUP PO SCH ×2 (09:11→20:39)
[2018-04-24] VITALS (9 sets, daily range): BP systolic 97–120; BP diastolic 53–79
[2018-04-24] MEDS: FUROSEMIDE 40MG TABLET PO SCH (08:40)
[2018-04-24] MEDS: LEVETIRACETAM 500MG/5ML CUP PO SCH ×2 (08:41→20:32)
[2018-04-24] MEDS: POTASSIUM CHLORIDE 10MEQ TABLET SR PO SCH (08:41)
[2018-04-25] VITALS (7 sets, daily range): BP systolic 91–141; BP diastolic 54–88
[2018-04-25] MEDS: LEVETIRACETAM 500MG/5ML CUP PO SCH ×2 (08:42→20:26)
[2018-04-25] MEDS: FUROSEMIDE 40MG TABLET PO SCH (08:42)
[2018-04-25] MEDS: POTASSIUM CHLORIDE 10MEQ TABLET SR PO SCH (08:43)
[2018-04-26] VITALS: BP 120/78
[2018-04-26 04:00] VITALS: BP 132/88
[2018-04-26 08:00] VITALS: BP 106/59
[2018-04-26] MEDS: FUROSEMIDE 40MG TABLET PO SCH (08:47)
[2018-04-26] MEDS: POTASSIUM CHLORIDE 10MEQ TABLET SR PO SCH (08:47)
[2018-04-26] MEDS: LEVETIRACETAM 500MG/5ML CUP PO SCH ×2 (08:47→20:06)
[2018-04-26 12:22] VITALS: BP 95/56
[2018-04-26 16:00] VITALS: BP 90/52
[2018-04-26 20:00] VITALS: BP 101/71
[2018-04-27] VITALS: BP 118/72
[2018-04-27 04:00] VITALS: BP 127/87
[2018-04-27 08:00] VITALS: BP 104/66
[2018-04-27] MEDS: POTASSIUM CHLORIDE 10MEQ TABLET SR PO SCH (08:14)
[2018-04-27] MEDS: FUROSEMIDE 40MG TABLET PO SCH (08:14)
[2018-04-27 12:00] VITALS: BP 91/63
[2018-04-27 16:19] VITALS: BP 100/56
[2018-04-27 20:00] VITALS: BP 106/73
[2018-04-27] MEDS: LEVETIRACETAM 500MG/5ML CUP PO SCH (21:25)
[2018-04-28] VITALS: BP 107/83
[2018-04-28 04:00] VITALS: BP 94/56
[2018-04-28 08:00] VITALS: BP 123/79
[2018-04-28] MEDS: FUROSEMIDE 40MG TABLET PO SCH (08:13)
[2018-04-28] MEDS: LEVETIRACETAM 500MG/5ML CUP PO SCH ×2 (08:14→21:11)
[2018-04-28] MEDS: POTASSIUM CHLORIDE 10MEQ TABLET SR PO SCH (08:14)
[2018-04-28 12:00] VITALS: BP 108/81
[2018-04-28 16:00] VITALS: BP 101/66
[2018-04-28 20:00] VITALS: BP 113/80
[2018-04-29] VITALS: BP 128/87
[2018-04-29 04:00] VITALS: BP 115/82
[2018-04-29 08:00] VITALS: BP 85/57
[2018-04-29] MEDS: FUROSEMIDE 40MG TABLET PO SCH (09:00)
[2018-04-29] MEDS: POTASSIUM CHLORIDE 10MEQ TABLET SR PO SCH (09:19)
[2018-04-29] MEDS: LEVETIRACETAM 500MG/5ML CUP PO SCH ×2 (09:19→20:38)
[2018-04-29 12:00] VITALS: BP 85/57
[2018-04-29 15:48] VITALS: BP 105/73
[2018-04-30 04:00] VITALS: BP 151/88
[2018-04-30 07:39] LABS: BASOPHILS % 1.1 % (0.0-2.0); EOSINOPHILS % 1.3 % (0.0-5.0); HEMATOCRIT. 38.5 % (42.0-52.0); HEMOGLOBIN. 13.2 g/dL (14.0-18.0); LYMPHOCYTES % 34.3 % (20.0-50.0); MEAN CORPUSCULAR HEMOGLOBIN 31.5 pg (28.0-32.0); MEAN CORPUSCULAR VOLUME 91.9 fL (80.0-94.0); MEAN PLATELET VOLUME 8.3 fl (7.4-10.4); MONOCYTES % 7.8 % (2.0-8.0); NEUTROPHILS % 55.5 % (40.0-76.0); PLATELET 259 x1000/uL (130-400); RED BLOOD CELL COUNT 4.19 mill/uL (4.7-6.1); RED CELL DISTRIBUTION WIDTH 14.3 % (11.6-14.6)
[2018-04-30 07:46] LABS: CHLORIDE 105 mEq/L (98-107)
[2018-04-30 08:00] VITALS: BP 139/86
[2018-04-30] MEDS: LEVETIRACETAM 500MG/5ML CUP PO SCH ×2 (08:31→21:25)
[2018-04-30] MEDS: POTASSIUM CHLORIDE 10MEQ TABLET SR PO SCH (08:31)
[2018-04-30] MEDS: FUROSEMIDE 40MG TABLET PO SCH (08:31)
[2018-04-30 12:00] VITALS: BP 117/92
[2018-04-30 16:00] VITALS: BP 99/58
[2018-04-30 20:00] VITALS: BP 113/78
[2018-05-01] VITALS: BP 130/76
[2018-05-01 04:00] VITALS: BP 114/80
[2018-05-01 08:00] VITALS: BP 126/79
[2018-05-01] MEDS: POTASSIUM CHLORIDE 10MEQ TABLET SR PO SCH (09:02)
[2018-05-01] MEDS: LEVETIRACETAM 500MG/5ML CUP PO SCH ×2 (09:02→20:49)
[2018-05-01] MEDS: FUROSEMIDE 40MG TABLET PO SCH (09:02)
[2018-05-01 12:00] VITALS: BP 101/77
[2018-05-01 16:00] VITALS: BP 102/63
[2018-05-01 20:00] VITALS: BP 101/66
[2018-05-02] VITALS: BP 110/77
[2018-05-02 04:00] VITALS: BP 115/66
[2018-05-02 08:00] VITALS: BP 109/89
[2018-05-02] MEDS: POTASSIUM CHLORIDE 10MEQ TABLET SR PO SCH (09:17)
[2018-05-02] MEDS: FUROSEMIDE 40MG TABLET PO SCH (09:17)
[2018-05-02] MEDS: LEVETIRACETAM 500MG/5ML CUP PO SCH ×2 (09:17→20:43)
[2018-05-02 12:00] VITALS: BP 100/60
[2018-05-02 16:00] VITALS: BP 135/64
[2018-05-02 20:00] VITALS: BP 123/80
[2018-05-03] VITALS (7 sets, daily range): BP systolic 96–126; BP diastolic 56–83
[2018-05-03] MEDS: POTASSIUM CHLORIDE 10MEQ TABLET SR PO SCH (09:08)
[2018-05-03] MEDS: LEVETIRACETAM 500MG/5ML CUP PO SCH ×2 (09:08→20:36)
[2018-05-03] MEDS: FUROSEMIDE 40MG TABLET PO SCH (09:08)
[2018-05-04] VITALS: BP 103/73
[2018-05-04 04:00] VITALS: BP 124/85
[2018-05-04 08:00] VITALS: BP 123/62
[2018-05-04] MEDS: FUROSEMIDE 40MG TABLET PO SCH (09:00)
[2018-05-04] MEDS: LEVETIRACETAM 500MG/5ML CUP PO SCH ×2 (09:27→20:30)
[2018-05-04] MEDS: POTASSIUM CHLORIDE 10MEQ TABLET SR PO SCH (09:27)
[2018-05-04 12:00] VITALS: BP 101/64
[2018-05-04 16:00] VITALS: BP 110/69
[2018-05-04 20:00] VITALS: BP 108/71
[2018-05-05] VITALS: BP 106/67
[2018-05-05 04:00] VITALS: BP_SYST 115
[2018-05-05 08:00] VITALS: BP 99/53
[2018-05-05] MEDS: LEVETIRACETAM 500MG/5ML CUP PO SCH ×2 (08:39→20:04)
[2018-05-05] MEDS: POTASSIUM CHLORIDE 10MEQ TABLET SR PO SCH (08:39)
[2018-05-05] MEDS: FUROSEMIDE 40MG TABLET PO SCH (08:39)
[2018-05-05 12:00] VITALS: BP 101/62
[2018-05-05 16:00] VITALS: BP 109/78
[2018-05-05 22:14] VITALS: BP 111/72
[2018-05-06] VITALS: BP 133/86
[2018-05-06 04:00] VITALS: BP 104/67
[2018-05-06 07:58] VITALS: BP 123/87
[2018-05-06] MEDS: LEVETIRACETAM 500MG/5ML CUP PO SCH ×2 (08:22→20:54)
[2018-05-06] MEDS: FUROSEMIDE 40MG TABLET PO SCH (08:22)
[2018-05-06] MEDS: POTASSIUM CHLORIDE 10MEQ TABLET SR PO SCH (08:22)
[2018-05-06 11:00] VITALS: BP 123/87
[2018-05-06 16:00] VITALS: BP 100/63
[2018-05-06 20:03] VITALS: BP 104/66
[2018-05-07] VITALS: BP 107/61
[2018-05-07 04:00] VITALS: BP 100/72
[2018-05-07 07:57] VITALS: BP 104/75
[2018-05-07] MEDS: FUROSEMIDE 40MG TABLET PO SCH (08:46)
[2018-05-07] MEDS: POTASSIUM CHLORIDE 10MEQ TABLET SR PO SCH (08:46)
[2018-05-07] MEDS: LEVETIRACETAM 500MG/5ML CUP PO SCH ×2 (08:46→21:11)
[2018-05-07 12:00] VITALS: BP 98/78
[2018-05-07 16:00] VITALS: BP 101/69
[2018-05-07 20:00] VITALS: BP 120/72
[2018-05-08] VITALS: BP 133/93
[2018-05-08 04:00] VITALS: BP 142/91
[2018-05-08 07:44] VITALS: BP 116/74
[2018-05-08] MEDS: FUROSEMIDE 40MG TABLET PO SCH (08:25)
[2018-05-08] MEDS: POTASSIUM CHLORIDE 10MEQ TABLET SR PO SCH (08:25)
[2018-05-08] MEDS: LEVETIRACETAM 500MG/5ML CUP PO SCH ×2 (08:26→21:37)
[2018-05-08 11:53] VITALS: BP 112/64
[2018-05-08 16:00] VITALS: BP 102/70
[2018-05-08 20:00] VITALS: BP 102/61
[2018-05-09] VITALS: BP 113/70
[2018-05-09 04:00] VITALS: BP 135/69
[2018-05-09 08:00] VITALS: BP 134/81
[2018-05-09] MEDS: METOLAZONE 2.5MG TABLET PO SCH (10:18)
[2018-05-09] MEDS: LEVETIRACETAM 500MG/5ML CUP PO SCH ×2 (10:18→20:49)
[2018-05-09 12:00] VITALS: BP 118/68
[2018-05-09 16:00] VITALS: BP 108/72
[2018-05-09 20:00] VITALS: BP 104/55
[2018-05-10] VITALS: BP 123/76
[2018-05-10 04:00] VITALS: BP 107/75
[2018-05-10 08:00] VITALS: BP 95/65
[2018-05-10] MEDS: LEVETIRACETAM 500MG/5ML CUP PO SCH ×2 (09:17→21:28)
[2018-05-10] MEDS: METOLAZONE 2.5MG TABLET PO SCH (09:20)
[2018-05-10 12:00] VITALS: BP 97/65
[2018-05-10 16:00] VITALS: BP 98/66
[2018-05-10 20:00] VITALS: BP 105/72
[2018-05-11] VITALS: BP 112/81
[2018-05-11 04:00] VITALS: BP 133/73
[2018-05-11 08:00] VITALS: BP 116/81
[2018-05-11] MEDS: METOLAZONE 2.5MG TABLET PO SCH (08:55)
[2018-05-11] MEDS: LEVETIRACETAM 500MG/5ML CUP PO SCH ×2 (08:55→21:11)
[2018-05-11 12:00] VITALS: BP 108/73
[2018-05-11 16:00] VITALS: BP 100/64
[2018-05-11 20:00] VITALS: BP 101/67
[2018-05-12] VITALS: BP 122/87
[2018-05-12 04:00] VITALS: BP 101/74
[2018-05-12 08:00] VITALS: BP 119/71
[2018-05-12] MEDS: METOLAZONE 2.5MG TABLET PO SCH (09:20)
[2018-05-12] MEDS: LEVETIRACETAM 500MG/5ML CUP PO SCH ×2 (09:20→21:52)
[2018-05-12] MEDS: FUROSEMIDE 40MG TABLET PO SCH (10:59)
[2018-05-12 12:00] VITALS: BP 105/66
[2018-05-12 16:00] VITALS: BP 110/73
[2018-05-13] VITALS: BP 106/73
[2018-05-13 04:00] VITALS: BP 125/97
[2018-05-13 08:00] VITALS: BP 106/82
[2018-05-13] MEDS: METOLAZONE 2.5MG TABLET PO SCH (08:35)
[2018-05-13] MEDS: FUROSEMIDE 40MG TABLET PO SCH (09:19)
[2018-05-13] MEDS: LEVETIRACETAM 500MG/5ML CUP PO SCH ×2 (09:19→20:25)
[2018-05-13 12:00] VITALS: BP 118/60
[2018-05-13] MEDS: OLANZAPINE 5MG TABLET PO SCH (13:30)
[2018-05-13 16:00] VITALS: BP 121/50
[2018-05-13 20:00] VITALS: BP 94/63
[2018-05-14] VITALS: BP 106/80
[2018-05-14 04:00] VITALS: BP 121/73
[2018-05-14 08:00] VITALS: BP 114/82
[2018-05-14] MEDS ORDERED: METOLAZONE 5MG TABLET PO SCH (09:00)
[2018-05-14] MEDS: OLANZAPINE 5MG TABLET PO SCH (09:49)
[2018-05-14] MEDS: LEVETIRACETAM 500MG/5ML CUP PO SCH ×2 (09:49→22:18)
[2018-05-14] MEDS: FUROSEMIDE 40MG TABLET PO SCH (09:49)
[2018-05-14 20:00] VITALS: BP 115/67
[2018-05-15] VITALS: BP 118/68
[2018-05-15 04:00] VITALS: BP 102/72
[2018-05-15] MEDS: FUROSEMIDE 40MG TABLET PO SCH (08:10)
[2018-05-15] MEDS: OLANZAPINE 2.5MG TABLET PO SCH (08:10)
[2018-05-15] MEDS: LEVETIRACETAM 500MG/5ML CUP PO SCH (08:10)
[2018-05-15 20:00] VITALS: BP 125/83
[2018-05-16] VITALS: BP 104/76
[2018-05-16] MEDS: LEVETIRACETAM 500MG/5ML CUP PO SCH ×3 (05:26→21:15)
[2018-05-16 06:28] LABS: BASOPHILS % 1.3 % (0.0-2.0); EOSINOPHILS % 2.2 % (0.0-5.0); HEMATOCRIT. 40.8 % (42.0-52.0); HEMOGLOBIN. 13.7 g/dL (14.0-18.0); LYMPHOCYTES % 25.6 % (20.0-50.0); MEAN CORPUSCULAR HEMOGLOBIN 31.4 pg (28.0-32.0); MEAN CORPUSCULAR VOLUME 92.9 fL (80.0-94.0); MONOCYTES % 10.7 % (2.0-8.0); NEUTROPHILS % 60.2 % (40.0-76.0); PLATELET 300 x1000/uL (130-400); RED BLOOD CELL COUNT 4.38 mill/uL (4.7-6.1); RED CELL DISTRIBUTION WIDTH 14.3 % (11.6-14.6)
[2018-05-16 06:48] LABS: CHLORIDE 94 mEq/L (98-107)
[2018-05-16 08:00] VITALS: BP 123/61
[2018-05-16] MEDS: OLANZAPINE 2.5MG TABLET PO SCH (08:53)
[2018-05-16] MEDS: FUROSEMIDE 40MG TABLET PO SCH (09:00)
[2018-05-16 12:00] VITALS: BP 88/55
[2018-05-16] MEDS: POTASSIUM CHLORIDE 20MEQ TABLET SR PO SCH ×3 (13:42→17:47)
[2018-05-16 16:00] VITALS: BP 111/88
[2018-05-16] MEDS ORDERED: POTASSIUM CHLORIDE 20MEQ TABLET SR PO SCH (18:00)
[2018-05-16 20:00] VITALS: BP 105/64
[2018-05-17] VITALS: BP 107/56
[2018-05-17 04:00] VITALS: BP 103/70
[2018-05-17 08:00] VITALS: BP 121/83
[2018-05-17] MEDS: LEVETIRACETAM 500MG/5ML CUP PO SCH ×2 (08:29→20:34)
[2018-05-17] MEDS: OLANZAPINE 2.5MG TABLET PO SCH (08:29)
[2018-05-17] MEDS: FUROSEMIDE 40MG TABLET PO SCH (09:00)
[2018-05-17 12:00] VITALS: BP 99/75
[2018-05-17 16:00] VITALS: BP 115/70
[2018-05-17 20:00] VITALS: BP 116/76
[2018-05-17] MEDS ORDERED: POTASSIUM CHLORIDE 20MEQ TABLET SR PO NR (22:30)
[2018-05-18] VITALS: BP 144/87
[2018-05-18 04:00] VITALS: BP 93/69
[2018-05-18] MEDS ORDERED: POTASSIUM CHLORIDE 20MEQ TABLET SR PO NR (07:00)
[2018-05-18] MEDS: LEVETIRACETAM 500MG/5ML CUP PO SCH ×2 (09:01→20:20)
[2018-05-18] MEDS: OLANZAPINE 2.5MG TABLET PO SCH (09:01)
[2018-05-18] MEDS: FUROSEMIDE 40MG TABLET PO SCH (09:01)
[2018-05-18 12:30] VITALS: BP 121/76
[2018-05-18 16:00] VITALS: BP 117/74
[2018-05-18 20:00] VITALS: BP 130/88
[2018-05-19 04:00] VITALS: BP 115/92
[2018-05-19] MEDS: POTASSIUM CHLORIDE 20MEQ TABLET SR PO SCH (08:19)
[2018-05-19] MEDS: LEVETIRACETAM 500MG/5ML CUP PO SCH ×2 (08:19→20:24)
[2018-05-19] MEDS: FUROSEMIDE 40MG TABLET PO SCH (08:20)
[2018-05-19] MEDS: OLANZAPINE 2.5MG TABLET PO SCH (08:20)
[2018-05-19 20:00] VITALS: BP 126/84
[2018-05-20] VITALS: BP 109/65
[2018-05-20 04:00] VITALS: BP 123/79
[2018-05-20 08:00] VITALS: BP 129/83
[2018-05-20] MEDS: LEVETIRACETAM 500MG/5ML CUP PO SCH (08:29)
[2018-05-20] MEDS: OLANZAPINE 2.5MG TABLET PO SCH (08:29)
[2018-05-20] MEDS: FUROSEMIDE 40MG TABLET PO SCH (08:29)
[2018-05-20] MEDS: POTASSIUM CHLORIDE 20MEQ TABLET SR PO SCH (08:29)
[2018-05-20 12:00] VITALS: BP 122/68
[2018-05-20 16:00] VITALS: BP 114/75
[2018-05-20 20:00] VITALS: BP 138/88
[2018-05-21] VITALS: BP 126/82
[2018-05-21] MEDS: LEVETIRACETAM 500MG/5ML CUP PO SCH ×3 (01:08→22:08)
[2018-05-21 04:00] VITALS: BP_SYST 115; BP_SYST 133; BP_DIAS 79; BP_DIAS 89
[2018-05-21 08:00] VITALS: BP 134/82
[2018-05-21] MEDS: POTASSIUM CHLORIDE 20MEQ TABLET SR PO SCH (08:24)
[2018-05-21] MEDS: OLANZAPINE 2.5MG TABLET PO SCH (08:24)
[2018-05-21] MEDS: FUROSEMIDE 40MG TABLET PO SCH (08:24)
[2018-05-21 12:00] VITALS: BP 111/69
[2018-05-21 16:00] VITALS: BP 126/81
[2018-05-21 20:00] VITALS: BP 100/64
[2018-05-22] VITALS: BP 108/69
[2018-05-22 04:00] VITALS: BP 111/66
[2018-05-22 08:00] VITALS: BP 126/90
[2018-05-22] MEDS: POTASSIUM CHLORIDE 20MEQ TABLET SR PO SCH (08:53)
[2018-05-22] MEDS: OLANZAPINE 2.5MG TABLET PO SCH (08:53)
[2018-05-22] MEDS: LEVETIRACETAM 500MG/5ML CUP PO SCH ×2 (08:53→21:31)
[2018-05-22] MEDS: FUROSEMIDE 40MG TABLET PO SCH (08:53)
[2018-05-22 12:00] VITALS: BP 104/77
[2018-05-22 16:00] VITALS: BP 98/70
[2018-05-22 20:42] VITALS: BP 118/65
[2018-05-23 00:34] VITALS: BP 123/69
[2018-05-23 04:00] VITALS: BP 119/82
[2018-05-23 08:00] VITALS: BP 120/80
[2018-05-23] MEDS: OLANZAPINE 2.5MG TABLET PO SCH (08:29)
[2018-05-23] MEDS: FUROSEMIDE 40MG TABLET PO SCH (08:29)
[2018-05-23] MEDS: POTASSIUM CHLORIDE 20MEQ TABLET SR PO SCH (08:29)
[2018-05-23] MEDS: LEVETIRACETAM 500MG/5ML CUP PO SCH ×2 (08:29→20:25)
[2018-05-23 12:22] VITALS: BP 118/75
[2018-05-23 16:50] VITALS: BP 106/74
[2018-05-24 08:00] VITALS: BP 123/97
[2018-05-24] MEDS: LEVETIRACETAM 500MG/5ML CUP PO SCH ×2 (08:49→22:10)
[2018-05-24] MEDS: POTASSIUM CHLORIDE 20MEQ TABLET SR PO SCH (08:49)
[2018-05-24] MEDS: OLANZAPINE 2.5MG TABLET PO SCH (08:49)
[2018-05-24] MEDS: FUROSEMIDE 40MG TABLET PO SCH (08:49)
[2018-05-24 12:00] VITALS: BP 120/69
[2018-05-24 16:00] VITALS: BP 117/68
[2018-05-24 20:00] VITALS: BP 113/70
[2018-05-25] VITALS: BP 118/88
[2018-05-25 04:00] VITALS: BP 111/78
[2018-05-25 08:00] VITALS: BP 111/67
[2018-05-25 08:08] LABS: CHLORIDE 105 mEq/L (98-107)
[2018-05-25] MEDS: POTASSIUM CHLORIDE 20MEQ TABLET SR PO SCH (09:24)
[2018-05-25] MEDS: FUROSEMIDE 40MG TABLET PO SCH (09:24)
[2018-05-25] MEDS: OLANZAPINE 2.5MG TABLET PO SCH (09:24)
[2018-05-25] MEDS: LEVETIRACETAM 500MG/5ML CUP PO SCH ×2 (09:24→20:29)
[2018-05-25 12:00] VITALS: BP 119/84
[2018-05-25 16:00] VITALS: BP 124/64
[2018-05-25 20:00] VITALS: BP 121/74
[2018-05-26] VITALS: BP 111/84
[2018-05-26 04:00] VITALS: BP 126/81
[2018-05-26 08:00] VITALS: BP 111/64
[2018-05-26] MEDS: LEVETIRACETAM 500MG/5ML CUP PO SCH ×2 (08:50→20:24)
[2018-05-26] MEDS: POTASSIUM CHLORIDE 20MEQ TABLET SR PO SCH (08:50)
[2018-05-26] MEDS: FUROSEMIDE 40MG TABLET PO SCH (08:51)
[2018-05-26] MEDS: OLANZAPINE 2.5MG TABLET PO SCH (08:51)
[2018-05-26 20:00] VITALS: BP 128/96
[2018-05-26 23:52] VITALS: BP 119/76
[2018-05-27 07:00] VITALS: BP 114/74
[2018-05-27] MEDS: OLANZAPINE 2.5MG TABLET PO SCH (08:46)
[2018-05-27] MEDS: POTASSIUM CHLORIDE 20MEQ TABLET SR PO SCH (08:46)
[2018-05-27] MEDS: LEVETIRACETAM 500MG/5ML CUP PO SCH ×2 (08:46→20:53)
[2018-05-27] MEDS: FUROSEMIDE 40MG TABLET PO SCH (08:46)
[2018-05-27 12:00] VITALS: BP 121/75
[2018-05-27 16:00] VITALS: BP 122/72
[2018-05-27 20:00] VITALS: BP 132/83
[2018-05-28] VITALS: BP 127/86
[2018-05-28 04:00] VITALS: BP 132/93
[2018-05-28 08:00] VITALS: BP 123/49
[2018-05-28] MEDS: FUROSEMIDE 40MG TABLET PO SCH (10:00)
[2018-05-28] MEDS: OLANZAPINE 2.5MG TABLET PO SCH (10:00)
[2018-05-28] MEDS: POTASSIUM CHLORIDE 20MEQ TABLET SR PO SCH (10:00)
[2018-05-28] MEDS: LEVETIRACETAM 500MG/5ML CUP PO SCH ×2 (10:00→20:20)
[2018-05-28 20:00] VITALS: BP 112/78
[2018-05-29] VITALS: BP 117/99
[2018-05-29 04:00] VITALS: BP 121/81
[2018-05-29 08:00] VITALS: BP 125/73
[2018-05-29] MEDS: POTASSIUM CHLORIDE 20MEQ TABLET SR PO SCH (09:10)
[2018-05-29] MEDS: OLANZAPINE 2.5MG TABLET PO SCH (09:10)
[2018-05-29] MEDS: LEVETIRACETAM 500MG/5ML CUP PO SCH ×2 (09:10→21:48)
[2018-05-29] MEDS: FUROSEMIDE 40MG TABLET PO SCH (09:10)
[2018-05-29 12:00] VITALS: BP 110/66
[2018-05-29 16:00] VITALS: BP 122/77
[2018-05-30 08:00] VITALS: BP 101/73
[2018-05-30] MEDS: POTASSIUM CHLORIDE 20MEQ TABLET SR PO SCH (08:39)
[2018-05-30] MEDS: LEVETIRACETAM 500MG/5ML CUP PO SCH ×2 (08:39→21:58)
[2018-05-30] MEDS: OLANZAPINE 2.5MG TABLET PO SCH (08:39)
[2018-05-30] MEDS: FUROSEMIDE 40MG TABLET PO SCH (08:40)
[2018-05-30 12:00] VITALS: BP 106/78
[2018-05-30 16:00] VITALS: BP 108/72
[2018-05-30 20:00] VITALS: BP 111/73
[2018-05-30] MEDS ORDERED: DIPHENHYDRAMINE 50MG/ML VIAL IM SCH (23:30)
[2018-05-30] MEDS ORDERED: HALOPERIDOL LACTATE 5MG/ML VIAL IM SCH (23:30)
[2018-05-31] VITALS: BP 100/62
[2018-05-31 04:00] VITALS: BP 125/83
[2018-05-31 08:00] VITALS: BP 109/68
[2018-05-31] MEDS: OLANZAPINE 2.5MG TABLET PO SCH (08:32)
[2018-05-31] MEDS: POTASSIUM CHLORIDE 20MEQ TABLET SR PO SCH (08:32)
[2018-05-31] MEDS: LEVETIRACETAM 500MG/5ML CUP PO SCH ×2 (08:32→22:43)
[2018-05-31] MEDS: FUROSEMIDE 40MG TABLET PO SCH (08:32)
[2018-05-31 12:00] VITALS: BP 107/80
[2018-05-31 16:00] VITALS: BP 102/65
[2018-05-31 20:00] VITALS: BP 90/56
[2018-06-01] VITALS: BP 122/78
[2018-06-01 04:00] VITALS: BP 128/77
[2018-06-01 08:00] VITALS: BP 104/66
[2018-06-01] MEDS: POTASSIUM CHLORIDE 20MEQ TABLET SR PO SCH (10:35)
[2018-06-01] MEDS: FUROSEMIDE 40MG TABLET PO SCH (10:35)
[2018-06-01] MEDS: LEVETIRACETAM 500MG/5ML CUP PO SCH ×2 (10:35→22:51)
[2018-06-01] MEDS: OLANZAPINE 2.5MG TABLET PO SCH (10:35)
[2018-06-01] MEDS: HALOPERIDOL LACTATE 5MG/ML VIAL IM PRN ×2 (11:01→22:53)
[2018-06-01 16:00] VITALS: BP 120/74
[2018-06-01 20:00] VITALS: BP 91/60
[2018-06-02] VITALS: BP 119/78
[2018-06-02 04:00] VITALS: BP 126/71
[2018-06-02] MEDS: HALOPERIDOL LACTATE 5MG/ML VIAL IM PRN ×2 (06:58→20:56)
[2018-06-02 08:00] VITALS: BP 104/69
[2018-06-02] MEDS: POTASSIUM CHLORIDE 20MEQ TABLET SR PO SCH (08:20)
[2018-06-02] MEDS: OLANZAPINE 5MG TABLET PO SCH ×2 (08:20→17:00)
[2018-06-02] MEDS: FUROSEMIDE 40MG TABLET PO SCH (08:20)
[2018-06-02] MEDS: LEVETIRACETAM 500MG/5ML CUP PO SCH ×2 (08:21→20:56)
[2018-06-02 12:00] VITALS: BP 126/79
[2018-06-03 08:00] VITALS: BP 94/58
[2018-06-03] MEDS: OLANZAPINE 5MG TABLET PO SCH ×2 (08:42→18:50)
[2018-06-03] MEDS: POTASSIUM CHLORIDE 20MEQ TABLET SR PO SCH (08:42)
[2018-06-03] MEDS: FUROSEMIDE 40MG TABLET PO SCH (08:42)
[2018-06-03] MEDS: LEVETIRACETAM 500MG/5ML CUP PO SCH ×2 (08:43→22:56)
[2018-06-03 16:00] VITALS: BP 100/74
[2018-06-03 20:00] VITALS: BP 111/77
[2018-06-04 04:00] VITALS: BP 121/86
[2018-06-04] MEDS: HALOPERIDOL LACTATE 5MG/ML VIAL IM PRN (05:27)
[2018-06-04 08:00] VITALS: BP 122/66
[2018-06-04] MEDS: LEVETIRACETAM 500MG/5ML CUP PO SCH ×2 (08:55→22:29)
[2018-06-04] MEDS: OLANZAPINE 5MG TABLET PO SCH ×2 (08:55→18:25)
[2018-06-04] MEDS: POTASSIUM CHLORIDE 20MEQ TABLET SR PO SCH (08:55)
[2018-06-04] MEDS: FUROSEMIDE 40MG TABLET PO SCH (08:55)
[2018-06-04 12:00] VITALS: BP 121/60
[2018-06-04 16:00] VITALS: BP 98/74
[2018-06-04 20:00] VITALS: BP 95/71
[2018-06-05] VITALS: BP 102/70
[2018-06-05] MEDS: HALOPERIDOL LACTATE 5MG/ML VIAL IM PRN ×3 (01:17→17:33)
[2018-06-05 04:00] VITALS: BP 102/68
[2018-06-05 08:00] VITALS: BP 113/83
[2018-06-05] MEDS: POTASSIUM CHLORIDE 20MEQ TABLET SR PO SCH (08:36)
[2018-06-05] MEDS: OLANZAPINE 5MG TABLET PO SCH ×2 (08:36→16:18)
[2018-06-05] MEDS: LEVETIRACETAM 500MG/5ML CUP PO SCH ×2 (08:36→21:06)
[2018-06-05] MEDS: FUROSEMIDE 40MG TABLET PO SCH (08:36)
[2018-06-05 12:00] VITALS: BP 115/86
[2018-06-05 16:00] VITALS: BP_SYST 115; BP_SYST 140; BP_DIAS 84; BP_DIAS 86
[2018-06-05 20:00] VITALS: BP 113/58
[2018-06-06] VITALS: BP 115/79
[2018-06-06] MEDS: HALOPERIDOL LACTATE 5MG/ML VIAL IM PRN (01:35)
[2018-06-06 04:00] VITALS: BP 120/78
[2018-06-06 07:10] LABS: BASOPHILS % 0.9 % (0.0-2.0); EOSINOPHILS % 2.6 % (0.0-5.0); HEMATOCRIT. 39.5 % (42.0-52.0); LYMPHOCYTES % 27.6 % (20.0-50.0); MEAN CORPUSCULAR HEMOGLOBIN 30.6 pg (28.0-32.0); MEAN CORPUSCULAR VOLUME 93.1 fL (80.0-94.0); MEAN PLATELET VOLUME 8.2 fl (7.4-10.4); MONOCYTES % 8.8 % (2.0-8.0); NEUTROPHILS % 60.1 % (40.0-76.0); PLATELET 277 x1000/uL (130-400); RED BLOOD CELL COUNT 4.24 mill/uL (4.7-6.1); RED CELL DISTRIBUTION WIDTH 14.8 % (11.6-14.6)
[2018-06-06 07:19] LABS: CHLORIDE 108 mEq/L (98-107)
[2018-06-06 08:00] VITALS: BP 124/56
[2018-06-06] MEDS: OLANZAPINE 5MG TABLET PO SCH ×2 (10:20→18:03)
[2018-06-06] MEDS: LEVETIRACETAM 500MG/5ML CUP PO SCH ×2 (10:20→20:52)
[2018-06-06] MEDS: FUROSEMIDE 40MG TABLET PO SCH (10:20)
[2018-06-06] MEDS: POTASSIUM CHLORIDE 20MEQ TABLET SR PO SCH (10:20)
[2018-06-06 12:00] VITALS: BP 130/60
[2018-06-06 16:00] VITALS: BP 128/62
[2018-06-06 20:00] VITALS: BP 101/63
[2018-06-07] VITALS: BP 105/70
[2018-06-07 08:00] VITALS: BP 117/71
[2018-06-07] MEDS: POTASSIUM CHLORIDE 20MEQ TABLET SR PO SCH ×2 (09:00→10:07)
[2018-06-07] MEDS: FUROSEMIDE 40MG TABLET PO SCH ×2 (09:00→10:08)
[2018-06-07] MEDS: LEVETIRACETAM 500MG/5ML CUP PO SCH ×2 (10:07→21:45)
[2018-06-07] MEDS: OLANZAPINE 5MG TABLET PO SCH ×2 (10:08→17:23)
[2018-06-07 12:00] VITALS: BP 113/69
[2018-06-07 16:00] VITALS: BP 116/60
[2018-06-07 20:00] VITALS: BP 135/87
[2018-06-08] VITALS: BP 122/90
[2018-06-08] MEDS: HALOPERIDOL LACTATE 5MG/ML VIAL IM PRN (02:13)
[2018-06-08 04:00] VITALS: BP 134/80
[2018-06-08 08:00] VITALS: BP 102/72
[2018-06-08] MEDS: FUROSEMIDE 40MG TABLET PO SCH (08:30)
[2018-06-08] MEDS: OLANZAPINE 5MG TABLET PO SCH ×2 (09:06→18:28)
[2018-06-08] MEDS: LEVETIRACETAM 500MG/5ML CUP PO SCH ×2 (09:06→20:42)
[2018-06-08] MEDS: POTASSIUM CHLORIDE 20MEQ TABLET SR PO SCH (09:07)
[2018-06-08 12:00] VITALS: BP 117/86
[2018-06-08 16:00] VITALS: BP 129/84
[2018-06-08 20:00] VITALS: BP 119/55
[2018-06-09] VITALS: BP 121/56
[2018-06-09 04:00] VITALS: BP 105/84
[2018-06-09] MEDS: HALOPERIDOL LACTATE 5MG/ML VIAL IM PRN (05:42)
[2018-06-09 08:00] VITALS: BP 125/36
[2018-06-09] MEDS: LEVETIRACETAM 500MG/5ML CUP PO SCH ×2 (10:28→22:05)
[2018-06-09] MEDS: FUROSEMIDE 40MG TABLET PO SCH (10:29)
[2018-06-09] MEDS: POTASSIUM CHLORIDE 20MEQ TABLET SR PO SCH (10:29)
[2018-06-09] MEDS: OLANZAPINE 5MG TABLET PO SCH ×2 (10:29→17:31)
[2018-06-09 12:00] VITALS: BP 122/67
[2018-06-09 16:00] VITALS: BP 19/96
[2018-06-09 20:00] VITALS: BP 119/72
[2018-06-10] VITALS: BP 121/73
[2018-06-10 04:00] VITALS: BP 118/71
[2018-06-10] MEDS: POTASSIUM CHLORIDE 20MEQ TABLET SR PO SCH (09:38)
[2018-06-10] MEDS: OLANZAPINE 5MG TABLET PO SCH (09:38)
[2018-06-10] MEDS: LEVETIRACETAM 500MG/5ML CUP PO SCH ×2 (09:38→20:29)
[2018-06-10 12:00] VITALS: BP 123/63
[2018-06-10 16:00] VITALS: BP 112/92
[2018-06-11] MEDS: DIPHENHYDRAMINE 50MG/ML VIAL IM PRN ×2 (07:26→23:00)
[2018-06-11 08:00] VITALS: BP 132/66
[2018-06-11] MEDS: LEVETIRACETAM 500MG/5ML CUP PO SCH ×2 (09:19→22:59)
[2018-06-11] MEDS: HALOPERIDOL LACTATE 5MG/ML VIAL IM PRN ×2 (10:42→22:59)
[2018-06-11 16:00] VITALS: BP 135/82
[2018-06-11 20:00] VITALS: BP 126/80
[2018-06-12] VITALS: BP 138/93
[2018-06-12 04:00] VITALS: BP 127/90
[2018-06-12 08:00] VITALS: BP 129/78
[2018-06-12] MEDS: LEVETIRACETAM 500MG/5ML CUP PO SCH ×2 (08:44→20:56)
[2018-06-12 12:00] VITALS: BP 119/66
[2018-06-12 16:00] VITALS: BP 127/80
[2018-06-12] MEDS: HALOPERIDOL LACTATE 5MG/ML VIAL IM PRN (16:40)
[2018-06-13 08:00] VITALS: BP 105/78
[2018-06-13] MEDS: LEVETIRACETAM 500MG/5ML CUP PO SCH (08:33)
[2018-06-13 12:00] VITALS: BP 91/61
== END 2018-06-13 14:34 | DRG 20 ==
LOC: MICUNO 23:30 → MICUSO 09-05 00:10 → 6EST 09-11 20:00 → MICUSO 02-20 13:53 → 6EST 02-21 08:28 → CVICU 02-23 10:32 → 6WST 02-23 21:20 → 8WST 02-26 16:51 → UNDODISIN 03-11 20:34 → 8WST 03-28 17:40 → 6EST 05-10 07:46
PROVIDERS: ADMIT Internal Medicine; ATTEND Internal Medicine
PROC: 0HQ0XZZ Repair Scalp Skin, External Approach (ICD-10-PCS; 2017-09-04)
PROC: 00C40ZZ Extirpation of Matter from Intracranial Subdural Space, Open Approach (ICD-10-PCS; principal; 2017-09-06)
PROC: 00U207Z Supplement Dura Mater with Autologous Tissue Substitute, Open Approach (ICD-10-PCS; 2017-09-06)
PROC: 00H002Z Insertion of Monitoring Device into Brain, Open Approach (ICD-10-PCS; 2017-09-06)
PROC: 4A103BD Monitoring of Intracranial Pressure, Percutaneous Approach (ICD-10-PCS; 2017-09-06)
PROC: 0HBRXZZ Excision of Toe Nail, External Approach (ICD-10-PCS; 2018-01-05)
PROC: 0HBRXZZ Excision of Toe Nail, External Approach (ICD-10-PCS; 2018-01-05)
PROC: 0HBRXZZ Excision of Toe Nail, External Approach (ICD-10-PCS; 2018-01-05)
PROC: 0HBRXZZ Excision of Toe Nail, External Approach (ICD-10-PCS; 2018-01-05)
PROC: 0HBRXZZ Excision of Toe Nail, External Approach (ICD-10-PCS; 2018-01-05)
PROC: 0HBRXZZ Excision of Toe Nail, External Approach (ICD-10-PCS; 2018-01-05)
PROC: 0HBRXZZ Excision of Toe Nail, External Approach (ICD-10-PCS; 2018-01-05)
PROC: 0HBRXZZ Excision of Toe Nail, External Approach (ICD-10-PCS; 2018-01-05)
PROC: 0HBRXZZ Excision of Toe Nail, External Approach (ICD-10-PCS; 2018-01-05)
PROC: 0HBRXZZ Excision of Toe Nail, External Approach (ICD-10-PCS; 2018-01-05)
PROC: 0BH18EZ Insertion of Endotracheal Airway into Trachea, Via Natural or Artificial Opening Endoscopic (ICD-10-PCS; 2018-02-20)
PROC: 5A1935Z Respiratory Ventilation, Less than 24 Consecutive Hours (ICD-10-PCS; 2018-02-20)
PROC: 4A00X4Z Measurement of Central Nervous Electrical Activity, External Approach (ICD-10-PCS; 2018-02-24)
DX: S06.5X9A Traumatic subdural hemorrhage with loss of consciousness of unspecified duration, initial encounter (principal); J96.00 Acute respiratory failure, unspecified whether with hypoxia or hypercapnia; G93.41 Metabolic encephalopathy; E46 Unspecified protein-calorie malnutrition; I10 Essential (primary) hypertension; S01.01XA Laceration without foreign body of scalp, initial encounter; S01.112A Laceration without foreign body of left eyelid and periocular area, initial encounter; F20.9 Schizophrenia, unspecified; F31.9 Bipolar disorder, unspecified; M20.42 Other hammer toe(s) (acquired), left foot; M20.41 Other hammer toe(s) (acquired), right foot; G96.0 Cerebrospinal fluid leak; R60.0 Localized edema; G40.409 Other generalized epilepsy and epileptic syndromes, not intractable, without status epilepticus; B35.1 Tinea unguium; N39.0 Urinary tract infection, site not specified; L30.9 Dermatitis, unspecified; S01.81XA Laceration without foreign body of other part of head, initial encounter; Z79.899 Other long term (current) drug therapy; Z78.1 Physical restraint status; W18.39XA Other fall on same level, initial encounter; Y93.89 Activity, other specified; Y92.238 Other place in hospital as the place of occurrence of the external cause; Y99.8 Other external cause status; Z22.322 Carrier or suspected carrier of Methicillin resistant Staphylococcus aureus
CPT/HCPCS: 36415; 36600; 70551; 71045; 80048; 80051; 80156; 80165; 80185; 82140; 82375; 82550; 82805; 82962; 83735; 84100; 84443; 84478; 84484; 85027; 85379; 87070; 87075; 87077; 87186; 90686; 90732; 93005; 93306; 93970; 94003; 97163; A6261; C1713; C1758; C1893; C9113; J0330; J0690; J1165; J1200; J1630; J1650; J1953; J2060; J2175; J2250; J2270; J2370; J2704; J2710; J3010; J3490; J7030; J7040; J7050; J7120; J7121; J7512; A4315